=== PATIENT | female | born 1940 | race Caucasian/White ===

== ENCOUNTER 2019-07-24 10:18 | Outpatient (CLI) | payer MEDICARE, OTHER, SELFPAY ==
--- NOTE | ~2019-07-24 | MM_ITS ---
EXAMINATION: MM screening usama BI w genna HISTORY: Screening mammogram TECHNIQUE: Craniocaudal and mediolateral oblique 3-D tomosynthesis images were obtained and synthetic 2-D images were generated. CAD analysis was submitted and interpreted. COMPARISON: 07/20/2018 bilateral digital screening mammogram BREAST PARENCHYMAL COMPOSITION: There are scattered areas of fibroglandular density. FINDINGS: There is no evidence of suspicious mass, calcification, or architectural distortion to sugg est malignancy in either breast. There has been no suspicious interval change. IMPRESSION: 1. No mammographic evidence of malignancy. 2. Recommend routine screening mammography in one year. BI-RADS Category 1: Negative Reviewed, dictated and finalized at location B. 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
== END 2019-07-24 10:19 | disposition home or self-care (01) ==
LOC: ANHIMG 10:20
PROVIDERS: PCP Internal Medicine; Visit Provider Nurse Practitioner
DX: Z12.31 Encounter for screening mammogram for malignant neoplasm of breast (principal)
CPT/HCPCS: 77063; 77067

== ENCOUNTER 2019-08-11 12:44 | Outpatient (CLI) | payer MEDICARE, OTHER, SELFPAY | END 2019-08-11 12:45 | disposition home or self-care (01) | LOC: ANHAUDIO 12:46 | PROVIDERS: PCP Internal Medicine; Visit Provider Nurse Practitioner | DX: H90.3 Sensorineural hearing loss, bilateral (principal) | CPT/HCPCS: 92557; 92567 ==

== ENCOUNTER 2020-01-08 07:28 | Outpatient (CLI) | payer MEDICARE, OTHER, SELFPAY ==
[2020-01-08 08:08] LABS: Alanine Aminotransferase 12 U/L (4-35); Alkaline Phosphatase 68 U/L (38-126); Aspartate Amino Transferase 20 U/L (14-36); Bilirubin,Total 0.3 mg/dL (0.2-1.3); Blood Urea Nitrogen 14 mg/dL (7-17); Calcium 8.5 mg/dL (8.4-10.2); Carbon Dioxide 26 mmol/L (22-30); Chloride 106 mmol/L (98-107); Cholesterol 202 mg/dL (0-200); Estimated Glomerular Filt Rate > 60; Glucose 95 mg/dL (65-105); HDL Direct 40 mg/dL; Potassium 4.1 mmol/L (3.4-5.0); Sodium 138 mmol/L (137-145); Triglycerides 215 mg/dL (<150)
[2020-01-08 08:19] LABS: LDL Cholesterol Direct 128 mg/dL
[2020-01-08 08:37] LABS: Thyroid Stimulating Hormone 0.646 uIU/mL (0.465-4.680)
[2020-01-08 09:06] LABS: Vitamin D 25 Hydroxy 55.6 ng/mL
== END 2020-01-08 07:29 | disposition home or self-care (01) ==
PROVIDERS: PCP Internal Medicine; Visit Provider Nurse Practitioner
DX: E74.39 Other disorders of intestinal carbohydrate absorption (principal); E89.0 Postprocedural hypothyroidism; R63.5 Abnormal weight gain; E55.9 Vitamin D deficiency, unspecified
CPT/HCPCS: 36415; 80053; 80061; 82306; 84443

== ENCOUNTER 2020-01-11 09:50 | Outpatient (CLI) | payer MEDICARE, OTHER, SELFPAY ==
[2020-01-11 11:13] LABS: Iron 32 ug/dL (37-170)
[2020-01-11 11:22] LABS: Percent Iron Saturation 7 % (20-50)
== END 2020-01-11 09:51 | disposition home or self-care (01) ==
LOC: ANHLAB 09:53
PROVIDERS: PCP Internal Medicine; Visit Provider Internal Medicine
DX: G25.81 Restless legs syndrome (principal)
CPT/HCPCS: 36415; 83540; 83550

== ENCOUNTER 2020-01-16 09:52 | Outpatient (CLI) | payer MEDICARE, OTHER, SELFPAY ==
[2020-01-16 11:46] LABS: Ferritin 7.51 ng/mL (11.1-264)
== END 2020-01-16 09:53 | disposition home or self-care (01) ==
PROVIDERS: PCP Internal Medicine; Visit Provider Internal Medicine
DX: E61.1 Iron deficiency (principal)
CPT/HCPCS: 36415; 82728

== ENCOUNTER 2020-02-01 15:00 | Outpatient (CLI) | payer MEDICARE, OTHER, SELFPAY ==
--- NOTE | ~2020-02-01 | CT_ITS ---
EXAMINATION: CT chest wo con EXAM DATE: 02/01/2020 16:09 INDICATION: Solitary pulmonary nodule. TECHNIQUE: Spiral CT of the chest without contrast. Axial, coronal and sagittal images were reviewe d. Coronal maximum intensity pixel images of chest reviewed. The dose-length product (DLP) for this examination was 126.30 mGy-cm. The exposure was tailored according to patient size (auto mA exposur e control), and iterative reconstruction (ASIR) was used as additional dose reduction technique. The re is no prior study for comparison. FINDINGS: Bibasilar linear atelectasis or scarring. There is a 3 mm right lower lobe pleural-based n odule posteriorly. Several similar pleural-based opacities scattered throughout the lungs. There is m ild emphysema. Small apical peripheral opacities likely postinfectious. Mild thyromegaly. There are n o pleural or pericardial effusions. Tracheobronchial tree is patent. There is no mediastinal, hil ar or axillary lymphadenopathy. There is no pneumothorax. Mild cardiomegaly. No evidence of leatha nary arterial calcification. Benign calcifications below the right hemidiaphragm. There is thoracic spondylosis without osteoblastic or osteolytic lesions identified. IMPRESSION: 1. Scattered small nodules likely postinfectious. Consider one-year follow-up held the CT. 2. Cardiomegaly. 3. Goiter.. Reviewed, dictated and finalized at location G.
== END 2020-02-01 15:01 | disposition home or self-care (01) ==
LOC: ANHIMG 15:06
PROVIDERS: PCP Internal Medicine; Visit Provider Internal Medicine
DX: I51.7 Cardiomegaly (principal); E04.1 Nontoxic single thyroid nodule; R91.8 Other nonspecific abnormal finding of lung field
CPT/HCPCS: 71250

== ENCOUNTER 2020-07-09 10:22 | Outpatient (CLI) | payer MEDICARE, OTHER, SELFPAY ==
[2020-07-09 11:43] LABS: Vitamin D 25 Hydroxy 75.4 ng/mL
== END 2020-07-09 10:23 | disposition home or self-care (01) ==
PROVIDERS: PCP Internal Medicine; Visit Provider Internal Medicine
DX: E55.9 Vitamin D deficiency, unspecified (principal)
CPT/HCPCS: 36415; 82306

== ENCOUNTER 2020-07-31 12:28 | Outpatient (CLI) | payer MEDICARE, OTHER, SELFPAY ==
--- NOTE | ~2020-07-31 | MM_ITS ---
EXAMINATION: MM screening usama BI w genna HISTORY: Screening mammogram TECHNIQUE: Craniocaudal and mediolateral oblique 3-D tomosynthesis images were obtained and synthetic 2-D images were generated. CAD analysis was submitted and interpreted. COMPARISON: July 24, 2019, July 20, 2018 bilateral digital screening mammogram examinations BREAST PARENCHYMAL COMPOSITION: There are scattered areas of fibroglandular density. FINDINGS: There is no evidence of suspicious mass, calcification, or architectural distortion to sugg est malignancy in either breast. There has been no suspicious interval change. IMPRESSION: 1. No mammographic evidence of malignancy. 2. Recommend routine screening mammography in one year. BI-RADS Category 1: Negative Reviewed, dictated and finalized at location A. 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
== END 2020-07-31 12:29 | disposition home or self-care (01) ==
LOC: ANHIMG 12:32
PROVIDERS: PCP Internal Medicine; Visit Provider Internal Medicine
DX: Z12.31 Encounter for screening mammogram for malignant neoplasm of breast (principal)
CPT/HCPCS: 77063; 77067

== ENCOUNTER 2021-01-15 09:25 | Outpatient (CLI) | payer MEDICARE, OTHER, SELFPAY ==
[2021-01-15 10:05] LABS: Anion Gap 6 mmol/L (8-16); Blood Urea Nitrogen 15 mg/dL (7-17); Calcium 8.7 mg/dL (8.4-10.2); Carbon Dioxide 28 mmol/L (22-30); Chloride 105 mmol/L (98-107); Cholesterol 197 mg/dL (0-200); Estimated Glomerular Filt Rate > 60; Glucose 88 mg/dL (65-110); HDL Direct 49 mg/dL; Potassium 4.2 mmol/L (3.4-5.0); Sodium 139 mmol/L (137-145); Triglycerides 105 mg/dL (<150)
[2021-01-15 10:16] LABS: LDL Cholesterol Direct 112 mg/dL
[2021-01-15 12:14] LABS: Iron 94 ug/dL (37-170); Percent Iron Saturation 31 % (20-50)
[2021-01-15 12:19] LABS: Vitamin D 25 Hydroxy 64.6 ng/mL
== END 2021-01-15 09:26 | disposition home or self-care (01) ==
LOC: ANHLAB 09:38
PROVIDERS: PCP Internal Medicine; Visit Provider Internal Medicine
DX: E74.39 Other disorders of intestinal carbohydrate absorption (principal); D64.9 Anemia, unspecified; E55.9 Vitamin D deficiency, unspecified; E78.5 Hyperlipidemia, unspecified; E61.1 Iron deficiency
CPT/HCPCS: 36415; 80048; 80061; 82306; 82728; 83540; 83550

== ENCOUNTER 2021-07-12 10:27 | Emergency (ER) | payer MEDICARE, OTHER, SELFPAY ==
[2021-07-12 10:36] VITALS: BP 170/83; PULSE 71; RESP 18; TEMP 36.2; O2SAT 98
--- NOTE | 2021-07-12 10:53 | ED.GENADULT ---
HPI - General Adult General Chief complaint: Back Pain/Injury Stated complaint: Left lower back pain Time Seen by Provider: 07/12/21 10:53 Source: patient Mode of arrival: ambulatory Limitations: no limitations History of Present Illness HPI narrative: 81-year-old female patient presents to the [facility] with complaints of right-sided low back pain for the past 3 weeks. Patient states it is radiating around to the right flank into the right lower abdomen. Patient states that she went to her chiropractor last week and they did x-rays and could not see anything and told her it was probably a pulled muscle. Patient states she has been taking Aleve however the past 7 days has worsened the pain. Denies any pain with urination any foul-smelling urine and denies any dark urine that she is aware of. Patient states she really has not been drinking much water lately. Related Data Home Medications Medication Instructions Recorded Confirmed cholecalciferol (vitamin D3) 25 25 mcg PO DAILY 07/10/19 01/17/21 mcg (1,000 unit) capsule multivitamin 1 tablet PO DAILY 07/10/19 01/17/21 cyclosporine 0.05 % eye drops in a See Rx Instructions EACH EYE Q12H 07/12/19 01/17/21 dropperette Allergies Allergy/AdvReac Type Severity Reaction Status Date / Time No Known Allergies Allergy Verified 01/17/21 09:55 Review of Systems Review of Systems: CONSTITUTIONAL: Denies fever, chills, or sweats. EYES: Denies visual changes, redness, or discharge. ENT: Denies rhinorrhea, congestion, sore throat, or otalgia. CARDIOVASCULAR: Denies chest pain, palpitations, or edema. RESPIRATORY: Denies cough or dyspnea. GASTROINTESTINAL: Denies abdominal pain, nausea, vomiting, or diarrhea. GENITOURINARY: Denies dysuria denies hematuria. SKIN: Denies rash or itching. MUSCULOSKELETAL: Positive right-sided low back pain, denies joint pain, or myalgia. NEUROLOGIC: Denies headache, numbness, or weakness. PSYCHIATRIC: Denies anxiety or depression. [facility] Past Medical History Medical History (Updated 07/12/21 @ 11:02 by FRED Ballard) Arthritis Glucose intolerance Iron deficiency Restless leg syndrome Vitamin D deficiency, unspecified Xerophthalmia Surgical History Surgical History (Updated 07/12/21 @ 11:02 by FRED Ballard) H/O vaginal hysterectomy History of colostomy reversal 2018 Family History Family History Mother Family history of cardiovascular disease Sibling Family history of liver disease Carcinoma of colon Father Cerebrovascular accident Other Family history of malignant neoplasm Social History Social History Smoking status: Never smoker Second hand tobacco smoke exposure: Yes Alcohol intake: never Comments At the time of my signature I agree with nursing past medical history, surgical, social, and family history. There is no relevant family history pertinent to the presenting complaint. Exam Narrative: GENERAL: Well-appearing, well-nourished, and in no acute distress. HEAD: Normocephalic, atraumatic. EYES: PERRLA and EOMI. ENT: Nares clear, no rhinorrhea or epistaxis. Mucous membranes moist. NECK: Supple. No lymphadenopathy CHEST: Clear to auscultation. No respiratory distress. HEART: Regular rate and rhythm. No murmur heard. Normal peripheral pulses. ABDOMEN: Soft, nontender, nondistended, normal active bowel sounds. Right-sided CVA tenderness noted on percussion. EXTREMITIES: Normal range of motion. No edema. BACK: Patient is able to ambulated without assistance. Pt is seated on the chair in no obvouis distress. No surface trauma noted. No muscle tenderness to Palpation. No spasm or mass. No step-offs or deformity noted to the cervical, thoracic or lumbar spine to firm Palpation at the midline. No CVA tenderness to percussion. No saddle anesthesia. ROM: able to stand erect. Normal f
== END 2021-07-12 11:07 | disposition home or self-care (01) ==
PROVIDERS: Emergency Provider Nurse Practitioner Family; PCP Internal Medicine
DX: N30.00 Acute cystitis without hematuria (principal); M19.90 Unspecified osteoarthritis, unspecified site; G25.81 Restless legs syndrome; E74.39 Other disorders of intestinal carbohydrate absorption; E55.9 Vitamin D deficiency, unspecified
CPT/HCPCS: 81003; 87077; 87086; 87186; 99213; G0463

== ENCOUNTER 2021-07-19 08:43 | Outpatient (CLI) | payer MEDICARE, OTHER, SELFPAY ==
[2021-07-19 09:14] LABS: Anion Gap 6 mmol/L (8-16); Blood Urea Nitrogen 12 mg/dL (7-17); Calcium 9.7 mg/dL (8.4-10.2); Carbon Dioxide 30 mmol/L (22-30); Chloride 105 mmol/L (98-107); Estimated Glomerular Filt Rate > 60; Glucose 104 mg/dL (65-110); Potassium 3.9 mmol/L (3.4-5.0); Sodium 141 mmol/L (137-145)
[2021-07-19 10:05] LABS: Iron 70 ug/dL (37-170)
[2021-07-19 10:07] LABS: Vitamin D 25 Hydroxy 68.2 ng/mL
[2021-07-19 10:15] LABS: Percent Iron Saturation 21 % (20-50)
== END 2021-07-19 08:44 | disposition home or self-care (01) ==
LOC: ANHLAB 08:47
PROVIDERS: PCP Internal Medicine; Visit Provider Internal Medicine
DX: E61.1 Iron deficiency (principal); E55.9 Vitamin D deficiency, unspecified; R73.02 Impaired glucose tolerance (oral); E74.39 Other disorders of intestinal carbohydrate absorption
CPT/HCPCS: 36415; 80048; 82306; 82728; 83036; 83540; 83550

== ENCOUNTER → 2021-07-28 13:15 | Outpatient (CLI) | payer MEDICARE, OTHER, SELFPAY ==
--- NOTE | ~2021-07-28 | XR_ITS ---
XR shoulder RT min 2V DATE: 07/28/2021 14:47 INDICATION: Right shoulder pain TECHNIQUE: 4 views COMPARISON: None FINDINGS: There is diffuse osteopenia. Normal alignment at the acromioclavicular and glenohumeral joints. No fracture, dislocation, perioste al reaction or bone destruction is detected. No abnormal soft tissue calcification is noted. IMPRESSION: Osteopenia Reviewed, dictated and finalized at location A. NT SOLICITOR IMPRESSION: Osteopenia
== END ==
PROVIDERS: PCP Internal Medicine; Visit Provider Nurse Practitioner
DX: M25.511 Pain in right shoulder (principal); M85.811 Other specified disorders of bone density and structure, right shoulder
CPT/HCPCS: 73030

== ENCOUNTER 2021-08-13 10:12 | Outpatient (CLI) | payer MEDICARE, OTHER, SELFPAY ==
--- NOTE | ~2021-08-13 | MM_ITS ---
EXAMINATION: MM screening usama BI w genna HISTORY: Screening mammogram TECHNIQUE: Craniocaudal and mediolateral oblique 3-D tomosynthesis images were obtained and synthetic 2-D images were generated. CAD analysis was submitted and interpreted. COMPARISON: July 31, 2020, July 24, 2019, July 20, 2018 bilateral screening mammogram exami [place] BREAST PARENCHYMAL COMPOSITION: There are scattered areas of fibroglandular density. FINDINGS: There is no evidence of suspicious mass, calcification, or architectural distortion to sugg est malignancy in either breast. There has been no suspicious interval change. IMPRESSION: 1. No mammographic evidence of malignancy. 2. Recommend routine screening mammography in one year. BI-RADS Category 1: Negative Reviewed, dictated and finalized at location A. 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
== END 2021-08-13 10:13 | disposition home or self-care (01) ==
LOC: ANHIMG 10:13
PROVIDERS: PCP Internal Medicine; Visit Provider Nurse Practitioner
DX: Z12.31 Encounter for screening mammogram for malignant neoplasm of breast (principal)
CPT/HCPCS: 77063; 77067

== ENCOUNTER 2021-08-27 01:38 | Emergency (ER) | payer MEDICARE, OTHER, SELFPAY ==
[2021-08-27] VITALS (29 sets, daily range): BP systolic 123–167; BP diastolic 58–82; PULSE 49–69; RESP 11–19; TEMP 36.5–36.6; O2SAT 93–99
--- NOTE | ~2021-08-27 | CT_ITS ---
EXAMINATION: CT abdomen pelvis wo con DATE: 08/27/2021 04:03 INDICATION: Right flank pain. TECHNIQUE: Computed tomography (CT) of the abdomen and pelvis was performed without intravenous contr ast. Automated exposure control and iterative reconstruction technique were employed. The dose-length product was 462.59 mGy-cm. COMPARISON: CT abdomen and pelvis 06/10/2018 FINDINGS: The visualized portions of the lung bases demonstrate mild atelectasis. There are tiny pleu ral effusions. Cardiomegaly is noted. No pericardial effusion. There is a small sliding hiatal hernia . There is a 9 mm cyst in the liver. The pancreas, gallbladder, spleen, adrenal glands, and kidneys a re normal. No urolithiasis. There is a pessary in the vagina. The bladder is distended. There is an a nastomosis in the rectosigmoid. There is a large volume of stool in the colon. There are surgical sj nges of the small bowel. The appendix is not visualized. There are no pathologically enlarged lymph n odes. There is trace pelvic ascites. There is prominent fat in right inguinal canal that may be a her jose francisco. There is mild thoracolumbar spondylosis. IMPRESSION: 1. No urolithiasis. 2. Small sliding hiatal hernia. 3. Prominent fat in right inguinal canal that may be a hernia. Reviewed, dictated and finalized at location A. 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
--- NOTE | ~2021-08-27 | XR_ITS ---
EXAMINATION: XR abdomen/kub 1V DATE: 08/27/2021 04:01 INDICATION: Right flank pain. TECHNIQUE: A supine view of the abdomen was obtained. COMPARISON: CT abdomen and pelvis 08/27/2021 FINDINGS: There are no dilated loops of bowel. There is a large volume of stool in the colon. There i s a pessary in the vagina. There are surgical clips in the lower abdomen. IMPRESSION: 1. Nonobstructive bowel gas pattern. Reviewed, dictated and finalized at location A. ARE PROVIDER
--- NOTE | 2021-08-27 01:53 | ECG_ITS ---
Measurements Intervals [place] Rate: 59 P: 39 DE: 203 QRS: 5 QRSD: 85 T: 38 QT: 388 QTc: 387 Interpretive Statements SINUS BRADYCARDIA WITH FIRST-DEGREE AV BLOCK BORDERLINE ECG NO PREVIOUS ECG AVAILABLE FOR COMPARISON Electronically Signed On 08-27-2021 13:15:52 CORK GRINDER by Nelson May M.D.
[2021-08-27] MEDS: ONDANSETRON INJ 4 MG/2 ML VIAL IV PUSH (02:28)
--- NOTE | 2021-08-27 02:40 | ED.BACK ---
HPI - Back Pain/Injury General Chief Complaint: Back Pain/Injury Stated Complaint: right flank pain/ right arm pain Time Seen by Provider: 08/27/21 01:50 Source: patient Mode of arrival: ambulatory Limitations: no limitations History of Present Illness HPI Narrative: This is an 81 year old female who presents for evaluation of right flank pain. Patient has been having pain intermittently for months. She was evaluated from same pain in June and she was diagnosed with kidney infection . She was also seen by chiropractor and told she had pulled muscle . She states her pain returned on Wednesday morning. 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 She is complaining of pain located under right shoulder blade down to her waist. Her pain is worse with movement of arm and twisting of body. She has take tylenol for her pain without relief. She denies abdominal pain, nausea, vomiting, fever, shortness of breath or urinary symptoms. She has also been using heating pad without relief. Related Data Home Medications Medication Instructions Recorded Confirmed cholecalciferol (vitamin D3) 25 25 mcg PO DAILY 07/10/19 08/22/21 mcg (1,000 unit) capsule multivitamin 1 tablet PO DAILY 07/10/19 08/22/21 cyclosporine 0.05 % eye drops in a See Rx Instructions EACH EYE Q12H 07/12/19 08/22/21 dropperette tolterodine 4 mg capsule,extended 4 mg PO DAILY 08/22/21 08/22/21 release 24 hr Allergies Allergy/AdvReac Type Severity Reaction Status Date / Time No Known Allergies Allergy Verified 08/22/21 13:58 Review of Systems Review of Systems: All systems reviewed & are unremarkable except as noted in HPI and below PMFSH Past Medical History Medical History (Updated 08/27/21 @ 06:44 by Kitty Olsen MD) Arthritis Glucose intolerance Iron deficiency Nasal fracture Restless leg syndrome Vitamin D deficiency, unspecified Xerophthalmia Surgical History Surgical History H/O vaginal hysterectomy History of colostomy reversal 2018 Family History Family History Mother Family history of cardiovascular disease Sibling Family history of liver disease Carcinoma of colon Father Cerebrovascular accident Other Family history of malignant neoplasm Social History Social History Smoking status: Never smoker Second hand tobacco smoke exposure: Yes Alcohol intake: never Substance use: never Substance use type: does not use Exam Const: General: no acute distress and alert Orientation/consciousness: patient oriented x3 Eyes: EOM: EOMs intact bilaterally Chest: Chest palpation & inspection: normal inspection of the chest Resp: Effort & Inspection: normal respiratory effort and no retractions Auscultation: clear to auscultation bilaterally Cardio: Rate: regular rate Rhythm: regular rhythm Heart sounds: no murmurs GI: GI Palp: Yes Soft to palpation, No Tenderness to palpation present (GI) and No Guarding due to palpation present (GI) Auscultation: normal bowel sounds : General: Yes CVA tenderness on the right Back/Spine/Pelvis: Thoracic/Lumbar Spine: No thoracic spinal tenderness, No lumbar spinal tenderness and other (right lower muscular tenderness, no swelling) Skin: General skin exam: normal color Rashes: no rashes Neuro: General: patient oriented x3, moves all extremities and CN's II-XI intact bilaterally Extrem: General: normal to inspection Psych: Mental Status: mental status grossly normal Affect: normal affect Course Reevaluation(s) Reevaluation #1: PAtient states she feels much better. She has been given rocephin for UTI. No urolithiasis. Date: 08/27/21 Time: 06:42 Vital Signs Vital signs: Vital Signs Temperature 97.7 F 08/27/21 01:44 Pulse Rate 64 08/27/21 01:
[2021-08-27 02:46] LABS: Basophils Absolute Auto 0.1 K/mm3 (0.0-0.1); Basophils Percent Auto 1.1 % (0.2-1.2); Eosinophils Absolute Auto 0.4 K/mm3 (0-0.3); Eosinophils Percent Auto 7.6 % (0-4.4); Hematocrit 41.9 % (37.0-47.0); Hemoglobin 13.4 g/dL (12.0-15.0); Immature Granulocyte Absolute 0.01 K/mm3 (0.00-0.031); Immature Granulocyte Percent A 0.2 % (0-0.5); Lymphocytes Absolute Auto 1.33 K/mm3 (0.9-3.2); Mean Corpuscular Hemoglobin 32.1 pg (26-34); Mean Corpuscular Volume 100.5 fl (80-100); Mean Platelet Volume 11.6 fl (7.4-10.4); Monocytes Absolute Auto 0.5 K/mm3 (0.1-0.6); Monocytes Percent Auto 11.6 % (2.6-8.5); Neutrophils Absolute Auto 2.3 K/mm3 (1.3-6.7); Neutrophils Percent Auto 50.5 % (45.5-73.1); Platelet Count Result 197 k/mm3 (150-375); Red Blood Count 4.17 M/mm3 (4.2-5.4); Red Cell Distribution Width 12.3 % (11.5-14.5); White Blood Count 4.6 K/mm3 (4.5-10.0)
[2021-08-27 02:52] LABS: Add Urine Microscopic? YES; Appearance Urine Cloudy (Clear); Bacteria Urine Trace /hpf; Bilirubin Urine Negative (Negative); Color Urine Yellow (Yellow); Glucose Urine UA Negative (Negative); Ketones Urine Negative (Negative); Leukocyte Esterase Ur 3+ LEU/UL (Negative); Nitrate Urine Negative (Negative); Protein Urine Negative (Negative); Specific Grav Ur 1.011 (1.001-1.035); Squamous Epithelial Cell Urine Few /hpf (Few); Urobilinogen Urine Negative mg/dL (<2.0); WBC Clumps Urine Present /HPF; WBC Urine >75 /hpf
[2021-08-27 03:00] LABS: Alanine Aminotransferase 13 U/L (4-35); Albumin Level 3.9 g/dL (3.5-5.1); Alkaline Phosphatase 65 U/L (38-126); Anion Gap 4 mmol/L (8-16); Aspartate Amino Transferase 20 U/L (14-36); Bilirubin,Total 0.4 mg/dL (0.2-1.3); Blood Urea Nitrogen 12 mg/dL (7-17); Calcium 8.6 mg/dL (8.4-10.2); Carbon Dioxide 30 mmol/L (22-30); Chloride 103 mmol/L (98-107); Estimated CRCL calculation 49 ml/min; Estimated Glomerular Filt Rate > 60; Glucose 96 mg/dL (65-110); Potassium 4.1 mmol/L (3.4-5.0); Sodium 137 mmol/L (137-145)
[2021-08-27 03:02] LABS: Blood Urine Negative (Negative)
[2021-08-27 03:48] LABS: Lipase 51 U/L (23-300)
== END 2021-08-27 07:16 | disposition home or self-care (01) ==
PROVIDERS: Emergency Provider General Practice; PCP Internal Medicine
DX: N39.0 Urinary tract infection, site not specified (principal); R10.9 Unspecified abdominal pain; M19.90 Unspecified osteoarthritis, unspecified site; G25.81 Restless legs syndrome
CPT/HCPCS: 36415; 74018; 74176; 80053; 81001; 83690; 85025; 87086; 87088; 93005; 96365; 96375; 99284; J0696; J2405

== ENCOUNTER 2021-08-29 04:59 | Emergency (ER) | payer MEDICARE, OTHER, SELFPAY ==
--- NOTE | ~2021-08-29 | XR_ITS ---
EXAMINATION: XR chest 1V portable DATE: 08/29/2021 05:23 INDICATION: Right flank pain. TECHNIQUE: A single frontal view of the chest was obtained. COMPARISON: Chest CT 08/29/2021 FINDINGS: There is mild scarring at the lung apices. There is mild atelectasis in right mid and lower lung zones and left lower lung zone. No pleural effusion or pneumothorax. Cardiomegaly is noted. The re are fractures of right seventh and eighth ribs. IMPRESSION: 1. Mild atelectasis in right mid and lower lung zones and left lower lung zone. 2. Cardiomegaly. 3. Acute fractures of right seventh and eighth ribs. Reviewed, dictated and finalized at location A. LT OPERATOR
--- NOTE | ~2021-08-29 | CT_ITS ---
EXAMINATION: CTA chest PE abdomen pel DATE: 08/29/2021 06:44 INDICATION: Right abdominal pain. Right upper back pain. TECHNIQUE: Computed tomography angiography (CTA) of the chest was performed with 100 mL Omnipaque-350 intravenous contrast timed to evaluate the pulmonary arteries. Coronal maximum intensity projection 3D-reconstructions were created by the technologist. Computed tomography (CT) of the abdomen and pelv is was performed with intravenous contrast. Automated exposure control and iterative reconstruction t echnique were employed. The dose-length product was 628.48 mGy-cm. COMPARISON: CT abdomen and pelvis 08/27/2021 FINDINGS: CTA chest: There is mild scarring at the lung apices. There is mild atelectasis bilaterally. There is a small right pleural effusion. Cardiomegaly is noted. No pericardial effusion. There is no pulmonar y embolus. Left thyroid lobe is enlarged. There are acute fractures of right seventh and eighth ribs. There is mild thoracic spondylosis. There is a benign bone island in T7 vertebral body. CT abdomen and pelvis: There is an 8 mm cyst in the liver. The gallbladder, spleen, pancreas, adrenal glands, and left kidney are normal. There are cysts in right kidney measuring up to 6 mm. There is a pessary in the vagina. There are surgical changes of bowel. There are no dilated loops of bowel. The re are scattered calcifications in the peritoneum. There are no pathologically enlarged lymph nodes. There is no free intraperitoneal fluid. There is a small sliding hiatal hernia. There is prominent fa t in right inguinal canal that may be a hernia. There is a benign bone island in right femoral head. There is a benign bone island in L2 vertebral body. IMPRESSION: 1. No pulmonary embolus. 2. Acute fractures of right seventh and eighth ribs. 3. Small right pleural effusion. Reviewed, dictated and finalized at location A. T METAL SHOP HELPER
--- NOTE | 2021-08-29 05:08 | ECG_ITS ---
Measurements Intervals [place] Rate: 62 P: 43 UT: 184 QRS: 0 QRSD: 86 T: 21 QT: 387 QTc: 394 Interpretive Statements SINUS RHYTHM NORMAL ECG COMPARED TO ECG 08/27/2021 01:51:45 UT INTERVAL IS SLIGHTLY SHORTER Electronically Signed On 08-29-2021 7:16:35 MIXER AND SCALER by Ramirez Bob M.D.
[2021-08-29 05:11] VITALS: BP 154/74; PULSE 65; RESP 16; TEMP 36.5; O2SAT 100
--- NOTE | 2021-08-29 05:13 | ED.GENADULT ---
HPI - General Adult General Chief complaint: Back Pain/Injury Stated complaint: back pain Time Seen by Provider: 08/29/21 05:00 Source: RN notes reviewed History of Present Illness HPI narrative: Patient presents emergency department from home for right flank pain. Patient states that symptoms initially began approximately a month and half ago at that time she had had pain in the right flank that was described as aching in nature she gone to urgent care diagnosed with a UTI states his symptoms had improved but did not completely resolve states that they then worsen over the past week she came to the emergency department 2 days ago was diagnosed with a urinary tract infection for which she has been on antibiotics she states the pain became so severe tonight she had to come in for further evaluation states she has been taking antibiotics and naproxen at home with minimal relief with last dose last night 7 PM she denies any fevers or chills chest pain shortness of breath states pain radiates around into the abdomen denies any nausea or vomiting Related Data Home Medications Medication Instructions Recorded Confirmed cholecalciferol (vitamin D3) 25 25 mcg PO DAILY 07/10/19 08/22/21 mcg (1,000 unit) capsule multivitamin 1 tablet PO DAILY 07/10/19 08/22/21 cyclosporine 0.05 % eye drops in a See Rx Instructions EACH EYE Q12H 07/12/19 08/22/21 dropperette tolterodine 4 mg capsule,extended 4 mg PO DAILY 08/22/21 08/22/21 release 24 hr Allergies Allergy/AdvReac Type Severity Reaction Status Date / Time No Known Allergies Allergy Verified 08/29/21 05:16 Review of Systems Review of Systems: Gen.: Denies fevers or chills ENT: Denies congestion Respiratory: Denies shortness of breath or cough CV: Denies chest pain or palpitations GI: Reports right-sided abdominal pain denies nausea vomiting diarrhea denies burning, urgency, frequency or hematuria Musculoskeletal: Reports right flank pain Neuro: Denies numbness, tingling, weakness or focal weakness Skin: Denies rash Except as documented, all other systems reviewed and negative PMFSH Past Medical History Medical History Arthritis Glucose intolerance Iron deficiency Nasal fracture Restless leg syndrome Vitamin D deficiency, unspecified Xerophthalmia Surgical History Surgical History H/O vaginal hysterectomy History of colostomy reversal 2017 Family History Family History Mother Family history of cardiovascular disease Sibling Family history of liver disease Carcinoma of colon Father Cerebrovascular accident Other Family history of malignant neoplasm Social History Social History Smoking status: Never smoker Second hand tobacco smoke exposure: Yes Alcohol intake: never Substance use: never Substance use type: does not use Exam Narrative: APPEARANCE: No acute distress, nontoxic, resting in bed EYES: EOMI HEENT: Normocephalic, atraumatic, OMM RESPIRATORY: No respiratory distress Clear to auscultation bilaterally with no rhonchi wheezing or rales. CARDIOVASCULAR: Regular rate and rhythm without murmurs rubs or gallops. ABDOMINAL: Soft, nondistended tender to palpation right upper quadrant and epigastric region and right lower quadrant no tenderness left upper quadrant left lower quadrant no rebound or guarding MUSCULOSKELETAl: Moves all extremities. No clubbing, cyanosis or edema. Back no midline thoracic lumbar tenderness palpation tender palpation over right posterior ribs 8 through 10 no swelling or ecchymosis pain worse with movement of the torso NEURO: Awake and alert. Following commands, speech normal, no focal deficits SKIN:: Warm, dry. No rashes lesions or abrasions PSYCHIATRIC: Normal affect/mood, Course
[2021-08-29] MEDS: MORPHINE SULFATE (*CRX) 2 MG/ML INJ IV PUSH (05:29)
[2021-08-29 05:33] VITALS: BP 152/66; PULSE 62; RESP 16; O2SAT 99
[2021-08-29 06:04] LABS: Add Urine Microscopic? YES; Alanine Aminotransferase 15 U/L (4-35); Albumin Level 4.4 g/dL (3.5-5.1); Alkaline Phosphatase 68 U/L (38-126); Anion Gap 9 mmol/L (8-16); Appearance Urine Clear (Clear); Aspartate Amino Transferase 25 U/L (14-36); Bacteria Urine Trace /hpf; Bilirubin Urine Negative (Negative); Bilirubin,Total 0.6 mg/dL (0.2-1.3); Blood Urea Nitrogen 17 mg/dL (7-17); Blood Urine Negative (Negative); Calcium 8.4 mg/dL (8.4-10.2); Carbon Dioxide 26 mmol/L (22-30); Chloride 103 mmol/L (98-107); Color Urine Yellow (Yellow); Estimated CRCL calculation 49 ml/min; Estimated Glomerular Filt Rate > 60; Glucose 92 mg/dL (65-110); Glucose Urine UA Negative (Negative); Ketones Urine Negative (Negative); Leukocyte Esterase Ur 3+ LEU/UL (Negative); Lipase 77 U/L (23-300); Nitrate Urine Negative (Negative); Potassium 4.1 mmol/L (3.4-5.0); Protein Urine Negative (Negative); RBC Urine 0-2 /hpf (0-2); Sodium 138 mmol/L (137-145); Specific Grav Ur 1.012 (1.001-1.035); Squamous Epithelial Cell Urine Rare /hpf (Few); Urobilinogen Urine Negative mg/dL (<2.0); WBC Urine 21-30 /hpf
[2021-08-29 06:13] LABS: Basophils Absolute Auto 0.1 K/mm3 (0.0-0.1); Basophils Percent Auto 1.3 % (0.2-1.2); Eosinophils Absolute Auto 0.3 K/mm3 (0-0.3); Eosinophils Percent Auto 5.7 % (0-4.4); Hematocrit 45.2 % (37.0-47.0); Immature Granulocyte Absolute 0.01 K/mm3 (0.00-0.031); Immature Granulocyte Percent A 0.2 % (0-0.5); Lymphocytes Absolute Auto 1.69 K/mm3 (0.9-3.2); Lymphocytes Percent Auto 30.3 % (18.3-44.2); Mean Corpuscular HGB Conc 33.2 g/dl (32-36); Mean Corpuscular Hemoglobin 32.4 pg (26-34); Mean Corpuscular Volume 97.6 fl (80-100); Mean Platelet Volume 12.5 fl (7.4-10.4); Monocytes Absolute Auto 0.5 K/mm3 (0.1-0.6); Monocytes Percent Auto 8.4 % (2.6-8.5); Neutrophils Percent Auto 54.1 % (45.5-73.1); Platelet Count Result 182 k/mm3 (150-375); Red Blood Count 4.63 M/mm3 (4.2-5.4); Red Cell Distribution Width 11.9 % (11.5-14.5); White Blood Count 5.6 K/mm3 (4.5-10.0)
[2021-08-29 06:16] LABS: Troponin I < 0.012 ng/mL (0.000-0.034)
[2021-08-29 07:24] VITALS: BP 153/63; PULSE 60; RESP 16; O2SAT 98
== END 2021-08-29 07:28 | disposition home or self-care (01) ==
PROVIDERS: Emergency Provider Emergency Medicine; PCP Internal Medicine
DX: S22.41XA Multiple fractures of ribs, right side, initial encounter for closed fracture (principal); N39.0 Urinary tract infection, site not specified; M19.90 Unspecified osteoarthritis, unspecified site; G25.81 Restless legs syndrome; E55.9 Vitamin D deficiency, unspecified; E61.1 Iron deficiency; I51.7 Cardiomegaly; X58.XXXA Exposure to other specified factors, initial encounter
CPT/HCPCS: 36415; 71045; 71275; 74177; 80053; 81001; 83690; 84484; 85025; 87086; 87088; 93005; 96374; 99284; J2270; Q9967

== ENCOUNTER 2021-09-12 10:10 | Outpatient (CLI) | payer MEDICARE, OTHER, SELFPAY ==
[2021-09-12 10:35] LABS: Add Urine Microscopic? YES; Appearance Urine Clear (Clear); Bilirubin Urine Negative (Negative); Blood Urine Negative (Negative); Color Urine Yellow (Yellow); Glucose Urine UA Negative (Negative); Ketones Urine Negative (Negative); Leukocyte Esterase Ur Negative LEU/UL (Negative); Nitrate Urine Negative (Negative); Protein Urine Negative (Negative); RBC Urine 0-2 /hpf (0-2); Specific Grav Ur 1.015 (1.001-1.035); Urobilinogen Urine Negative mg/dL (<2.0); WBC Urine 0-3 /hpf
== END 2021-09-12 10:11 | disposition home or self-care (01) ==
LOC: ANHLAB 10:13
PROVIDERS: PCP Internal Medicine; Visit Provider Nurse Practitioner
DX: N39.0 Urinary tract infection, site not specified (principal)
CPT/HCPCS: 81001

== ENCOUNTER → 2021-10-15 10:20 | Outpatient (CLI) | payer MEDICARE, OTHER, SELFPAY ==
--- NOTE | ~2021-10-15 | DEXA_ITS ---
Bone Density Report Name: AMINATA MONTALVO I Age: 81 Sex: Female Ethnicity: White Date of : 1940 Indication: postmenopausal; screening for osteoporosis; height loss; prior fracture; hysterectomy; Referring Provider: Mitali Hoang Study: Bone densitometry was performed. Exam Date: October 15, 2021 Accession number: [id number] Bone Density: Region BMD T-score Z-score Classification AP Spine (L1-L4) 0.942 -1.0 1.8 Normal Femoral Neck (Left) 0.646 -1.8 0.5 Osteopenia Total Hip (Left) 0.799 -1.2 1.0 Osteopenia Femoral Neck (Right) 0.670 -1.6 0.8 Osteopenia Total Hip (Right) 0.796 -1.2 1.0 Osteopenia Total Hip Mean 0.798 -1.2 1.0 Osteopenia World Health Organization criteria for BMD impression classify patients as: Normal (T-score at or above -1.0), Osteopenia (T-score between -1.0 and -2.5), or Osteoporosis (T-score at or below -2.5). 10-year Fracture Risk(1): Major Osteoporotic Fracture 22% Hip Fracture 5.6% Reported Risk Factors: [place] (), Neck BMD=0.646, BMI=26.4, previous fracture (1) FRAX(R) Version 3.08. Fracture probability calculated for an untreated patient. Fracture probability may be lower if the patient has received treatment. Clinical Information Provided by Patient: Has had a low trauma fracture Has used the following medications: Fosamax (i.e. alendronate), Vitamin D, Calcium Has the following medical conditions: Hysterectomy Patient maximum height was 66 Menopause Age: 32 Drinks caffeinated beverages Onset of menses at age 13 Number of children 3 Impression: The patient has low bone mass, based on the Left Femoral Neck T-score. The patient has an estimated ten-year risk of hip fracture of 5.6% and an estimated ten-year risk of major fracture of 22%, based on the WHO FRAX algorithm. The patient has risk factors, including: previous fracture. Discussion: BONE DENSITY IS LOW AT ONE OR MORE SKELETAL SITES. THE PATIENT'S BMD AND CLINICAL RISK FACTORS CONTRIBUTE TO THIS PATIENT'S HIGH RISK OF FRACTURE. This patient's lowest T-score is low at one or more skeletal sites. It meets the World Health Organization's (WHO) criteria for ?low bone mass? (T-score between -1.0 and -2.5). The patient's 10-year risk of hip fracture and 10 year risk of a major osteoporotic fracture as calculated by FRAX exceeds the threshold where pharmacological therapy is recommended by the National Osteoporosis Foundation (NOF). However, all treatment decisions require clinical judgment and consideration of individual patient factors, including patient preferences, comorbidities, previous drug use, risk factors not captured in the FRAX model (e.g., frailty, falls, vitamin D deficiency, increased bone turnover, interval significant decline in bone density) and possible under or overestimation of fractur
== END ==
PROVIDERS: PCP Internal Medicine; Visit Provider Nurse Practitioner
DX: Z78.0 Asymptomatic menopausal state (principal); M85.852 Other specified disorders of bone density and structure, left thigh; M85.851 Other specified disorders of bone density and structure, right thigh
CPT/HCPCS: 77080

== ENCOUNTER 2021-11-14 10:30 | Outpatient (CLI) | payer MEDICARE, OTHER, SELFPAY ==
[2021-11-14 11:33] LABS: Thyroid Stimulating Hormone 0.301 uIU/mL (0.465-4.680)
[2021-11-17 15:25] LABS: Red Blood Cell Folate 546 ng/mL RBC (>280)
== END 2021-11-14 10:31 | disposition home or self-care (01) ==
LOC: ANHLAB 10:31
PROVIDERS: PCP Internal Medicine; Visit Provider Internal Medicine
DX: R41.3 Other amnesia (principal)
CPT/HCPCS: 36415; 82607; 82747; 84443

== ENCOUNTER 2021-11-19 11:39 | Outpatient (CLI) | payer MEDICARE, OTHER, SELFPAY ==
[2021-11-19 13:27] LABS: Free T4 Free Thyroxine 1.19 ng/mL (0.78-2.19)
== END 2021-11-19 11:40 | disposition home or self-care (01) ==
LOC: ANHLAB 11:41
PROVIDERS: PCP Internal Medicine; Visit Provider Internal Medicine
DX: E78.5 Hyperlipidemia, unspecified (principal)
CPT/HCPCS: 36415; 84439

== ENCOUNTER 2021-11-21 10:43 | Outpatient (CLI) | payer MEDICARE, OTHER, SELFPAY ==
--- NOTE | ~2021-11-21 | MR_ITS ---
EXAMINATION: MR brain/brain stem wo con DATE: 11/21/2021 11:19 INDICATION: Other amnesia. TECHNIQUE: Magnetic resonance imaging (MRI) of the brain and brainstem was performed without intraven ous contrast. COMPARISON: None. FINDINGS: There is no intracranial hemorrhage, acute infarction, or abnormal intracranial mass lesion . There are scattered areas of nonspecific increased T2-weighted signal intensity in the cerebral whi te matter, which is within normal limits for the patient's age. The ventricles are normal in size. Th e paranasal sinuses are clear. The orbits are normal. The mastoid air cells are normal. IMPRESSION: 1. Normal aging brain. Reviewed, dictated and finalized at location A. IMPRESSION: 1. Normal aging brain.
== END 2021-11-21 10:44 | disposition home or self-care (01) ==
LOC: ANHIMG 10:49
PROVIDERS: PCP Internal Medicine; Visit Provider Internal Medicine
DX: R41.3 Other amnesia (principal)
CPT/HCPCS: 70551

== ENCOUNTER 2021-12-20 08:53 | Emergency (ER) | payer MEDICARE, OTHER, SELFPAY ==
--- NOTE | ~2021-12-20 | XR_ITS ---
XR chest 1V portable DATE: 12/20/2021 10:42 INDICATION: Covid infection TECHNIQUE: Portable upright AP chest on 12/20/2021 COMPARISON: 08/29/2021 portable AP chest 08/29/2021 CTA chest abdomen pelvis FINDINGS: Cardiomegaly. Aortic arch calcification. Minimal atelectasis in the lower lung zones. No pulmonary consolidation, pleural effusion, pulmonary vascular congestion or pneumothorax is evident Diffuse osteopenia. IMPRESSION: Cardiomegaly, aortic atherosclerosis Minimal atelectasis in the lower lung zones Reviewed, dictated and finalized at location A.
[2021-12-20 09:15] VITALS: BP 113/88; PULSE 70; RESP 18; TEMP 36.5; O2SAT 100
--- NOTE | 2021-12-20 10:06 | ED.URI ---
HPI - URI/Sore Throat General Chief Complaint: Upper Respiratory Infection Stated Complaint: covid positive Time Seen by Provider: 12/20/21 10:06 History of Present Illness HPI Narrative: pt exposed to covid had all vaccines and booster, then last night cough head congestion, home positive test today no f/nv/d just coughing so much threw up today no other cp/sob/neuro cahgnes no dm/smoking Related Data Home Medications Medication Instructions Recorded Confirmed cholecalciferol (vitamin D3) 25 25 mcg PO DAILY 07/10/19 11/13/21 mcg (1,000 unit) capsule multivitamin 1 tablet PO DAILY 07/10/19 11/13/21 cyclosporine 0.05 % eye drops in a See Rx Instructions ophthalmic 07/12/19 11/13/21 dropperette (Restasis) (eye) Q12H tolterodine 4 mg capsule,extended 4 mg PO DAILY 08/22/21 11/13/21 release 24 hr (Detrol [place]) Allergies Allergy/AdvReac Type Severity Reaction Status Date / Time No Known Allergies Allergy Verified 11/13/21 08:52 Review of Systems Constitutional: Comments: CONSTITUTIONAL: Denies fever, chills, or sweats. EYES: Denies visual changes, redness, or discharge. ENT: Denies rhinorrhea, sore throat, or otalgia. has congestion CARDIOVASCULAR: Denies chest pain, palpitations, or edema. RESPIRATORY: Denies or dyspnea. has cough GASTROINTESTINAL: Denies abdominal pain, nausea, vomiting, or diarrhea. GENITOURINARY: Denies dysuria or hematuria. SKIN: Denies rash or itching. MUSCULOSKELETAL: Denies back pain, joint pain, or myalgia. NEUROLOGIC: Denies headache, numbness, or weakness. PSYCHIATRIC: Denies anxiety or depression. [facility] Past Medical History Medical History Arthritis Glucose intolerance Iron deficiency Nasal fracture Restless leg syndrome Vitamin D deficiency, unspecified Xerophthalmia Surgical History Surgical History H/O vaginal hysterectomy History of colostomy reversal 2017 Family History Family History Mother Family history of cardiovascular disease Sibling Family history of liver disease Carcinoma of colon Father Cerebrovascular accident Other Family history of malignant neoplasm Social History Social History Smoking status: Never smoker Second hand tobacco smoke exposure: Yes Alcohol intake: never Substance use: never Substance use type: does not use Exam Const: Other: APPEARANCE: Well appearing, no pain in distress, well-nourished. Head normocephalic atraumtaic. EYES: PERRLA/EOMI, conjunctivae very clear. NOSE: Normal no drainage EARS:TMS clear Bertha Williamson, with good light reflex. THROAT: Pharynx clear, no exudate. NECK: Supple. No adenopathy, no masses. RESPIRATORY: Airway patent, repsirations nonlabored. Clear to auscultation bilaterally, no rales, rhonchi, wheezing. CARDIOVASCULAR: Regular rate and rhythm without murmurs rubs or gallops. ABDOMINAL: Soft, nontender, nondistended, no hepatosplenomegally MUSCULOSKELETAl: Moves all extremities. Strenght/ROM intact, No edema, No calf tenderness. NEURO: Alert. Cranial nerves II through XII intact. Good gait. Good coordination SKIN:: Warm, dry. Normal Color PSYCHIATRIC: Normal affect/mood, normal interaction with parents. Course Course Emergency Course: explained to pt option for outpt infusion no paxlovied interaction with her medications otc and inhaler, pt good with this Vital Signs Vital signs: Vital Signs Temperature 36.5 C 12/20/21 09:15 Pulse Rate 70 12/20/21 09:15 Respiratory Rate 18 12/20/21 09:15 Blood Pressure 113/88 12/20/21 09:15 Pulse Oximetry 100 12/20/21 09:15 Oxygen Delivery Room Air 12/20/21 09:15 Temperature 36.5 C 12/20/21 09:15 Pulse Rate 65 12/20/21 10:41 Respiratory Rate 16 12/20/21 10:41 Blood Pressure 113/88
[2021-12-20] MEDS: ALBUTEROL SULFATE (*SP) AEROSOL 1 PUFF 2 PUFF INHALATION (10:36)
[2021-12-20 10:41] VITALS: PULSE 65; RESP 16
== END 2021-12-20 11:46 | disposition home or self-care (01) ==
PROVIDERS: Emergency Provider Emergency Medicine; PCP Internal Medicine
DX: U07.1 COVID-19 (principal)
CPT/HCPCS: 71045; 94640; 99283; A9270

== ENCOUNTER 2022-01-23 07:13 | Outpatient (CLI) | payer MEDICARE, OTHER, SELFPAY ==
[2022-01-23 08:18] LABS: Alanine Aminotransferase 11 U/L (6-35); Albumin Level 4.2 g/dL (3.5-5.1); Alkaline Phosphatase 69 U/L (38-126); Anion Gap 5 mmol/L (8-16); Aspartate Amino Transferase 22 U/L (14-36); Bilirubin,Total 0.6 mg/dL (0.2-1.3); Blood Urea Nitrogen 9 mg/dL (7-17); Calcium 8.6 mg/dL (8.4-10.2); Carbon Dioxide 30 mmol/L (22-30); Chloride 103 mmol/L (98-107); Estimated Glomerular Filt Rate > 60; Glucose 93 mg/dL (65-110); Potassium 4.1 mmol/L (3.4-5.0); Sodium 138 mmol/L (137-145)
[2022-01-23 08:47] LABS: Hemoglobin A1C 5.1 % (<5.7)
[2022-01-23 10:53] LABS: Iron 98 ug/dL (37-170)
[2022-01-23 10:59] LABS: Percent Iron Saturation 31 % (20-50)
== END 2022-01-23 07:14 | disposition home or self-care (01) ==
LOC: ANHLAB 07:19
PROVIDERS: PCP Internal Medicine; Visit Provider Nurse Practitioner
DX: E61.1 Iron deficiency (principal); E55.9 Vitamin D deficiency, unspecified; E74.39 Other disorders of intestinal carbohydrate absorption; R73.02 Impaired glucose tolerance (oral); E78.5 Hyperlipidemia, unspecified
CPT/HCPCS: 36415; 80053; 82306; 83036; 83540; 83550

== ENCOUNTER 2022-02-05 09:26 | Outpatient (CLI) | payer MEDICARE, OTHER, SELFPAY ==
--- NOTE | ~2022-02-05 | XR_ITS ---
EXAMINATION: XR UGIAC w barium swallow DATE: 02/05/2022 10:12 INDICATION: Dysphagia, unspecified TECHNIQUE: The patient drank thick barium, gas-producing crystals, and thin barium. Conventional supi ne abdomen radiographs and fluoroscopy of the esophagus, stomach, and proximal small bowel were perfo rmed. Fluoroscopy exposure time was 3.0 minutes. The DAP for this procedure was 10 Gycm2. COMPARISON: 02/15/2018 FINDINGS: There is no mass or stricture of the esophagus. Presbyesophagus is noted. There is laryngea l penetration and silent aspiration. There is a small hiatal hernia. There was spontaneous gastroesop hageal reflux. The stomach and proximal small bowel show normal folding patterns. IMPRESSION: 1. Laryngeal penetration and silent aspiration. Speech pathology evaluation is recommended. 2. Small sliding hiatal hernia with spontaneous gastroesophageal reflux. Reviewed, dictated and finalized at location A.
== END 2022-02-05 09:27 | disposition home or self-care (01) ==
LOC: ANHIMG 09:30
PROVIDERS: PCP Internal Medicine; Visit Provider Internal Medicine
DX: R13.10 Dysphagia, unspecified (principal); K44.9 Diaphragmatic hernia without obstruction or gangrene
CPT/HCPCS: 74246

== ENCOUNTER 2022-03-13 08:36 | Outpatient (CLI) | payer MEDICARE, OTHER, SELFPAY ==
--- NOTE | ~2022-03-13 | XR_ITS ---
EXAMINATION: XR barium swallow modified DATE: 03/13/2022 09:34 INDICATION: Dysphagia, unspecified. TECHNIQUE: The patient was given barium-containing material of multiple consistencies to swallow by t sb speech pathologist while I performed fluoroscopy. Fluoroscopy exposure time was 1.7 minutes. The n umber of fluoroscopy images saved to the PACS was 1. Dose-area product was 1.127 Gy-cm^2. FINDINGS: There was reduced tongue base retraction, reduced pharyngeal squeeze, vallecular residue, piriform si nus residue, and pharyngeal wall residue. IMPRESSION: 1. No aspiration. 2. Please refer to the speech therapy report for recommendations. Reviewed, dictated and finalized at location A.
--- NOTE | 2022-03-13 09:55 | REHSTMBS ---
Assessment and note entered by Debra Hardin, FUR TRAPPER Modified Barium Swallow Evaluation Feeding Type Recommended Oral Food Consistency Regular, Level 7 Liquid Consistency Thin (0) Treatment Recommendations Effortful Swallow ST Clinical Summary MODIFIED BARIUM SWALLOW STUDY (MBS) This patient was seen for a Modified Barium Swallow study at the request of her physician secondary to her complaints of pills becoming stuck in the base of her throat. She reported that she has had difficulty swallowing larger pills, bread, and meat for several years and reports that she feels the pills and other solid foods at the base of her throat, moreso on the right side. Patient stated that these episodes occur randomly and inconsistently. This MBS was administered to assess this patient's ability to tolerate solid material and avoid penetration/ aspiration. The patient consumed all consistencies with no evidence of penetration or aspiration. Of note is consistent pharyngeal residue from the level of the valleculae to the level of the base of the pharynx and pyriform sinuses. An A-P view was taken and patient did exhibit significantly greater residue on the right side of her pharynx as she indicated. Results indicate this patient's swallowing skills are grossly within normal limits. Due to evidence of right-sided residue and due to her complaints of solids hanging up, she was instructed in the use of hard, effortful swallows and use of chin- [id number] to increase the base of tongue retraction for a more efficient clearing of pooled material. Additionally, it was suggested that she consult with her pharmacist to discuss modifying medications to a more comfortable size or consistency. She voiced and demonstrated good understanding of recommendations. No further Speech Therapy is indicated. Thank you for this referral.
== END 2022-03-13 08:37 | disposition home or self-care (01) ==
PROVIDERS: PCP Internal Medicine; Visit Provider Internal Medicine
DX: R13.10 Dysphagia, unspecified (principal)
CPT/HCPCS: 36415; 83735; 92611

== ENCOUNTER 2022-03-13 10:09 | Outpatient (CLI) | payer MEDICARE, OTHER, SELFPAY ==
[2022-03-13 11:12] LABS: Magnesium 2.4 mg/dL (1.6-2.3)
== END 2022-03-13 10:10 | disposition home or self-care (01) ==
PROVIDERS: PCP Internal Medicine; Visit Provider Internal Medicine
DX: G47.62 Sleep related leg cramps (principal)
CPT/HCPCS: 36415; 83735

== ENCOUNTER 2022-04-11 14:44 | Observation (INO) | payer MEDICARE, OTHER, SELFPAY ==
[2022-04-11] VITALS (13 sets, daily range): BP systolic 100–143; BP diastolic 45–81; PULSE 54–155; RESP 14–19; TEMP 36.3–36.5; O2SAT 93–100; BMI 25.9
--- NOTE | ~2022-04-11 | XR_ITS ---
EXAMINATION: XR chest 1V portable DATE: 04/11/2022 15:21 INDICATION: Chest pain. New onset arrhythmia. TECHNIQUE: frontal view of the chest was obtained. COMPARISON: Chest radiograph dated 12/20/[address] studies dated 08/29/2021 and 02/01/2020 FINDINGS: New nodular opacity projecting over the right midlung zone which corresponds to calcification associa akhil with a previously acute posterior right seventh rib fracture. Unchanged chronic airspace opacity at the lateral left lower lung zone corresponding to a region of discoid atelectasis/scarring at the lingula seen on the prior chest CT studies. No other airspace opacities, pulmonary edema, pleural eff usion or pneumothorax. Borderline heart size. IMPRESSION: 1. No acute cardiopulmonary disease. 2. Borderline heart size. Reviewed, dictated and finalized at location A.
--- NOTE | ~2022-04-11 | US_ITS ---
EXAMINATION: US thyroid DATE: 04/13/2022 10:16 INDICATION: Abnormal thyroid function tests. TECHNIQUE: Multiple ultrasound images of the thyroid were obtained. COMPARISON: None. FINDINGS: The right thyroid lobe measures 3.8 x 1.5 x 2.1 cm. The left thyroid lobe measures 5.2 x 2.2 x 2.6 c m. The thyroid demonstrates heterogeneous echogenicity and is filled with nodules of similar ultraso und appearance without normal intervening parenchyma. Vascularity is increased. IMPRESSION: 1. 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 Reviewed, dictated and finalized at location A.
--- NOTE | 2022-04-11 14:45 | ECG_ITS ---
Measurements Intervals [place] Rate: 140 P: [place]: 0 QRS: 13 QRSD: 82 T: -27 QT: 229 QTc: 350 Interpretive Statements ATRIAL FIBRILLATION WITH RAPID VENTRICULAR RESPONSE MINIMAL VOLTAGE CRITERIA FOR LVH, CONSIDER NORMAL VARIANT [MEETS CRITERIA IN ONE OF: R(aVL), S(V1), R(V5), R(V5/V6)+S(V1)] NONSPECIFIC ST & T-WAVE ABNORMALITY ABNORMAL RHYTHM ECG COMPARED TO ECG 08/29/2021 05:18:34 ATRIAL FIBRILLATION NOW PRESENT T-WAVE ABNORMALITY NOW PRESENT Electronically Signed On 04-11-2022 18:53:23 CDT by Zuleyka Salmon M.D.
--- NOTE | 2022-04-11 14:58 | ED.ARRPALP ---
HPI - Arrhythmia/Palpitations General Chief Complaint: Arrhythmia/Palpitations Stated Complaint: palpitations Time Seen by Provider: 04/11/22 14:56 History of Present Illness HPI narrative: Patient is an 82-year-old female with a history of restless leg syndrome presenting with palpitations. Patient states that she was in her normal state of health until this afternoon when she laid down for a nap and felt like her heart was racing. She also complains of pain under her left breast and to her left shoulder. She denies shortness of breath or lightheadedness. Denies recent fevers, cough, abdominal pain, nausea or vomiting, diarrhea, dysuria, leg swelling. Related Data Home Medications Medication Instructions Recorded Confirmed multivitamin 1 tablet PO DAILY 07/10/19 04/11/22 cyclosporine 0.05 % eye drops in a 2 drp ophthalmic (eye) Q12H 07/12/19 04/11/22 dropperette (Restasis) tolterodine 4 mg capsule,extended 4 mg PO DAILY 08/22/21 04/11/22 release 24 hr (Detrol [place]) cholecalciferol (vitamin D3) 25 25 mcg PO .COMPLEX 01/28/22 04/11/22 mcg (1,000 unit) capsule alendronate 70 mg tablet 70 mg PO WEEKLY 04/11/22 04/11/22 calcium-vitamin D3-vitamin K 500 1 tablet PO DAILY 04/11/22 04/11/22 mg-200 unit-40 mcg chewable tablet ferrous sulfate 325 mg (65 mg 325 mg PO HS 04/11/22 04/11/22 iron) tablet (FeroSul) fluticasone propionate 50 1 spray intranasal HS 04/11/22 04/11/22 mcg/actuation nasal spray,suspension pantoprazole 20 mg tablet,delayed 20 mg PO HS 04/11/22 04/11/22 release pramipexole 1.5 mg tablet 1.5 mg PO HS 04/11/22 04/11/22 vit C 250 mg-vit E 90 mg-zinc 40 1 tablet PO BID 04/11/22 04/11/22 mg-copper 1 [id number] capsule (PreserVision AREDS-2) Allergies Allergy/AdvReac Type Severity Reaction Status Date / Time No Known Allergies Allergy Verified 04/11/22 20:07 Review of Systems Review of Systems: All systems reviewed & are unremarkable except as noted in HPI and below PMFSH Past Medical History Medical History (Updated 04/13/22 @ 04:45 by Gabby Joseph MD) Abnormal TSH Arthritis B12 deficiency Close exposure to COVID-19 virus COVID-19 Dysphag[place] GERD without esophagitis Glucose intolerance Hyperlipidemia Iron deficiency Memory loss Nasal fracture Nocturnal leg cramps Overactive bladder Restless leg syndrome Screening for breast cancer Screening for lipid disorders Trochanteric bursitis, left hip Trochanteric bursitis, right hip UTI (urinary tract infection) Vitamin D deficiency, unspecified Xerophthalmia Surgical History Surgical History H/O partial thyroidectomy H/O vaginal hysterectomy History of colostomy reversal 2017 the patient stated that she had of colonoscopy and her bowel was perforated. The patient stated that she has had multiple surgeries to fix the perforation. The patient had a colostomy for a while and then had a reversed. Family History Family History (Updated 04/12/22 @ 10:48 by Zuleyka Salmon MD) Mother Family history of cardiovascular disease Sibling Carcinoma of colon Father Cerebrovascular accident 2 strokes, age 94 Sibling Family history of malignant neoplasm Sibling Lung cancer Sibling Lung cancer Other Parents Social History Social History Social History: The patient is x2. 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 The patient has 3 children. 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 The patient is a lifelong nonsmoker and rarely drinks. No marijuana or illicit drugs. Code status full code Smoking status: Never smoker Second hand tobacco smoke exposure: Yes Alcohol intake
[2022-04-11] MEDS: dilTIAZem HCl INJ 25 MG/5 ML VIAL 10 MG IV PUSH (15:14)
[2022-04-11] MEDS: SODIUM CHLORIDE 0.9% IV 1,000 ML 999 ML IV CONT (15:14)
[2022-04-11 15:25] LABS: Basophils Absolute Auto 0.1 K/mm3 (0.0-0.1); Basophils Percent Auto 0.8 % (0.2-1.2); Eosinophils Absolute Auto 0.1 K/mm3 (0-0.3); Eosinophils Percent Auto 1.1 % (0-4.4); Hematocrit 46.8 % (37.0-47.0); Hemoglobin 15.4 g/dL (12.0-15.0); Immature Granulocyte Absolute 0.02 K/mm3 (0.00-0.031); Immature Granulocyte Percent A 0.2 % (0-0.5); Lymphocytes Absolute Auto 1.58 K/mm3 (0.9-3.2); Lymphocytes Percent Auto 17.9 % (18.3-44.2); Mean Corpuscular HGB Conc 32.9 g/dl (32-36); Mean Corpuscular Hemoglobin 31.7 pg (26-34); Mean Corpuscular Volume 96.3 fl (80-100); Mean Platelet Volume 12.5 fl (7.4-10.4); Monocytes Absolute Auto 0.7 K/mm3 (0.1-0.6); Monocytes Percent Auto 8.2 % (2.6-8.5); Neutrophils Absolute Auto 6.3 K/mm3 (1.3-6.7); Neutrophils Percent Auto 71.8 % (45.5-73.1); Platelet Count Result 224 k/mm3 (150-375); Red Blood Count 4.86 M/mm3 (4.2-5.4); Red Cell Distribution Width 12.6 % (11.5-14.5); White Blood Count 8.8 K/mm3 (4.5-10.0)
[2022-04-11 15:38] LABS: INR 0.9; Partial Thromboplastin Time 27.4 SECONDS (22.3-36.8)
[2022-04-11 15:38] LABS: Alanine Aminotransferase 19 U/L (6-35); Albumin Level 5.1 g/dL (3.5-5.1); Alkaline Phosphatase 75 U/L (38-126); Anion Gap 17 mmol/L (8-16); Aspartate Amino Transferase 23 U/L (14-36); Bilirubin,Total 0.8 mg/dL (0.2-1.3); Blood Urea Nitrogen 14 mg/dL (7-17); Calcium 9.4 mg/dL (8.4-10.2); Carbon Dioxide 24 mmol/L (22-30); Chloride 105 mmol/L (98-107); Estimated CRCL calculation 46 ml/min; Estimated Glomerular Filt Rate > 60; Glucose 124 mg/dL (65-110); Magnesium 2.2 mg/dL (1.6-2.3); Potassium 3.8 mmol/L (3.4-5.0); Sodium 146 mmol/L (137-145)
[2022-04-11 15:49] LABS: Troponin I < 0.012 ng/mL (0.000-0.034)
[2022-04-11 16:28] LABS: Add Urine Microscopic? NO; Appearance Urine Clear (Clear); Bilirubin Urine Negative (Negative); Blood Urine Negative (Negative); Color Urine Colorless (Yellow); Glucose Urine UA Negative (Negative); Ketones Urine Negative (Negative); Leukocyte Esterase Ur Negative LEU/UL (Negative); Nitrate Urine Negative (Negative); Protein Urine Negative (Negative); Urobilinogen Urine Negative mg/dL (<2.0)
[2022-04-11 16:34] LABS: Specific Grav Ur 1.003 (1.001-1.035)
--- NOTE | 2022-04-11 16:44 | ECG_ITS ---
Measurements Intervals [place] Rate: 62 P: 41 [place]: 201 QRS: 20 QRSD: 77 T: 38 QT: 388 QTc: 396 Interpretive Statements SINUS RHYTHM COMPARED TO ECG 04/11/2022 14:50:59 SINUS RHYTHM NOW PRESENT Electronically Signed On 04-11-2022 18:53:57 CDT by Zuleyka Salmon M.D.
--- NOTE | 2022-04-11 16:56 | PC.NURSE ---
PT NOTED TO BE IN SINUS RHYTHM BEFORE DILTIAZEM DRIP STARTED. NEW EKG OBTAINED AND GIVEN TO DR. LANGE.
[2022-04-11] MEDS: ENOXAPARIN 80 MG/0.8 ML SYRINGE 70 MG SUB-Q (17:23)
--- NOTE | 2022-04-11 18:20 | ADMGEN ---
This patient, Venessa Gifford, was admitted to IMU Room 200-01. Patient/family oriented to hospital policies and general routines including ID bracelet, bed and alarms, visiting hours, pain management, procedures, bathroom and other care routines, personal items, smoking policy, room service/diet, and visiting hours. Information on how to activate the Rapid Response Team has been discussed. Patient/Family are encouraged to report perceived risks to care and to ask questions if they do not understand what they are told or what they should do.
[2022-04-11 19:55] LABS: Troponin I < 0.012 ng/mL (0.000-0.034)
[2022-04-11 21:24] LABS: Troponin I < 0.012 ng/mL (0.000-0.034)
--- NOTE | 2022-04-11 22:36 | PM.IMHP ---
H&P: HPI History of Present Illness Date/Time: 04/11/22 22:36 Chief Complaint: Chest pain and palpitation Narrative: this is an 82-year-old female patient who is fairly healthy. The patient only has a diagnosis osteoporosis, overactive bladder and restless legs syndrome. 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 The patient finally laid down around noon to taken half because she has to work tonight. The patient stated that she felt her heart racing and she had some pain under her left breast and left shoulder. She denied any shortness of breath or lightheadedness. The patient denies any fever chills. No nausea vomiting or diarrhea. The patient stated she has not had any heart disease or had anything like this in the past. The patient stated that her heart had beating really fast. Patient's heart rate is typically in the 50s and 60s. Patient's heart rate was noted to be up to 155 and she was found to be in AFib with Rvr. The patient was given IV diltiazem, IV fluids and subcu Lovenox. The patient's heart rate still remained fast and the patient was going to be hooked up to [facility] [place] when they noticed that she had cardioverted in her heart rate was in the 50s. the patient stated that her chest pain was relieved once her heart rate went back to normal. Review of Systems Review of Systems: See HPI All systems reviewed & are unremarkable except as noted in HPI and below Constitutional: Constitutional: Reports as per HPI and Reports no additional constitutional complaints Eyes: Eyes: Reports as per HPI and Reports no additional eye complaints ENT: Reports system reviewed and no additional complaints, except as documented and Reports Normal hearing present Cardiovascular: Cardiovascular: Reports no additional cardiovascular complaints Respiratory: Respiratory: Reports no additional respiratory complaints and Reports no additional respiratory complaints Gastrointestinal: Gastrointestinal: Reports as per HPI and Reports no additional gastrointestinal complaints Musculoskeletal: Musculoskeletal: Reports no additional musculoskeletal complaints Integumentary/Breasts: Skin/Breast: Reports system reviewed and no additional complaints, except as docu and Reports as per HPI Neurologic: Reports system reviewed and no additional complaints, except as documented, Reports as per HPI and Reports Normal hearing present Psychiatric: Psychiatric: Reports no additional psychiatric complaints and Reports as per HPI Endocrine: Endocrine: Reports no additional endocrine complaints Hematologic/Lymphatic: Hematologic/Lymphatic: Reports no additional hematologic/lymphatic complaints Allergic/Immunologic: Allergic/Immunologic: Reports no additional allergic/immunologic complaints [facility] Past Medical History Medical History (Updated 04/12/22 @ 00:31 by Glendy Monahan NP) Abnormal TSH Arthritis B12 deficiency Close exposure to COVID-19 virus COVID-19 Dysphagia GERD without esophagitis Glucose intolerance Hyperlipidemia Iron deficiency Memory loss Nasal fracture Nocturnal leg cramps Overactive bladder Restless leg syndrome Screening for breast cancer Screening for lipid disorders Trochanteric bursitis, left hip Trochanteric bursitis, right hip UTI (urinary tract infection) Vitamin D deficiency, unspecified Xerophthalmia Surgical History Surgical History (Updated 04/12/22 @ 00:23 by Glendy Monahan NP) H/O partial thyroidectomy H/O vaginal hysterectomy History of colostomy reversal 2017 the patient stated that she had of colonoscopy and her bowel was perforated. The patient stated that she has had multiple surgeries to fix the perforation. The patient had a colostomy for a while and then had a reversed. Family History Family History Mother Family history of cardiovascular disease Sibling
[2022-04-11] MEDS: cycloSPORINE 0.4 ML OPHTH SOLUTION 2 DROP EACH EYE (22:51)
[2022-04-11] MEDS: FERROUS SULFATE 324 MG TABLET PO (22:52)
[2022-04-11] MEDS: FLUTICASONE PROPIONATE 0.05% NA SPR 16 GM BTL (*BKC) 1 SPRAY NASAL (22:52)
[2022-04-11] MEDS: PANTOPRAZOLE SOD SESQUIHYDRATE 20 MG TAB PO (22:53)
[2022-04-11] MEDS: PRAMIPEXOLE 0.5 MG TABLET 1.5 MG PO (22:53)
[2022-04-11] MEDS: MELATONIN 5 MG TABLET PO (22:53)
[2022-04-11] MEDS: MULTIVITAMINS THERAPEUTIC TAB (*BKC) 1 TABLET PO (22:54)
[2022-04-11] MEDS: OPTI-GEN TAB 1 TABLET PO (22:54)
[2022-04-11] MEDS: TOLTERODINE TARTRATE LA 4 MG CAP.ER.24H PO (22:54)
[2022-04-12] VITALS (15 sets, daily range): BP systolic 118–142; BP diastolic 44–58; PULSE 48–59; RESP 12–20; TEMP 36.3–36.6; O2SAT 93–99
[2022-04-12 03:58] LABS: Alanine Aminotransferase 16 U/L (6-35); Albumin Level 3.7 g/dL (3.5-5.1); Alkaline Phosphatase 55 U/L (38-126); Anion Gap 6 mmol/L (8-16); Aspartate Amino Transferase 16 U/L (14-36); Bilirubin,Total 0.6 mg/dL (0.2-1.3); Blood Urea Nitrogen 14 mg/dL (7-17); Calcium 8.3 mg/dL (8.4-10.2); Carbon Dioxide 26 mmol/L (22-30); Chloride 107 mmol/L (98-107); Estimated CRCL calculation 53 ml/min; Estimated Glomerular Filt Rate > 60; Glucose 94 mg/dL (65-110); Magnesium 2.2 mg/dL (1.6-2.3); Phosphorus 4.7 mg/dL (2.5-4.5); Sodium 139 mmol/L (137-145)
[2022-04-12 04:00] LABS: Basophils Absolute Auto 0.1 K/mm3 (0.0-0.1); Eosinophils Absolute Auto 0.2 K/mm3 (0-0.3); Eosinophils Percent Auto 2.6 % (0-4.4); Hemoglobin 12.7 g/dL (12.0-15.0); Immature Granulocyte Absolute 0.02 K/mm3 (0.00-0.031); Immature Granulocyte Percent A 0.3 % (0-0.5); Lymphocytes Absolute Auto 1.47 K/mm3 (0.9-3.2); Lymphocytes Percent Auto 25.7 % (18.3-44.2); Mean Corpuscular HGB Conc 33.4 g/dl (32-36); Mean Corpuscular Hemoglobin 32.2 pg (26-34); Mean Corpuscular Volume 96.2 fl (80-100); Mean Platelet Volume 12.3 fl (7.4-10.4); Monocytes Absolute Auto 0.5 K/mm3 (0.1-0.6); Monocytes Percent Auto 9.1 % (2.6-8.5); Neutrophils Absolute Auto 3.5 K/mm3 (1.3-6.7); Neutrophils Percent Auto 61.3 % (45.5-73.1); Platelet Count Result 189 k/mm3 (150-375); Red Blood Count 3.95 M/mm3 (4.2-5.4); Red Cell Distribution Width 12.6 % (11.5-14.5); White Blood Count 5.7 K/mm3 (4.5-10.0)
[2022-04-12 04:46] LABS: Thyroid Stimulating Hormone Reflex 0.352 uIU/mL (0.465-4.68)
[2022-04-12 05:26] LABS: Free T4 Free Thyroxine Reflex 1.16 ng/dL (0.78-2.19)
[2022-04-12 06:08] LABS: Total Triiodothyronine (T3) 1.17 NG/ML (0.97-1.69)
[2022-04-12] MEDS: MULTIVITAMINS THERAPEUTIC TAB (*BKC) 1 TABLET PO (09:06)
[2022-04-12] MEDS: TOLTERODINE TARTRATE LA 4 MG CAP.ER.24H PO (09:06)
[2022-04-12] MEDS: cycloSPORINE 0.4 ML OPHTH SOLUTION 2 DROP EACH EYE ×2 (09:06→20:47)
[2022-04-12] MEDS: OPTI-GEN TAB 1 TABLET PO ×2 (09:06→17:59)
--- NOTE | 2022-04-12 09:06 | PM.CNCAR ---
Assessment and Plan Assessment and plan (1) Atrial fibrillation with RVR: Code(s): I48.91 - Unspecified atrial fibrillation Status: Acute Assessment and Plan: 1st episode of atrial fibrillation associated with RVR, and some anginal type chest discomfort in a previously healthy older lady. No ischemic EKG changes or troponin bump. No obvious etiology other than age. Patient may have some mild valve disease as she has a heart murmur which does not sound particularly pathologic. CT and chest x-ray both suggested cardiomegaly, but echo would be a better way to measure. Reviewed PAF in detail with patient and daughter. Sometimes easy to treat and episodes are few and far between, sometimes difficult to treat and therapy needs to be escalated. Reviewed risk of cardioembolic events and recommendation for anticoagulation. Patient has had a couple falls but overall appears to be a good candidate for anticoagulation. Reviewed risks and benefits. Will start Eliquis 2.5 mg b.i.d. and stop Lovenox. Add Cardizem CD 120 mg daily. Echo tomorrow Ambulate Probably discharge tomorrow after the echo Daughter was worried that the patient was over extending herself with her working at [employer] and [employer] and perhaps that had brought on AFib. I do not think there is any correlation; the patient enjoys being busy and I encouraged her to do what made her feel good and was rewarding. (2) Falls: Code(s): W19.XXXA - Unspecified fall, initial encounter Status: Acute Assessment and Plan: Two mechanical falls over the past 2 or 3 years. Reviewed fall precautions History of Present Illness History of Present Illness Consult date/time: 04/12/22 09:06 Reason For Visit: Atrial Fib with RVR Narrative: Venessa Gifford is an 82-year-old female whom I was asked to see at the request [employer] Glendy Monahan or my advice and opinion regarding her new onset AFib, in consultation. Ms. Gifford is a healthy octogenarian who has no history of heart problems. She occasionally will notice a very brief palpitation. She woke from a nap yesterday feeling rapid heartbeats and palpitations and after an hour had an aching discomfort of the left lateral chest and left scapular area. Her daughter brought her to the emergency room she was found to be in AFib RVR, heart rate 155. She was given a dose of IV Cardizem and converted to sinus rhythm. No hypertension, diabetes, heart murmurs. Has been treated for some thyroid disease but not on medications for many many years. Active, able to exercise on the treadmill intake walks with no chest discomfort or shortness of breath. No alcohol. Drinks 3-4 cups of coffee a day. 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 Review of Systems Constitutional: Constitutional: Denies fever(s) Eyes: Eyes: Reports blurry vision (Wears glasses) ENT: Denies epistaxis Cardiovascular: Cardiovascular: Denies chest pain, Denies pedal edema, Denies lightheadedness, Reports palpitations and Denies dyspnea Respiratory: Respiratory: Denies chest congestion and Denies dyspnea Gastrointestinal: Gastrointestinal: Denies abdominal pain and Denies hematochezia Comments: No ulcers or bleeding Musculoskeletal: Musculoskeletal: Reports no additional musculoskeletal complaints Comments: Has had 2 falls in the last few years, once slipping on ice (rib fracture) and once missed a step and landed on her back going down stairs. No dizziness. Integumentary/Breasts: Skin/Breast: Reports system reviewed and no additional complaints, except as docu Neurologic: Reports system reviewed and no additional complaints, except as documented, Denies behavioral changes and Denies confusion Psychiatric: Psychiatric: Denies behavioral changes and Denies confusion [facility] Past Medical History Medical History (Updated 04/12/22 @ 10:53 by Zuleyka Salmon MD) Abnormal TS
[2022-04-12] MEDS: ENOXAPARIN 80 MG/0.8 ML SYRINGE 70 MG SUB-Q (09:07)
[2022-04-12] MEDS: traMADol HCL (*CRX) 50 MG TABLET PO (09:09)
--- NOTE | 2022-04-12 09:42 | PM.IMPN ---
Progress Note: A&P Assessment and Plan (1) Atrial fibrillation with RVR: Code(s): I48.91 - Unspecified atrial fibrillation Status: Acute Assessment and Plan: New onset AFib with RVR. Given cardizem IV & converted sinus bradycardia. Chadsvasc 3. 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 Free T4 normal, which makes subclinical hyperthyroidism more likely. Hx of thyroid nodule at age 21, which required surgery but the patient is unsure if she had a partial or total thyroidectomy. Reports having been on levothyroxine for about 15-20 years but then one of her doctors told her she no longer needed to take thyroid medication. -Thyroid US (3) Nocturnal leg cramps: Code(s): G47.62 - Sleep related leg cramps Status: Acute Assessment and Plan: -Continue with pramipexole (4) Vitamin D deficiency, unspecified: Code(s): E55.9 - Vitamin D deficiency, unspecified Status: Acute Assessment and Plan: -Continue with vitamin (5) Overactive bladder: Code(s): N32.81 - Overactive bladder Status: Acute Assessment and Plan: -Continue with Ditropan (6) GERD without esophagitis: Code(s): K21.9 - Gastro-esophageal reflux disease without esophagitis Status: Acute Assessment and Plan: -Continue with pantoprazole Subjective Date/time seen: 04/12/22 08:42 Patient denies chest pain, shortness of breath, palpitations, arm pain. Review of Systems Cardiovascular: Cardiovascular: Denies chest pain and Denies palpitations Exam Narrative: GENERAL: NAD, cooperative HEENT: Normocephalic, atraumatic, anicteric, nares clear, oropharynx moist and clear, dentition normal NECK: Supple CV: Normal S1, S2, RRR, No MRG RESP: CTAB, Normal work of breathing. EXTREMITIES: Warm and well perfused, no clubbing, cyanosis, or edema. SKIN: warm, dry and intact. NEURO: CN 2-12 grossly intact. Objective Data Vital Signs Vital Signs: Vital Signs - 24 hr 04/11/22 16:17 04/11/22 16:17 04/11/22 16:45 Temperature Pulse Rate 106 H 87 63 Respiratory Rate 17 17 18 Blood Pressure 100/72 100/72 115/78 Pulse Oximetry 96 96 97 Oxygen Delivery 04/11/22 17:00 04/11/22 17:01 04/11/22 17:15 Temperature Pulse Rate 63 61 69 Respiratory Rate 14 19 15 Blood Pressure 108/57 L Pulse Oximetry 93 Oxygen Delivery 04/11/22 17:30 04/11/22 17:31 04/11/22 18:27 Temperature 36.5 C Pulse Rate 60 63 68 Respiratory Rate 17 17 16 Blood Pressure 127/61 136/55 L Pulse Oximetry 96 96 97 Oxygen Delivery 04/11/22 18:45 04/11/22 20:00 04/11/22 20:00 Temperature 36.3 C L Pulse Rate 65 65 Respiratory Rate 16 16 Blood Pressure 143/81 H Pulse Oximetry 100 100 Oxygen Delivery Room Air Room Air 04/11/22 20:00 04/11/22 22:00 04/11/22 23:22 Temperature 36.3 C L Pulse Rate 61 61 54 L Respiratory Rate 18 Blood Pressure 133/45 L Pulse Oximetry 100 Oxygen Delivery 04/11/22 23:48 04/12/22 00:00 04/12/22 01:32 Temperature Pulse Rate 54 L 50 L 49 L Respiratory Rate 18 Blood Pressure Pulse Oximetry 100 Oxygen Delivery Room Air 04/12/22 04:00 04/12/22 03:52 04/12/22 04:00 Temperature 36.4 C Pulse Rate 49 L 49 L 54 L Respiratory Rate 16 16 Blood Pressure 118/44 L Pulse Oximetry 99 99 Oxygen Delivery Room Air 04/12/22 05:23 04/12/22 08:00 04/12/22 08:00 Temperature 36.4 C L Pulse Rate 53 L 52 L Respiratory Rate 12 Blood Pressure 132/58 L Pulse Oximetry 96 Oxygen Delivery Room Air 04/12/22 08:00 04/12/22 10:00 04/12/22 12:00 Temperature Pulse Rate 56 L 59 L 53 L Re
[2022-04-12] MEDS: MELATONIN 5 MG TABLET PO (20:47)
[2022-04-12] MEDS: PRAMIPEXOLE 0.5 MG TABLET 1.5 MG PO (20:47)
[2022-04-12] MEDS: PANTOPRAZOLE SOD SESQUIHYDRATE 20 MG TAB PO (20:47)
[2022-04-12] MEDS: APIXABAN 2.5 MG TABLET PO (20:47)
[2022-04-12] MEDS: FERROUS SULFATE 324 MG TABLET PO (20:47)
[2022-04-13] VITALS (8 sets, daily range): BP systolic 118–130; BP diastolic 45–73; PULSE 48–64; RESP 16–18; TEMP 35.9–36.4; O2SAT 95–98
--- NOTE | 2022-04-13 | ECHO_ITS ---
Patient Info Name: Venessa Gifford Age: 82 years : 1940 Gender: Female Ht: 64 in Wt: 152 lbs BSA: 1.78 m2 HR: 46 bpm BP: 130 / 45 mmHg Heart Rhythm: Sinus Rhythm, Bradycardia Technical Quality: Good Exam Date: 04/13/2022 4:15 PM Exam Location: [facility] Pulmonary Exam Room: 342 Patient Status: Inpatient Admit Date: 04/11/2022 Staff Ordering Physician: Glendy Monahan NP Fixture Maker: Liberty Fountain RDCS Attending Provider: Ramirez Childers MD Referring Physician: Taniya HUMPHRIES; Exam Type: CA echo doppler color flow Study Info Indications - new onset afib Complete two-dimensional, color flow and Doppler transthoracic echocardiogram is performed. Summary 1. Complete two-dimensional, color flow and Doppler transthoracic echocardiogram is performed. 2. Left ventricular chamber dimension is normal. 3. Left ventricular systolic function is normal, estimated at 60-65%. 4. There is no increased left ventricular wall thickness. 5. The left ventricular diastolic function is grade I diastolic dysfunction. 6. There is no aortic valve stenosis. 7. There is trace mitral valve regurgitation. 8. There is trace tricuspid valve regurgitation. 9. No pulmonary hypertension, estimated pulmonary arterial systolic pressure is 26 mmHg. Left Ventricle Left ventricular chamber dimension is normal. Left ventricular systolic function is normal, estimated at 60-65%. There is no increased left ventricular wall thickness. The left ventricular diastolic function is grade I diastolic dysfunction. Right Ventricle Right ventricular chamber dimension is normal. Right ventricular systolic function is normal. Left Atria Left atrial chamber dimension is normal. Right Atria Right atrial chamber dimension is normal. Aortic Valve The aortic valve is trileaflet. There is mild aortic valve sclerosis. There is no aortic valve stenosis. There is trace aortic valve regurgitation. Pulmonic Valve The pulmonic valve is not well visualized. Mitral Valve The mitral valve has normal leaflets. There is trace mitral valve regurgitation. The mitral valve annulus is mildly calcified. Tricuspid Valve The tricuspid valve leaflets are normal. There is trace tricuspid valve regurgitation. No pulmonary hypertension, estimated pulmonary arterial systolic pressure is 26 mmHg. Pericardium/Pleural The pericardium appears normal. There is trivial pericardial effusion. Inferior Vena Cava Normal inferior vena cava with >50% collapse upon inspiration consistent with normal right atrial pressure, 5 mmHg. Aorta The aortic root size at the sinus of Valsalva is normal. There is mild aortic atherosclerosis. Left Ventricular Outflow Tract Name Value Normal LVOT 2D LVOT Diameter 2.0 cm LVOT Doppler LVOT Peak Gradient 4 mmHg LVOT Mean Gradient 2 mmHg LVOT VTI 26 cm LVOT VTI/AV VTI Ratio 0.9 LVOT Stroke Volume 79 ml LVOT CO
[2022-04-13 05:19] LABS: Alanine Aminotransferase 14 U/L (6-35); Albumin Level 3.9 g/dL (3.5-5.1); Alkaline Phosphatase 52 U/L (38-126); Anion Gap 12 mmol/L (8-16); Aspartate Amino Transferase 15 U/L (14-36); Bilirubin,Total 0.6 mg/dL (0.2-1.3); Blood Urea Nitrogen 14 mg/dL (7-17); Calcium 8.7 mg/dL (8.4-10.2); Carbon Dioxide 28 mmol/L (22-30); Chloride 100 mmol/L (98-107); Estimated CRCL calculation 41 ml/min; Estimated Glomerular Filt Rate > 60; Glucose 88 mg/dL (65-110); Potassium 3.9 mmol/L (3.4-5.0); Sodium 140 mmol/L (137-145)
[2022-04-13] MEDS: APIXABAN 2.5 MG TABLET PO (08:53)
[2022-04-13] MEDS: TOLTERODINE TARTRATE LA 4 MG CAP.ER.24H PO (08:53)
[2022-04-13] MEDS: MULTIVITAMINS THERAPEUTIC TAB (*BKC) 1 TABLET PO (08:53)
[2022-04-13] MEDS: CHOLECALCIFEROL 1,000 UNITS TABLET 1000 UNITS PO (08:53)
[2022-04-13] MEDS: OPTI-GEN TAB 1 TABLET PO ×2 (08:53→17:51)
--- NOTE | 2022-04-13 10:12 | PC.NURSE ---
Marilee Cramer NP notified of patient's heart rate in the 40's. Pt asymptomatic, but Cardizem was held this AM d/t parameters of hold if HR < 50 . Marilee Cramer NP will come assess patient and change orders as needed
[2022-04-13] MEDS: cycloSPORINE 0.4 ML OPHTH SOLUTION 2 DROP EACH EYE (10:26)
--- NOTE | 2022-04-13 10:33 | PM.PNCARD ---
Progress Note: A&P Assessment and Plan (1) Atrial fibrillation with RVR: Code(s): I48.91 - Unspecified atrial fibrillation Status: Acute Assessment and Plan: 1st episode of atrial fibrillation associated with RVR, and some anginal type chest discomfort in a previously healthy older lady. No ischemic EKG changes or troponin bump. No obvious etiology other than age. Remains in sinus rhythm now. Had some mild bradycardia, HR in the mid 40's intermittently on Cardizem CD 120, held this morning. Can discharge either with half a tablet of long acting diltiazem or 30mg short acting diltiazem b.i.d. Echo is pending Ambulate Probably discharge today after the echo (2) Falls: Code(s): W19.XXXA - Unspecified fall, initial encounter Status: Acute Assessment and Plan: Two mechanical falls over the past 2 or 3 years. fall precautions Subjective Date/time seen: 04/13/22 10:33 Cardiology follow up for atrial fibrillation Interval history: She's feeling well today, no complaints. Remains in sinus rhythm. Some mild bradycardia noted on telemetry, asymptomatic. Review of Systems Constitutional: Constitutional: Denies fever(s) Eyes: Eyes: Reports blurry vision (Wears glasses) ENT: Denies epistaxis Cardiovascular: Cardiovascular: Denies chest pain, Denies pedal edema, Denies lightheadedness, Reports palpitations and Denies dyspnea Respiratory: Respiratory: Denies chest congestion and Denies dyspnea Gastrointestinal: Gastrointestinal: Denies abdominal pain and Denies hematochezia Musculoskeletal: Musculoskeletal: Reports no additional musculoskeletal complaints Integumentary/Breasts: Skin/Breast: Reports system reviewed and no additional complaints, except as docu Neurologic: Reports system reviewed and no additional complaints, except as documented, Denies behavioral changes and Denies confusion Psychiatric: Psychiatric: Denies behavioral changes and Denies confusion Endocrine: Endocrine: Reports palpitations Exam Const: General: cooperative, healthy appearing and comfortable; No confusion Orientation/consciousness: oriented to person, patient oriented x3 and No confusion Other: Very pleasant older lady sitting upright in bed in no distress HENMT: Mouth: Yes moist mucous membranes Eyes: EOM: EOMs intact bilaterally Neck: Neck: supple and no JVD Thyroid: thyroid normal Carotids: no bruits Resp: Effort & Inspection: normal respiratory effort Auscultation: clear to auscultation bilaterally Cardio: Rate: regular rate Rhythm: regular rhythm Heart sounds: Murmur heart sound present (1-2/6 NAVJOT at the left sternal border and apex) GI: Inspection: normal to inspection Skin: General skin exam: normal color and no rashes or lesions noted Neuro: General: oriented to person, patient oriented x3 and No confusion Extrem: Right lower extremity: no edema Left lower extremity: no edema Other: Intact pedal pulses Psych: Appearance: grossly normal Mental Status: mental status grossly normal Objective Data Vital Signs Vital Signs: Vital Signs - 24 hr 04/12/22 12:00 04/12/22 13:17 04/12/22 14:00 Temperature Pulse Rate 53 L 56 L Respiratory Rate Blood Pressure Pulse Oximetry 93 Oxygen Delivery Room Air 04/12/22 16:00 04/12/22 16:00 04/12/22 18:00 Temperature 36.6 C Pulse Rate 52 L 50 L 59 L Respiratory Rate 20 Blood Pressure 142/55 H Pulse Oximetry 97 Oxygen Delivery 04/12/22 20:04 04/12/22 20:00 04/12/22 20:00 Temperature 36.3 C L Pulse Rate 59 L 51 L Respiratory Rate 20 Blood Pressure 126/50 L Pulse Oximetry 98 Oxygen Delivery Room Air 04/12/22 22:00 04/13/22 00:00 04/13/22 02:00 Temperature Pulse Rate 48 L 50 L 48 L Respiratory Rate Blood Pressure Pulse Oximetry Oxygen Delivery 04/13/22 00:00 04/13/22 04:00 04/13/22 08:02 Temperature 36.1 C L 35.9 C L Pulse Rate 50 L 64
--- NOTE | 2022-04-13 11:09 | PC.NURSE ---
This patient, Venessa Gifford, was transferred to [ [facility]] on 04/13/22 at 1109. Personal belongings sent with patient. Report given to [ STEPHEN Koenig @ 1100]. Appropriate documentation sent with patient.
--- NOTE | 2022-04-13 17:35 | PM.DS ---
DS: Admitting Diagnosis Discharge Date 04/13/22 Admitting Diagnosis Atrial fibrillation with RVR DS: Discharge Diagnosis Discharge Diagnosis (1) Atrial fibrillation with RVR: Code(s): I48.91 - Unspecified atrial fibrillation Status: Acute Assessment and Plan: New onset AFib with RVR. Given cardizem IV & converted sinus bradycardia. Chadsvasc 3. Echo with EF 60-65% with grade I diastolic dysfunction. Will continue apixaban for discharge. 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 Free T4 normal, which makes subclinical hyperthyroidism more likely. Hx of thyroid nodule at age 21, which required surgery but the patient is unsure if she had a partial or total thyroidectomy. Reports having been on levothyroxine for about 15-20 years but then one of her doctors told her she no longer needed to take thyroid medication. Thyroid ultrasound shows thyroid is filled with nodules. Discussed results with the patient. Advised her to follow up outpatient as she will need a thyroid uptake scan to be ordered by her primary care physician. Patient verbalized understanding of the plan. (3) Nocturnal leg cramps: Code(s): G47.62 - Sleep related leg cramps Status: Acute Assessment and Plan: -Continue with pramipexole (4) Vitamin D deficiency, unspecified: Code(s): E55.9 - Vitamin D deficiency, unspecified Status: Acute Assessment and Plan: -Continue with vitamin (5) Overactive bladder: Code(s): N32.81 - Overactive bladder Status: Acute Assessment and Plan: -Continue with Ditropan (6) GERD without esophagitis: Code(s): K21.9 - Gastro-esophageal reflux disease without esophagitis Status: Acute Assessment and Plan: -Continue with pantoprazole DS: Summary Hospital Course Reason for hospitalization: Atrial fibrillation with RVR Hospital Course: 82F with a past medical history of restless leg syndrome, gastroesophageal reflux disease, hyperlipidemia, iron deficiency and osteoporosis who presented to the emergency department for palpitations and chest pain. Patient was found to have new onset atrial fibrillation with RVR and was given cardizem IV. She converted back to sinus rhythm. She reported her baseline heart rate was in the 50s. Cardiology was consulted and started the patient on cardizem and apixaban. Patient had an echocardiogram that showed EF 60-65% with grade I diastolic dysfunction. Patient was noted to have a low TSH and normal Free T3& T4. Patient had hx of thyroid resection in the past but was unsure if it was total, subtotal or just partial. Thyroid ultrasound showed thyroid gland with many nodules. Patient was not taking thyroid medication. Recommendation was for thyroid uptake scan. This was discussed with the patient and the patient was advised to follow up with her primary care physician to get the thyroid uptake scan ordered. Patient discharged to home with cardizem 30 mg BID and apixaban 2.5 mg BID. Time Spent with Patient Time attestation: Total time spent providing and/or coordinating discharge services: Exam Narrative: GENERAL: NAD, cooperative HEENT: Normocephalic, atraumatic, anicteric, nares clear, oropharynx moist and clear, dentition normal NECK: Supple CV: Normal S1, S2, RRR, No MRG RESP: CTAB, Normal work of breathing. EXTREMITIES: Warm and well perfused, no clubbing, cyanosis, or edema. SKIN: warm, dry and intact. NEURO: CN 2-12 grossly intact. DS: Data Data Completed and Pending Labs on day of discharge: Labs from last 24 hours 04/13/22 04:00 Sodium 140 Potassium 3.9 Chlorid
== END 2022-04-13 19:03 | disposition home or self-care (01) ==
LOC: ANHED 15:14 → ANHIMU 18:42 → ANH3MED 04-13 17:59 → ANHIMU 04-14 14:43
PROVIDERS: Nurse Practitioner; Admitting Provider Chiropractor; Emergency Provider Emergency Medicine; PCP Internal Medicine; Visit Provider Family Medicine
DX: R07.9 Chest pain, unspecified (principal); M25.512 Pain in left shoulder; I48.91 Unspecified atrial fibrillation; W19.XXXA Unspecified fall, initial encounter; G47.62 Sleep related leg cramps; R79.89 Other specified abnormal findings of blood chemistry; E53.8 Deficiency of other specified B group vitamins; K21.9 Gastro-esophageal reflux disease without esophagitis; E78.5 Hyperlipidemia, unspecified; E55.9 Vitamin D deficiency, unspecified; M81.0 Age-related osteoporosis without current pathological fracture; N32.81 Overactive bladder
CPT/HCPCS: 36415; 71045; 76536; 80053; 81003; 83735; 84100; 84439; 84443; 84480; 84484; 85025; 85610; 85730; 93005; 93306; 96361; 96372; 96374; 99285; A9270; G0378; J1650; J7030

== ENCOUNTER 2022-05-11 13:27 | Outpatient (CLI) | payer MEDICARE, OTHER, SELFPAY ==
--- NOTE | ~2022-05-11 | NM_ITS ---
EXAMINATION: NM thyroid scan w uptake DATE: 05/12/2022 14:13 INDICATION: Thyrotoxicosis. COMPARISON: Thyroid ultrasound 04/13/2022 TECHNIQUE: 0.356 mCi I-123 was administered orally. Scintigraphic images of the thyroid gland were o btained at 24 hours. Thyroid uptake was calculated by the technologist. FINDINGS: The thyroid uptake is 42% (normal 10-30%), with the right lobe measuring 19% uptake and the left 24%. There is no focal area of decreased or increased activity to suggest hypofunctioning or hyperfunctio arelis nodule. IMPRESSION: 1. Increased 24-hour iodine uptake, consistent with Graves' disease. Reviewed, dictated and finalized at location A. [facility] [employer]NAG[employer]
== END 2022-05-11 13:28 | disposition home or self-care (01) ==
LOC: ANHIMG 13:29
PROVIDERS: PCP Internal Medicine; Visit Provider Internal Medicine
DX: E05.90 Thyrotoxicosis, unspecified without thyrotoxic crisis or storm (principal)
CPT/HCPCS: 78014; A9516

== ENCOUNTER 2022-05-23 10:19 | Emergency (ER) | payer MEDICARE, OTHER, SELFPAY ==
[2022-05-23] VITALS (20 sets, daily range): BP systolic 92–126; BP diastolic 50–71; PULSE 44–90; RESP 11–17; TEMP 36.2; O2SAT 95–100
--- NOTE | ~2022-05-23 | XR_ITS ---
XR chest 2V 05/23/2022 11:03 Indication: Rapid heart rate Procedure: PA and lateral views of the chest Comparison: 04/11/2022 Findings: There is chronic lingular atelectasis/scarring. There are healed right seventh and eighth r ib fractures with callus formation. No focal air space disease, pulmonary edema, pleural effusion or suspected pneumothorax. Heart size is normal. Impression: 1: No acute cardiopulmonary disease. Reviewed, dictated and finalized at location A. G[facility] WELDING Impression: 1: No acute cardiopulmonary disease.
--- NOTE | 2022-05-23 10:33 | ECG_ITS ---
Measurements Intervals [place] Rate: 117 P: ME: 0 QRS: 1 QRSD: 86 T: -3 QT: 238 QTc: 332 Interpretive Statements ATRIAL FIBRILLATION WITH RAPID VENTRICULAR RESPONSE VOLTAGE CRITERIA FOR LVH NONSPECIFIC ST & T-WAVE ABNORMALITY ABNORMAL ECG COMPARED TO ECG 04/11/2022 16:45:57 ATRIAL FIBRILLATION NOW PRESENT LEFT VENTRICULAR HYPERTROPHY NOW PRESENT T-WAVE ABNORMALITY NOW PRESENT Electronically Signed On 05-23-2022 14:08:56 COLLEGE OR [employer]IVERSITY BUSINESS MANAGER by Nelson May M.D.
[2022-05-23 10:42] LABS: Basophils Percent Auto 0.8 % (0.2-1.2); Eosinophils Absolute Auto 0.2 K/mm3 (0-0.3); Eosinophils Percent Auto 2.9 % (0-4.4); Hematocrit 43.3 % (37.0-47.0); Hemoglobin 14.3 g/dL (12.0-15.0); Immature Granulocyte Absolute 0.01 K/mm3 (0.00-0.031); Immature Granulocyte Percent A 0.2 % (0-0.5); Lymphocytes Absolute Auto 1.15 K/mm3 (0.9-3.2); Mean Corpuscular Hemoglobin 32.4 pg (26-34); Mean Platelet Volume 11.8 fl (7.4-10.4); Monocytes Absolute Auto 0.5 K/mm3 (0.1-0.6); Monocytes Percent Auto 9.8 % (2.6-8.5); Neutrophils Absolute Auto 3.4 K/mm3 (1.3-6.7); Neutrophils Percent Auto 64.3 % (45.5-73.1); Platelet Count Result 189 k/mm3 (150-375); Red Blood Count 4.42 M/mm3 (4.2-5.4); White Blood Count 5.2 K/mm3 (4.5-10.0)
[2022-05-23 10:51] LABS: INR 0.9
[2022-05-23 10:53] LABS: Alanine Aminotransferase 19 U/L (6-35); Albumin Level 4.5 g/dL (3.5-5.1); Alkaline Phosphatase 88 U/L (38-126); Anion Gap 8 mmol/L (8-16); Aspartate Amino Transferase 20 U/L (14-36); Bilirubin,Total 0.4 mg/dL (0.2-1.3); Blood Urea Nitrogen 10 mg/dL (7-17); Calcium 8.3 mg/dL (8.4-10.2); Carbon Dioxide 26 mmol/L (22-30); Chloride 107 mmol/L (98-107); Estimated Glomerular Filt Rate > 60; Glucose 117 mg/dL (65-110); Lipase 58 U/L (23-300); Potassium 3.4 mmol/L (3.4-5.0); Sodium 141 mmol/L (137-145)
[2022-05-23 11:04] LABS: Troponin I < 0.012 ng/mL (0.000-0.034)
[2022-05-23] MEDS: ASPIRIN 81 MG CHEWABLE TABLET 324 MG PO (12:18)
--- NOTE | 2022-05-23 13:17 | ECG_ITS ---
Measurements Intervals [place] Rate: 46 P: 43 ME: 210 QRS: 9 QRSD: 88 T: 40 QT: 436 QTc: 381 Interpretive Statements SINUS BRADYCARDIA WITH FIRST DEGREE AV BLOCK BORDERLINE ECG COMPARED TO ECG 05/23/2022 10:28:35 SINUS BRADYCARDIA HAS REPLACED ATRIAL FIBRILLATION FIRST DEGREE AV BLOCK NOW PRESENT Electronically Signed On 05-23-2022 14:14:08 LOGGING TRUCK DRIVER by Nelson May M.D.
--- NOTE | 2022-05-23 13:29 | ED.ARRPALP ---
HPI - Arrhythmia/Palpitations General Chief Complaint: Arrhythmia/Palpitations Stated Complaint: irregular heartbeat Time Seen by Provider: 05/23/22 12:45 History of Present Illness HPI narrative: 82-year-old female history of paroxysmal atrial fibrillation presenting to the emergency department for evaluation of rapid heart rate. Patient states on April 11 she was diagnosed with A. fib and at that time she was started on a 1 month prescription of Eliquis and Cardizem. Patient reports she had been told by her mobile designer that she may not need the medications. Patient's primary care physician did reorder the medications around but due to the patient being asymptomatic she did not start the medications. Patient states she does drink a lot of caffeine and does work nights. Patient was working last night and she was going to bed this morning at 9 AM when she had onset of rapid heart rate. Patient's daughter did go fill the Eliquis and Cardizem and patient took those at approximately 10 AM. Upon arrival to the emergency department patient's heart rate was A. fib with RVR. On initial evaluation patient states that she feels her heart rate is improved. Patient did have some chest pain into her left armpit with an she was in the A. fib but denies any current chest pain now. Patient does have follow-up with cardiology on 01 June. Related Data Home Medications Medication Instructions Recorded Confirmed multivitamin 1 tablet PO DAILY 07/10/19 04/21/22 cyclosporine 0.05 % eye drops in a 2 drp ophthalmic (eye) Q12H 07/12/19 04/21/22 dropperette (Restasis) tolterodine 4 mg capsule,extended 4 mg PO DAILY 08/22/21 04/21/22 release 24 hr (Detrol LA) cholecalciferol (vitamin D3) 25 25 mcg PO .COMPLEX 01/28/22 04/21/22 mcg (1,000 unit) capsule calcium-vitamin D3-vitamin K 500 1 tablet PO DAILY 04/11/22 04/21/22 mg-200 unit-40 mcg chewable tablet ferrous sulfate 325 mg (65 mg 325 mg PO HS 04/11/22 04/21/22 iron) tablet (FeroSul) fluticasone propionate 50 1 spray intranasal HS 04/11/22 04/21/22 mcg/actuation nasal spray,suspension pantoprazole 20 mg tablet,delayed 20 mg PO HS 04/11/22 04/21/22 release pramipexole 1.5 mg tablet 1.5 mg PO HS 04/11/22 04/21/22 vit C 250 mg-vit E 90 mg-zinc 40 1 tablet PO BID 04/11/22 04/21/22 mg-copper 1 [id number] capsule (PreserVision AREDS-2) Allergies Allergy/AdvReac Type Severity Reaction Status Date / Time No Known Allergies Allergy Verified 05/18/22 09:41 Review of Systems Review of Systems: CONSTITUTIONAL: Denies fever, chills, or sweats. EYES: Denies visual changes, redness, or discharge. ENT: Denies rhinorrhea, congestion, sore throat, or otalgia. CARDIOVASCULAR: See HPI RESPIRATORY: Denies cough or dyspnea. GASTROINTESTINAL: Denies abdominal pain, nausea, vomiting, or diarrhea. GENITOURINARY: Denies dysuria or hematuria. SKIN: Denies rash or itching. MUSCULOSKELETAL: Denies back pain, joint pain, or myalgia. NEUROLOGIC: Denies headache, numbness, or weakness. [facility] Past Medical History Medical History (Updated 05/23/22 @ 14:29 by Mark Green MD) Abnormal TSH Arthritis B12 deficiency Chronic SI joint pain Close exposure to COVID-19 virus COVID-19 Dys[place] GERD without esophagitis Glucose intolerance Hyperlipidemia Iron deficiency Memory loss Nasal fracture Nocturnal leg cramps Overactive bladder Restless leg syndrome Screening for breast cancer Screening for lipid disorders Spinal stenosis of lumbar region with radiculopathy Trochanteric bursitis, left hip Trochanteric bursitis, right hip UTI (urinary tract infection) Vitamin D deficiency, unspecified Xerophthalmia Surgical History Surgical History H/O partial thyroidectomy H/O vaginal hysterectomy History of colostomy reversal 2017 the patient stated that she had of colonoscopy and her bowel was perforated. T
[2022-05-23 14:01] LABS: Troponin I < 0.012 ng/mL (0.000-0.034)
== END 2022-05-23 14:40 | disposition home or self-care (01) ==
PROVIDERS: Emergency Medicine; Emergency Provider Emergency Medicine; PCP Internal Medicine
DX: I48.0 Paroxysmal atrial fibrillation (principal); E78.5 Hyperlipidemia, unspecified; E61.1 Iron deficiency; N32.81 Overactive bladder; G25.81 Restless legs syndrome; E53.8 Deficiency of other specified B group vitamins; E55.9 Vitamin D deficiency, unspecified; K21.9 Gastro-esophageal reflux disease without esophagitis; M19.90 Unspecified osteoarthritis, unspecified site; Z86.16 Personal history of COVID-19; Z87.440 Personal history of urinary (tract) infections; Z79.01 Long term (current) use of anticoagulants; R94.31 Abnormal electrocardiogram [ECG] [EKG]; R00.1 Bradycardia, unspecified; I44.0 Atrioventricular block, first degree; I51.7 Cardiomegaly
CPT/HCPCS: 36415; 71046; 80053; 83690; 84484; 85025; 85610; 85730; 93005; 99284; A9270

== ENCOUNTER → 2022-06-01 13:25 | Outpatient (CLI) | payer MEDICARE, OTHER, SELFPAY ==
--- NOTE | ~2022-06-01 | MR_ITS ---
EXAMINATION: MR lumbar spine wo con DATE: 06/01/2022 14:56 INDICATION: Evaluation for lumbar spine pain TECHNIQUE: Magnetic resonance imaging (MRI) of the lumbar spine was performed without intravenous con trast. Sequences included sagittal T2-weighted FSE, sagittal T2-weighted FS FSE, sagittal T1-weighted FSE, and axial T2-weighted FSE. COMPARISON: None FINDINGS: 5 degrees lumbar levocurvature. Sagittal alignment is normal. Vertebral body heights are normal. Nor mal marrow signal. Mild disc desiccation and mild disc height loss at L3-L4 and minimal disc height l oss at L2-L3 and L4-L5. The conus medullaris terminates at L1. There is normal signal in the caudal s josé cord. A millimeter T2 hyperintense hepatic cysts. Paravertebral soft tissues are unremarkable. The following disc levels are specifically discussed: T12-L1: Disc is minimally bulging. There is mild right and minimal left facet joint osteoarthritis. T here is no neural foraminal stenosis. There is no central canal stenosis. L1-L2: Disc is minimally bulging with superimposed annular fissure and small central disc protrusion. There is mild right and minimal left facet joint osteoarthritis. There is no neural foraminal stenos is. There is no central canal stenosis. L2-L3: Disc is minimally bulging. There is mild bilateral facet joint osteoarthritis. There is minima l bilateral neural foraminal stenosis. There is no central canal stenosis. L3-L4: Disc is mildly bulging. There is severe bilateral facet joint osteoarthritis. There is mild bi lateral neural foraminal stenosis. There is mild central canal stenosis. L4-L5: Disc is mildly bulging with left foraminal zone annular fissure. There is severe bilateral fac et joint osteoarthritis. There is moderate bilateral neural foraminal stenosis. There is mild central canal stenosis. L5-S1: Disc is mildly bulging. There is severe right and moderate left facet joint osteoarthritis. Th ere is mild right and moderate left neural foraminal stenosis. There is no central canal stenosis. IMPRESSION: 1. Mild lumbar spondylosis. Reviewed, dictated and finalized at location A. TURNING LATHE OPERATOR IMPRESSION: 1. Mild lumbar spondylosis.
--- NOTE | ~2022-06-01 | MR_ITS ---
MRI of the pelvis Clinical history: Pelvic pain TECHNIQUE: Axial T1 weighted and T2 fat-sat images, coronal T1 weighted and T2 fat-sat images, and sa gittal T1-weighted and T2 fat sat images were acquired. COMPARISON: CT scan dated 08/27/2021 FINDINGS: Patient is status post hysterectomy, probable bilateral oophorectomy. No abnormal pelvic ma ss lesion or free fluid identified. Urinary bladder unremarkable. Visualized bowel loops are unremarkable. No lymphadenopathy identified. Visualized bone marrow signal s are unremarkable. No hernia identified. IMPRESSION: No significant abnormality seen. Status post hysterectomy and probable bilateral oophorectomy. Correl ate with surgical history. Reviewed, dictated and finalized at location [] /[facility] T[employer]ICAL [employer] CONTROLLER IMPRESSION: No significant abnormality seen. Status post hysterectomy and probable bilatera l oophorectomy. Correlate with surgical history.
== END ==
PROVIDERS: PCP Nurse Practitioner Family; Visit Provider Nurse Practitioner Family
DX: R10.2 Pelvic and perineal pain (principal); M47.896 Other spondylosis, lumbar region
CPT/HCPCS: 72148; 72195

== ENCOUNTER 2022-08-08 08:23 | Outpatient (CLI) | payer MEDICARE, OTHER, SELFPAY ==
[2022-08-08 08:48] LABS: Hematocrit 43.8 % (37.0-47.0); Hemoglobin 14.3 g/dL (12.0-15.0)
[2022-08-08 09:00] LABS: Alanine Aminotransferase 16 U/L (6-35); Albumin Level 4.5 g/dL (3.5-5.1); Alkaline Phosphatase 66 U/L (38-126); Anion Gap 4 mmol/L (8-16); Aspartate Amino Transferase 19 U/L (14-36); Bilirubin,Total 0.5 mg/dL (0.2-1.3); Blood Urea Nitrogen 14 mg/dL (7-17); Carbon Dioxide 31 mmol/L (22-30); Chloride 104 mmol/L (98-107); Estimated Glomerular Filt Rate > 60; Glucose 90 mg/dL (65-110); Potassium 4.1 mmol/L (3.4-5.0); Sodium 139 mmol/L (137-145)
[2022-08-08 09:38] LABS: Iron 82 ug/dL (37-170)
[2022-08-08 09:50] LABS: Percent Iron Saturation 27 % (20-50)
[2022-08-10 16:00] LABS: PCP NEGATIVE ng/mL (<25)
[2022-08-11 11:29] LABS: Amphetamines Negative; Barbiturates Negative; Benzodiazepines Negative; Cocaine Metabolites Negative; Marijuana Metabolites Negative
== END 2022-08-08 08:24 | disposition home or self-care (01) ==
PROVIDERS: Internal Medicine; PCP Internal Medicine; Visit Provider Internal Medicine
DX: E78.5 Hyperlipidemia, unspecified (principal); E74.39 Other disorders of intestinal carbohydrate absorption; D64.9 Anemia, unspecified; E61.1 Iron deficiency; E53.8 Deficiency of other specified B group vitamins; E55.9 Vitamin D deficiency, unspecified; Z79.899 Other long term (current) drug therapy
CPT/HCPCS: 36415; 80053; 80307; 82306; 82607; 83540; 83550; 84443; 85014; 85018

== ENCOUNTER 2022-10-01 08:58 | Outpatient (CLI) | payer MEDICARE, OTHER, SELFPAY ==
--- NOTE | ~2022-10-01 | MM_ITS ---
EXAMINATION: MM screening usama BI w genna HISTORY: Screening mammogram TECHNIQUE: Craniocaudal and mediolateral oblique 3-D tomosynthesis images were obtained and synthetic 2-D images were generated. CAD analysis was submitted and interpreted. COMPARISON: 08/13/2021, 07/31/2020, 07/24/2019 BREAST PARENCHYMAL COMPOSITION:The breasts are almost entirely fatty FINDINGS: Benign vascular calcifications are present. No suspicious mass, calcification, or conservation or heritage architect ural distortion are identified in either breast to suggest malignancy. There has been no suspicious i nterval change. IMPRESSION: No mammographic evidence of malignancy. Recommend routine screening mammography in one year. BI-RADS Category 2: Benign finding(s). Reviewed, dictated and finalized at location .
== END 2022-10-01 08:59 | disposition home or self-care (01) ==
PROVIDERS: PCP Internal Medicine; Visit Provider Internal Medicine
DX: Z12.31 Encounter for screening mammogram for malignant neoplasm of breast (principal)
CPT/HCPCS: 77063; 77067

== ENCOUNTER 2023-02-13 07:56 | Outpatient (CLI) | payer MEDICARE, OTHER, SELFPAY ==
[2023-02-13 08:48] LABS: Hematocrit 42.8 % (37.0-47.0); Hemoglobin 13.9 g/dL (12.0-15.0); Mean Corpuscular HGB Conc 32.5 g/dl (32-36); Mean Corpuscular Hemoglobin 31.2 pg (26-34); Mean Platelet Volume 11.9 fl (7.4-10.4); Platelet Count Result 192 k/mm3 (150-375); Red Blood Count 4.46 M/mm3 (4.2-5.4); White Blood Count 4.8 K/mm3 (4.5-10.0)
[2023-02-13 09:24] LABS: Cholesterol 225 mg/dL (0-200); HDL Direct 45 mg/dL; LDL Cholesterol Direct 146 mg/dL; Triglycerides 128 mg/dL (<150)
[2023-02-13 09:48] LABS: Iron 58 ug/dL (37-170)
[2023-02-13 09:58] LABS: Percent Iron Saturation 17 % (20-50)
== END 2023-02-13 07:57 | disposition home or self-care (01) ==
PROVIDERS: PCP Nurse Practitioner; Visit Provider Nurse Practitioner
DX: E05.90 Thyrotoxicosis, unspecified without thyrotoxic crisis or storm (principal); E61.1 Iron deficiency; E78.5 Hyperlipidemia, unspecified
CPT/HCPCS: 36415; 80061; 83540; 83550; 84443; 85027

== ENCOUNTER 2023-03-16 08:28 | Observation (INO) | payer MEDICARE, OTHER, SELFPAY ==
[2023-03-16] VITALS (50 sets, daily range): BP systolic 145–193; BP diastolic 50–77; PULSE 46–75; RESP 9–20; TEMP 35.6–36.5; O2SAT 90–100
--- NOTE | ~2023-03-16 | CT_ITS ---
EXAMINATION: CT brain wo con DATE: 03/16/2023 09:40 INDICATION: Confusion. Weakness. TECHNIQUE: Computed tomography (CT) of the head was performed without intravenous contrast. The mA wa s adjusted according to patient size. Iterative reconstruction technique was employed. The dose-lengt h product was 605.33 mGy-cm. COMPARISON: None FINDINGS: There are scattered areas of low attenuation in the cerebral white matter, which is within normal limits for the patient's age. There is no intracranial hemorrhage, acute infarction, or abnorm al intracranial mass lesion. The ventricles are normal in size. The paranasal sinuses are clear. The mastoid air cells are normal. IMPRESSION: 1. Normal aging brain. Reviewed, dictated and finalized at location A. IMPRESSION: 1. Normal aging brain.
--- NOTE | ~2023-03-16 | CT_ITS ---
EXAMINATION: CTA brain carotid DATE: 03/16/2023 12:12 INDICATION: Transient ischemic attack. TECHNIQUE: Computed tomographic angiography (CTA) of the head was performed with 100 mL Omnipaque-350 intravenous contrast. CTA of the neck was performed with intravenous contrast. Automated exposure co ntrol and iterative reconstruction technique were employed. The dose-length product was 1176.11 mGy-c m. Maximum intensity projection and volume rendered 3D-reconstructions were created by the technFilecoini st on a separate workstation. COMPARISON: Head CT 03/16/2023 FINDINGS: HEAD CTA: There are scattered areas of low attenuation in the cerebral white matter, which is within normal limits for the patient's age. There is no intracranial hemorrhage, acute infarction, or abnorm al intracranial mass lesion. The ventricles are normal in size. There is mild mucosal thickening in t he paranasal sinuses. The orbits are normal. The mastoid air cells are normal. The vertebral arteries are codominant. There is no significant stenosis of basilar artery or the posterior cerebral arterie s. The posterior communicating arteries are normal. There is no significant stenosis of intracranial internal carotid arteries or anterior or middle cerebral arteries. Anterior communicating artery is n ormal. There is no aneurysm. NECK CTA: The lungs demonstrate mild atelectasis. There is mild scarring at the lung apices. There is a multinodular goiter that extends into the mediastinum. There are no pathologically enlarged lymph nodes. There is no significant stenosis of the vertebral arteries. There is plaque in the proximal in ternal carotid arteries. There is 0% stenosis of the proximal right internal carotid artery relative to normal distal artery lumen diameter (NASCET criteria). There is 0% stenosis of the proximal left i nternal carotid artery relative to normal distal artery lumen diameter. There is mild cervical spondy losis. IMPRESSION: 1. Normal aging brain. 2. No aneurysm or significant intracranial arterial stenosis. 3. 0% stenosis of the proximal internal carotid arteries relative to normal distal artery lumen diame ters (NASCET criteria). Reviewed, dictated and finalized at location A. IMPRESSION: 1. Normal aging brain. 2. No aneurysm or significant intracranial arterial stenosis. 3. 0% stenosis of the proximal internal carotid arteries relative to normal dis nicolasa artery lumen diameters (NASCET criteria).
--- NOTE | ~2023-03-16 | MR_ITS ---
EXAMINATION: MR brain/brain stem wo/w con DATE: 03/17/2023 10:24 INDICATION: Transient ischemic attack. TECHNIQUE: Magnetic resonance imaging (MRI) of the brain and brainstem was performed without and with 14 mL MultiHance intravenous contrast. COMPARISON: Brain MRI 11/21/2021, head CT 03/16/2023 FINDINGS: There are scattered areas of nonspecific increased T2-weighted signal intensity in the cere bral white matter and stevo. There is no intracranial hemorrhage, acute infarction, or abnormal intrac ranial mass lesion. The ventricles are normal in size. The mastoid air cells are normal. The orbits a re normal. The paranasal sinuses are clear. IMPRESSION: 1. Mild nonspecific cerebral white matter disease and pontine disease, which likely represents chroni c small vessel ischemic disease, mildly worsened from 11/21/2021. Reviewed, dictated and finalized at location E. IMPRESSION: 1. Mild nonspecific cerebral white matter disease and pontine disease, which jozef yeh represents chronic small vessel ischemic disease, mildly worsened from 11/21.
--- NOTE | ~2023-03-16 | CT_ITS ---
EXAMINATION: CT abdomen pelvis w con DATE: 03/16/2023 09:40 INDICATION: Generalized weakness and confusion. Left flank pain. Weakness. TECHNIQUE: Computed tomography (CT) of the abdomen and pelvis was performed with 100 cc Omnipaque 350 intravenous contrast. The dose-length product was 488.84 mGy-cm. Automated exposure control and iter ative reconstruction technique were employed. COMPARISON: CT dated 08/29/2021 FINDINGS: Small pleural effusions with dependent atelectasis. Heart size normal. There is atheroscler osis of the aorta without aneurysm. There is segmental small bowel wall thickening with mucosal enhan cement in the left lower abdomen and pelvis. No definite obstruction. There are surgical anastomotic changes involving multiple segments of small bowel and: There are pleural calcifications suggesting p rior asbestos exposure. There is a small low-density lesion right hepatic lobe, most likely benign cy st or hemangioma. No lymphadenopathy. There is a pessary device in the vagina. Small sliding hiatal h ernia. Benign bone island of the right femoral head. Benign bone island of L2.. IMPRESSION: 1. Segmental small bowel wall thickening with mucosal enhancement of the left lower abdomen and pelvi s, suspicious for enteritis. 2: Small pleural effusions with dependent atelectasis. Reviewed, dictated and finalized at location L. IMPRESSION: 1. Segmental small bowel wall thickening with mucosal enhancement of the left l ower abdomen and pelvis, suspicious for enteritis. 2: Small pleural effusions with dependent atelectasis.
--- NOTE | ~2023-03-16 | MR_ITS ---
EXAMINATION: MR thoracic spine wo con DATE: 03/17/2023 10:24 INDICATION: Low back pain. Bilateral leg pain. Leg dysfunction. TECHNIQUE: Magnetic resonance imaging (MRI) of the thoracic spine was performed without intravenous c ontrast. COMPARISON: None FINDINGS: There is 5 degrees levocurvature of thoracic spine. There is kyphosis of thoracic spine. Th ere is mild chronic anterior wedging of T6-T9 vertebral bodies. There is mildly decreased disc height at T4-T5, T5-T6 and T6-T7. The discs do not extend beyond the endplate margins. There is multilevel mild facet joint osteoarthritis. No central canal stenosis. No neural foraminal stenosis. The spinal cord signal intensity is normal. IMPRESSION: 1. Mild thoracic spondylosis. Reviewed, dictated and finalized at location E.
--- NOTE | ~2023-03-16 | XR_ITS ---
EXAMINATION: XR chest 2V DATE: 03/16/2023 09:51 INDICATION: Weakness. Speech impairment. TECHNIQUE: Frontal and lateral views of the chest were obtained. COMPARISON: Chest 2 views 05/23/2022, CT abdomen and pelvis 03/16/2023 FINDINGS: There is mild atelectasis in left lower lung zone. No pleural effusion or pneumothorax. The heart size is normal. There are old healed right rib fractures. IMPRESSION: 1. Mild atelectasis in left lower lung zone. Reviewed, dictated and finalized at location A.
--- NOTE | ~2023-03-16 | MR_ITS ---
EXAMINATION: MR lumbar spine wo con DATE: 03/17/2023 10:24 INDICATION: Low back pain. Bilateral leg pain. TECHNIQUE: Magnetic resonance imaging (MRI) of the lumbar spine was performed without intravenous con trast. Sequences included sagittal T2-weighted FSE, sagittal T2-weighted FS FSE, sagittal T1-weighted FSE, and axial T2-weighted FSE. COMPARISON: Lumbar spine MRI 06/01/2022 FINDINGS: There is 6 degrees levocurvature of lumbar spine. Vertebral body heights and intervertebral disc heights are normal. The distal spinal cord signal intensity is normal. The conus medullaris is at L1. The following disc levels are specifically discussed: L1-L2: The disc does not extend beyond the endplate margin. There is mild bilateral facet joint osteo arthritis. There is no neural foraminal stenosis. There is no central canal stenosis. L2-L3: The disc is mildly bulging. There is mild bilateral facet joint osteoarthritis. There is mild bilateral neural foraminal stenosis. There is no central canal stenosis. L3-L4: The disc is bulging and has an annular fissure. There is severe bilateral facet joint osteoart hritis. There is mild bilateral neural foraminal stenosis. There is no central canal stenosis. L4-L5: The disc is bulging and has an annular fissure. There is severe bilateral facet joint osteoart hritis. There is mild bilateral neural foraminal stenosis. There is mild central canal stenosis. L5-S1: There is a left foraminal protrusion. There is severe bilateral facet joint osteoarthritis. Th ere is mild left neural foraminal stenosis. There is no central canal stenosis. IMPRESSION: 1. Mild lumbar spondylosis, stable from 06/01/2022. Reviewed, dictated and finalized at location E.
--- NOTE | 2023-03-16 08:42 | ECG_ITS ---
Measurements Intervals [place] Rate: 61 P: -15 AK: 182 QRS: -5 QRSD: 85 T: 6 QT: 393 QTc: 396 Interpretive Statements SINUS RHYTHM VOLTAGE CRITERIA FOR LVH INFERIOR INFARCT, AGE INDETERMINATE ABNORMAL ECG COMPARED TO ECG 05/23/2022 13:30:17 SINUS RHYTHM NOW PRESENT Electronically Signed On 03-16-2023 14:22:49 CDT by Haja Agee D.O.
--- NOTE | 2023-03-16 09:01 | ED.GENADULT ---
HPI - General Adult General Chief complaint: Weakness Stated complaint: back pain Time Seen by Provider: 03/16/23 08:35 History of Present Illness HPI narrative: 83-year-old female presented the emergency department for evaluation of increased confusion and lower back pain. Patient was on a day bus trip on Wednesday and had onset of chest pain back pain and was worked up at an outside hospital and no acute abnormalities were found. Patient had a negative cardiac work-up. No explanation for the patient's symptoms was given to the patient or family. Patient did feel okay on Wednesday but on Wednesday began to have worsening symptoms and this morning when the patient woke up she was confused, having increased confusion and some numbness and weakness that did affect the left hand. Patient states she was also having some back pain at that time. Upon arrival to the ED patient states that the numbness has resolved and patient has no pain but patient does still appear confused. Patient was started on Crestor per family. Related Data Home Medications Medication Instructions Recorded Confirmed cyclosporine 0.05 % eye drops in a 2 drp ophthalmic (eye) Q12H 07/12/19 03/16/23 dropperette (Restasis) fluticasone propionate 50 1 spray intranasal DAILY 04/11/22 03/16/23 mcg/actuation nasal spray,suspension vit C 250 mg-vit E 90 mg-zinc 40 1 tablet PO BID 04/11/22 03/16/23 mg-copper 1 no-hqlqur-dkxizg capsule (PreserVision AREDS-2) calcium-vitamin D3-vitamin K 500 1 tablet PO BID 08/12/22 03/16/23 mg-200 unit-40 mcg chewable tablet cholecalciferol (vitamin D3) 25 50 mcg PO DAILY 08/12/22 03/16/23 mcg (1,000 unit) capsule apixaban 2.5 mg tablet (Eliquis) 2.5 mg PO AC 03/16/23 03/16/23 cetirizine 10 mg tablet (Zyrtec) 10 mg PO DAILY 03/16/23 03/16/23 multivitamin-ferrous 2 tablet PO DAILY 03/16/23 03/16/23 fumarate-folic acid 18 mg-400 mcg tablet (Centrum Women) rosuvastatin 10 mg tablet 10 mg PO HS 03/16/23 03/16/23 tolterodine 4 mg capsule,extended 4 mg PO DAILY 03/16/23 03/16/23 release 24 hr (Detrol LA) Allergies Allergy/AdvReac Type Severity Reaction Status Date / Time No Known Allergies Allergy Verified 03/16/23 08:50 Review of Systems Review of Systems: All systems reviewed & are unremarkable except as noted in HPI and below PMFSH Past Medical History Medical History (Updated 03/16/23 @ 15:43 by Radha Ceron PA-C) Arthritis B12 deficiency Chronic anticoagulation COVID-19 GERD without esophagitis Glucose intolerance Graves disease Hyperlipidemia Iron deficiency Memory loss Overactive bladder Paroxysmal atrial fibrillation Restless leg syndrome Small bowel obstruction Spinal stenosis of lumbar region with radiculopathy Vitamin D deficiency Surgical History Surgical History (Updated 03/16/23 @ 15:43 by Radha Ceron PA-C) History of colostomy reversal History of colonoscopy complicated by bowel perforation requiring diverting loop ileostomy status post takedown in June 2013. History of hysterectomy History of partial thyroidectomy Family History Family History Mother Family history of cardiovascular disease Sibling Carcinoma of colon Father Cerebrovascular accident 2 strokes, age 94 Sibling Family history of malignant neoplasm Sibling Lung cancer Sibling Lung cancer Other Parents Social History Social History (Updated 03/16/23 @ 15:44 by Radha Ceron PA-C) Social History: Surrogate medical decision maker: Graciela Guzman, daughter. Code status: Full code. Smoking status: Never smoker Second hand tobacco smoke exposure: Yes Alcohol intake: never Substance use: never Substance use type: does not use Lack of Transportation: No Lack of Food: Never True Current Housing: I Have Housing Concerned About Future Housing: No Difficulty Paying Ga
[2023-03-16 09:02] LABS: Basophils Absolute Auto 0.1 K/mm3 (0.0-0.1); Eosinophils Absolute Auto 0.2 K/mm3 (0-0.3); Eosinophils Percent Auto 3.4 % (0-4.4); Hematocrit 42.5 % (37.0-47.0); Hemoglobin 13.9 g/dL (12.0-15.0); Immature Granulocyte Absolute 0.02 K/mm3 (0.00-0.031); Immature Granulocyte Percent A 0.3 % (0-0.5); Lymphocytes Absolute Auto 1.49 K/mm3 (0.9-3.2); Lymphocytes Percent Auto 25.2 % (18.3-44.2); Mean Corpuscular HGB Conc 32.7 g/dl (32-36); Mean Corpuscular Hemoglobin 31.7 pg (26-34); Mean Platelet Volume 12.9 fl (7.4-10.4); Monocytes Absolute Auto 0.7 K/mm3 (0.1-0.6); Neutrophils Absolute Auto 3.5 K/mm3 (1.3-6.7); Neutrophils Percent Auto 59.1 % (45.5-73.1); Platelet Count Result 157 k/mm3 (150-375); Red Blood Count 4.38 M/mm3 (4.2-5.4); Red Cell Distribution Width 12.2 % (11.5-14.5); White Blood Count 5.9 K/mm3 (4.5-10.0)
[2023-03-16 09:04] LABS: Appearance Urine Clear (Clear); Bilirubin Urine Negative (Negative); Blood Urine Negative (Negative); Color Urine Yellow (Yellow); Glucose Urine UA Negative (Negative); Ketones Urine Negative (Negative); Leukocyte Esterase Ur Negative LEU/UL (Negative); Nitrate Urine Negative (Negative); Protein Urine Negative (Negative); Specific Grav Ur 1.004 (1.001-1.035); Urobilinogen Urine 0.2 mg/dL (<2.0); pH Urine 7.5 (5.0-9.0)
[2023-03-16 09:05] LABS: Add Urine Microscopic? NO
[2023-03-16 09:13] LABS: Alanine Aminotransferase 26 U/L (6-35); Albumin Level 4.5 g/dL (3.5-5.1); Alkaline Phosphatase 80 U/L (38-126); Anion Gap 7 mmol/L (8-16); Aspartate Amino Transferase 26 U/L (14-36); Bilirubin,Total 0.6 mg/dL (0.2-1.3); Blood Urea Nitrogen 14 mg/dL (7-17); Calcium 9.2 mg/dL (8.4-10.2); Carbon Dioxide 28 mmol/L (22-30); Chloride 106 mmol/L (98-107); Estimated CRCL calculation 44 ml/min; Estimated Glomerular Filt Rate > 60; Glucose 85 mg/dL (65-110); Potassium 3.7 mmol/L (3.4-5.0); Sodium 141 mmol/L (137-145)
[2023-03-16 09:46] LABS: Troponin I < 0.012 ng/mL (0.000-0.034)
[2023-03-16 09:57] LABS: Influenza A QL RT-PCR Negative (Negative); Influenza B QL RT-PCR Negative (Negative); RSV RNA, RT-PCR Negative (Negative); SARS-CoV-2 RNA PCR Negative (Negative)
[2023-03-16] MEDS: SODIUM CHLORIDE 0.9% IV 1,000 ML 999 ML IV CONT (09:59)
[2023-03-16 12:36] LABS: Troponin I < 0.012 ng/mL (0.000-0.034)
--- NOTE | 2023-03-16 15:35 | ADMGEN ---
This patient, Venessa Gifford, was admitted to [facility] Surg Room 307-02. Patient/family oriented to hospital policies and general routines including ID bracelet, bed and alarms, visiting hours, pain management, procedures, bathroom and other care routines, personal items, smoking policy, room service/diet, and visiting hours. Information on how to activate the Rapid Response Team has been discussed. Patient/Family are encouraged to report perceived risks to care and to ask questions if they do not understand what they are told or what they should do.
--- NOTE | 2023-03-16 15:35 | PM.IMHP ---
H&P: HPI History of Present Illness Date/Time: 03/16/23 16:00 Chief Complaint: Confusion, left hand weakness. Narrative: This is an 83-year-old female with paroxysmal atrial fibrillation on chronic anticoagulation, hyperlipidemia, Graves disease status post partial thyroidectomy, memory loss, gastroesophageal reflux disease, and overactive bladder who presented to the emergency department for evaluation of confusion and left hand weakness. The patient provides the following history. She was recently on a senior trip to [place] and on the bus back home last Wednesday she developed severe, aching mid to low back pain radiating down both legs. She also tells me that her legs were exquisitely sensitive to touch I cried out in pain when someone helped me move them. Her symptoms became increasingly severe and about 2 hours away from home and she was seen at an ER in [place], [place]. Workup there was unremarkable and she was discharged. A friend had to come get her to drive her home. She felt a bit better the next day though still had some discomfort in the back and legs. 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 This morning when she got up she was still feeling quite tired and her back was aching. The last thing she remembers is trying to feed her dog and having difficulties using her left hand and the next thing she knows she is in the emergency room. She denies headache, neck ache, fever, sinus congestion, sore throat, chest pain, shortness a breath, cough, nausea, vomiting, diarrhea, and dysuria. Vital signs were stable on arrival to the ED though her blood pressures have been running in the 150s to 170s systolic. CMP, CBC, and troponin were really unremarkable. Urinalysis was negative. Influenza, RSV, and COVID were also negative. Brain CT and CTA of the head and neck were also unremarkable. CT of the abdomen pelvis showed findings suspicious for enteritis however she has no symptoms to correlate with these findings. She is being admitted in this setting for close monitoring and neurology consultation. Review of Systems Review of Systems: Twelve systems were reviewed and are negative except for as per HPI. PENDING SALE TO [facility] Past Medical History Medical History Arthritis B12 deficiency Chronic anticoagulation COVID-19 GERD without esophagitis Glucose intolerance Graves disease Hyperlipidemia Iron deficiency Memory loss Overactive bladder Paroxysmal atrial fibrillation Restless leg syndrome Small bowel obstruction Spinal stenosis of lumbar region with radiculopathy Vitamin D deficiency Surgical History Surgical History History of colostomy reversal History of colonoscopy complicated by bowel perforation requiring diverting loop ileostomy status post takedown in June 2013. History of hysterectomy History of partial thyroidectomy Family History Family History Mother Family history of cardiovascular disease Sibling Carcinoma of colon Father Cerebrovascular accident 2 strokes, age 94 Sibling Family history of malignant neoplasm Sibling Lung cancer Sibling Lung cancer Other Parents Social History Social History (Updated 03/17/23 @ 14:58 by Radha Ceron PA-C) Social History: Surrogate medical decision maker: Graciela Guzman, daughter. Code status: Full code. Smoking status: Never smoker Second hand tobacco smoke exposure: Yes Alcohol intake: never Substance use: never Substance use type: does not use Lack of Transportation: No Lack of Food: Never True Current Housing: I Have Housing Concerned About Future Housing: No Difficulty Paying Gas/Electric Bills: No Difficulty Paying for Meds: No Cur
[2023-03-17] VITALS (9 sets, daily range): BP systolic 138–149; BP diastolic 53–66; PULSE 52–66; RESP 12–16; TEMP 36.1–36.3; O2SAT 92–97
[2023-03-17] MEDS: APIXABAN 2.5 MG TABLET PO ×2 (06:22→16:32)
[2023-03-17 06:24] LABS: Anion Gap 5 mmol/L (8-16); Blood Urea Nitrogen 14 mg/dL (7-17); Calcium 8.2 mg/dL (8.4-10.2); Carbon Dioxide 27 mmol/L (22-30); Chloride 105 mmol/L (98-107); Estimated CRCL calculation 50 ml/min; Estimated Glomerular Filt Rate > 60; Glucose 90 mg/dL (65-110); Magnesium 2.5 mg/dL (1.6-2.3); Potassium 3.9 mmol/L (3.4-5.0); Sodium 137 mmol/L (137-145)
[2023-03-17] MEDS: dilTIAZem HCL 30 MG TABLET PO ×2 (08:23→16:32)
[2023-03-17] MEDS: OPTI-GEN TAB 1 TABLET PO ×2 (08:23→16:32)
[2023-03-17] MEDS: MULTIVITAMINS /C LUTEIN (CENTRUM SILVER) TABLET *BKC 2 TAB PO (08:23)
[2023-03-17] MEDS: LORATADINE 10 MG TABLET PO (08:23)
[2023-03-17] MEDS: CHOLECALCIFEROL 1,000 UNITS TABLET 2000 UNITS PO (08:23)
[2023-03-17] MEDS: methiMAzole 5 MG TAB PO (08:24)
[2023-03-17] MEDS: cycloSPORINE 0.4 ML OPHTH SOLUTION 1 DROP EACH EYE ×2 (08:24→20:32)
[2023-03-17] MEDS: TOLTERODINE TARTRATE LA 4 MG CAP.ER.24H PO (08:24)
[2023-03-17] MEDS: FLUTICASONE PROPIONATE 0.05% NA SPR 16 GM BTL (*BKC) 1 SPRAY NASAL (08:24)
--- NOTE | 2023-03-17 12:30 | WPDNEURCNPN ---
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 Transient alteration of awareness raising the possibility of TIA particularly with history of underlying paroxysmal atrial fibrillation but the patient is taking appropriate medications and she is more concerned about the back pain at this particular time. She has had the MRI of the lumbar spine in May of 2022 shows only compatible with the lumbar spondylosis without any significant canal stenosis she can continue with the symptomatic treatment and other medications such Consult date: 03/17/23 HPI: Venessa Gifford is a 83 year old female Has been admitted to the hospital through the emergency room for the complaints of increasing confusion and increasing lower back pain patient reportedly was in a day but strip on Wednesday and had onset of chest pain back pain was worked up at an outside hospital with no acute abnormalities, negative cardiac workup she felt okay on Wednesday but on Wednesday began to have worsening symptoms and she woke up with increasing confusion along with numbness and weakness of the left hand in addition to back pain. Her medications included rosuvastatin 10 mg daily she is not allergic to any medication she has ongoing history of B12 deficiency, chronic anticoagulation, Graves disease, paroxysmal atrial fibrillation, and memory loss. She has never alcohol intake never substance user never smoker and initial exam in the emergency room was nonfocal her vital signs were with blood pressure 193/77 routine lab studies were normal and she was negative for influenza AB RSV and covid. Her initial CT scan in the emergency room was negative for the head and negative head and neck CTA with normal EKG without atrial fibrillation. Review of Systems Review of Systems: All systems reviewed & are unremarkable except as noted in HPI and below [facility] Past Medical History Medical History (Updated 03/17/23 @ 12:39 by Simón Jaramillo MD) Arthritis B12 deficiency Chronic anticoagulation COVID-19 GERD without esophagitis Glucose intolerance Graves disease Hyperlipidemia Iron deficiency Memory loss Overactive bladder Paroxysmal atrial fibrillation Restless leg syndrome Small bowel obstruction Spinal stenosis of lumbar region with radiculopathy Vitamin D deficiency Surgical History Surgical History (Updated 03/16/23 @ 15:43 by Radha Ceron PA-C) History of colostomy reversal History of colonoscopy complicated by bowel perforation requiring diverting loop ileostomy status post takedown in June 2013. History of hysterectomy History of partial thyroidectomy Family History Family History Mother Family history of cardiovascular disease Sibling Carcinoma of colon Father Cerebrovascular accident 2 strokes, age 94 Sibling Family history of malignant neoplasm Sibling Lung cancer Sibling Lung cancer Other Parents Social History Social History (Updated 03/16/23 @ 15:44 by Radha Ceron PA-C) Social History: Surrogate medical decision maker: Graciela Guzman, daughter. Code status: Full code. Smoking status: Never smoker Second hand tobacco smoke exposure: Yes Alcohol intake: never Substance use: never Substance use type: does not use Lack of Transportation: No Lack of Food: Never True Current Housing: I Have Housing C
--- NOTE | 2023-03-17 12:46 | PM.IMPN ---
Progress Note: A&P Assessment and Plan (1) Transient alteration of awareness: Code(s): R40.4 - Transient alteration of awareness Status: Acute Assessment and Plan: Patient does not remember what happened yesterday up until that point she ended up in the emergency department (2) Left hand weakness: Code(s): R29.898 - Other symptoms and signs involving the musculoskeletal system Status: Acute Assessment and Plan: Symptom has completely resolved, MRI of the brain is negative (3) Paroxysmal atrial fibrillation: Code(s): I48.0 - Paroxysmal atrial fibrillation Status: Acute Assessment and Plan: History of atrial fibrillation for which she is on anticoagulation Eliquis and diltiazem for rate control (4) Chronic anticoagulation: Code(s): Z79.01 - 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 Time Spent With Patient Time with patient: Greater than 35 minutes Subjective Date/time seen: 03/17/23 12:46 Interval history: Patient reports that last week she had emesis multiple times and then developed severe back pain radiating down both legs with skin sensitivity. She started to feel little bit better then yesterday she could not remember the morning and suddenly the next thing she could remember was being in the emergency department. Patient does not know how she got so sick or confused. However, now she feels back to normal with no residual symptoms. Review of Systems Review of Systems: Twelve systems were reviewed and are negative except for as per HPI. Exam Narrative: General: Well-developed female supine in bed in no distress. HEENT: PERRL, EOMI. Sclera anicteric. Oral mucosa moist. Oropharynx clear. Neck: Supple. No carotid bruits. Respiratory: Lungs are clear to auscultation bilaterally. Cardiovascular: Regular rate and rhythm with S1-S2. Gastrointestinal: Abdomen is soft, nontender, and nondistended with positive bowel sounds. Skin: Warm and dry. No rash or lesions on limited exam. Extremities: No cyanosis, clubbing, or edema. Radial and pedal pulses intact. Neurological: Alert and oriented x4. Cranial nerves 2-12 are grossly intact. Speech is clear. No facial asymmetry. No pronator drift. Normal [id number] and rapid alternating movements. Strength 5/5 in upper and lower extremities. Sensation intact throughout. Psychiatric: Pleasant and cooperative with normal mood and affect. Judgment and insight intact. Objective Data Vital Signs Vital Signs: Vital Signs - 24 hr 03/16/23 13:00 03/16/23 13:01 03/16/23 13:15 Temperature Pulse Rate 51 L 48 L 50 L Respiratory Rate 15 13 14 Blood Pressure 161/65 H Pulse Oximetry 98 98 98 Oxygen Delivery 03/16/23 13:16 03/16/23 13:30 03/16/23 13:31 Temperature Pulse Rate 49 L 49 L 50 L Respiratory Rate 16 17 17 Blood Pressure 160/67 H 157/61 H Pulse Oximetry 97 96 96 Oxygen Delivery 03/16/23 13:45 03/16/23 13:46 03/16/23 14:02 Temperature Pulse Rate 51 L 51 L 52 L Respiratory Rate 11 L 9 L 16 Blood Pressure 146/61 H Pulse Oximetry 99 100 94 Oxygen Delivery 03/16/23 14:16 03/16/23 14:24 03/16/23 14:30 Temperature Pulse Rate 46 L 56 L 54 L Respiratory Rate 16 18 17 Blood Pressure 154/61 H Pulse Oximetry 98 97 93 Oxygen Delivery 03/16/23 14:45 03/16/23 15:00 03/16/23 16:10 Temperature 35.6 C L Pulse Rate 55 L 53 L 52 L Respiratory Rate 16 17 18 Blood Pressure 169/61 H Pulse Oximetry 97 99 99 Oxygen Delivery 03/16/23 20:00 03/16/23 22:
[2023-03-17] MEDS: ROSUVASTATIN 10 MG TABLET PO (20:32)
[2023-03-18] VITALS (7 sets, daily range): BP systolic 130; BP diastolic 56; PULSE 46–56; RESP 12; TEMP 36.4; O2SAT 95–98
[2023-03-18] MEDS: APIXABAN 2.5 MG TABLET PO (05:44)
[2023-03-18] MEDS: FLUTICASONE PROPIONATE 0.05% NA SPR 16 GM BTL (*BKC) 1 SPRAY NASAL (08:30)
[2023-03-18] MEDS: TOLTERODINE TARTRATE LA 4 MG CAP.ER.24H PO (08:31)
[2023-03-18] MEDS: CHOLECALCIFEROL 1,000 UNITS TABLET 2000 UNITS PO (08:31)
[2023-03-18] MEDS: methiMAzole 5 MG TAB PO (08:31)
[2023-03-18] MEDS: LORATADINE 10 MG TABLET PO (08:31)
[2023-03-18] MEDS: dilTIAZem HCL 30 MG TABLET PO (08:31)
[2023-03-18] MEDS: MULTIVITAMINS /C LUTEIN (CENTRUM SILVER) TABLET *BKC 2 TAB PO (08:31)
[2023-03-18] MEDS: OPTI-GEN TAB 1 TABLET PO (08:31)
[2023-03-18] MEDS: cycloSPORINE 0.4 ML OPHTH SOLUTION 1 DROP EACH EYE (08:32)
--- NOTE | 2023-03-18 11:59 | PM.DS ---
DS: Admitting Diagnosis Discharge Date 03/18/2023 Admitting Diagnosis Transient alteration of awareness, left hand weakness, paroxysmal atrial fibrillation, chronic anticoagulation DS: Discharge Diagnosis Discharge Diagnosis (1) Transient alteration of awareness: Code(s): R40.4 - Transient alteration of awareness Status: Acute (2) Left hand weakness: Code(s): R29.898 - Other symptoms and signs involving the musculoskeletal system Status: Acute (3) Paroxysmal atrial fibrillation: Code(s): I48.0 - Paroxysmal atrial fibrillation Status: Acute (4) Chronic anticoagulation: Code(s): Z79.01 - intermediate (current) use of anticoagulants Status: Acute (5) Acute back pain: Code(s): M54.9 - Dorsalgia, unspecified Status: Acute (6) Small vessel disease, cerebrovascular: Code(s): I67.9 - Cerebrovascular disease, unspecified Status: Acute DS: Summary Hospital Course Reason for hospitalization: Patient was admitted for transient neurologic symptoms of left-sided numbness left arm weakness that was preceded by gastrointestinal discomfort and severe back and leg pain few days prior. Hospital Course: Patient was admitted to the hospital for stroke rule out after presenting with left-sided facial numbness left arm weakness that had improved over 15 to 20 minutes. 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 That workup was unremarkable and she was discharged home where she proceeded to not feel well until the day of admission. Patient also noted that she could not recall much of the day of the admission prior to suddenly regaining awareness in the emergency department. Patient reports that she was recently diagnosed with atrial fibrillation and started chronic anticoagulation 6 months ago. Patient has never experienced anything like this in the past. MRI the brain thoracic spine and lumbar spine were all unremarkable. Patient was feeling completely normal yesterday and continued to feel normal today with no recurrence of any symptoms. Discussed with patient that we sometimes do not figure out exactly what causes symptoms like this but also discuss that it is some viral illnesses such as enterovirus can cause GI upset and bizarre neurologic issues. Status at Discharge Cognitive/behavioral status at discharge: Awake alert oriented very pleasant Functional status at discharge: independent ambulation Overall status at discharge: patient is back to baseline Time Spent with Patient Time attestation: Total time spent providing and/or coordinating discharge services: 35 minutes Time spent: Greater than 30 minutes Exam Narrative: General: Well-developed female supine in bed in no distress. HEENT: PERRL, EOMI. Sclera anicteric. Oral mucosa moist. Oropharynx clear. Neck: Supple. No carotid bruits. Respiratory: Lungs are clear to auscultation bilaterally. Cardiovascular: Regular rate and rhythm with S1-S2. Gastrointestinal: Abdomen is soft, nontender, and nondistended with positive bowel sounds. Skin: Warm and dry. No rash or lesions on limited exam. Extremities: No cyanosis, clubbing, or edema. Radial and pedal pulses intact. Neurological: Alert and oriented x4. Cranial nerves 2-12 are grossly intact. Speech is clear. No facial asymmetry. No pronator drift. Normal [id number] and rapid alternating movements. Strength 5/5 in upper and lower extremities. Sensation intact throughout. Psychiatric: Pleasant and cooperative with normal mood and affect. Judgment and insight intact. DS: Data Data Completed and Pending Completed studies during hospitalization: Head CT abdomen pelvis CT, chest x-ray head neck CTA, brain MRI, lumbar spine MRI, thoracic spine MRI Discharge Plan Dischar
[2023-03-18] MEDS: traMADol HCL (*CRX) 50 MG TABLET PO (12:27)
== END 2023-03-18 13:10 | disposition home or self-care (01) ==
LOC: ANHED 13:09 → ANH3MEDSUR 15:01
PROVIDERS: Physician Assistant; Admitting Provider Chiropractor; Emergency Provider Emergency Medicine; PCP Nurse Practitioner; Visit Provider Chiropractor
DX: R40.4 Transient alteration of awareness (principal); R29.898 Other symptoms and signs involving the musculoskeletal system; I48.0 Paroxysmal atrial fibrillation; M54.50 Low back pain, unspecified; I67.9 Cerebrovascular disease, unspecified; M47.817 Spondylosis without myelopathy or radiculopathy, lumbosacral region; M47.814 Spondylosis without myelopathy or radiculopathy, thoracic region; M19.90 Unspecified osteoarthritis, unspecified site; Z20.822 Contact with and (suspected) exposure to COVID-19; E53.8 Deficiency of other specified B group vitamins; K21.9 Gastro-esophageal reflux disease without esophagitis; R94.31 Abnormal electrocardiogram [ECG] [EKG]; E78.5 Hyperlipidemia, unspecified; R90.82 White matter disease, unspecified; J98.11 Atelectasis; E74.39 Other disorders of intestinal carbohydrate absorption; G25.81 Restless legs syndrome; E55.9 Vitamin D deficiency, unspecified; N32.81 Overactive bladder; E05.00 Thyrotoxicosis with diffuse goiter without thyrotoxic crisis or storm; M48.061 Spinal stenosis, lumbar region without neurogenic claudication; E61.1 Iron deficiency; Z86.16 Personal history of COVID-19; Z79.01 Long term (current) use of anticoagulants; Z79.51 Long term (current) use of inhaled steroids; Z79.891 Long term (current) use of opiate analgesic; Z79.899 Other long term (current) drug therapy
CPT/HCPCS: 36415; 70450; 70496; 70498; 70553; 71046; 72146; 72148; 74177; 80048; 80053; 81003; 82607; 83735; 84443; 84484; 85025; 87637; 93005; 96360; 99285; A9270; A9577; G0378; J7030; Q9967

== ENCOUNTER 2023-05-15 08:33 | Outpatient (CLI) | payer MEDICARE, OTHER, SELFPAY ==
[2023-05-15 09:55] LABS: Alanine Aminotransferase 13 U/L (6-35); Albumin Level 4.1 g/dL (3.5-5.1); Alkaline Phosphatase 63 U/L (38-126); Anion Gap 8 mmol/L (8-16); Aspartate Amino Transferase 18 U/L (14-36); Bilirubin,Total 0.5 mg/dL (0.2-1.3); Blood Urea Nitrogen 14 mg/dL (7-17); Calcium 8.9 mg/dL (8.4-10.2); Carbon Dioxide 30 mmol/L (22-30); Chloride 101 mmol/L (98-107); Cholesterol 154 mg/dL (0-200); Estimated Glomerular Filt Rate > 60; Glucose 88 mg/dL (65-110); HDL Direct 45 mg/dL; Sodium 139 mmol/L (137-145); Triglycerides 198 mg/dL (<150)
[2023-05-15 10:06] LABS: LDL Cholesterol Direct 81 mg/dL
== END 2023-05-15 08:34 | disposition home or self-care (01) ==
LOC: ANHLAB 08:34
PROVIDERS: PCP Nurse Practitioner; Visit Provider Nurse Practitioner
DX: E78.5 Hyperlipidemia, unspecified (principal)
CPT/HCPCS: 36415; 80053; 80061

== ENCOUNTER 2023-08-24 08:04 | Outpatient (CLI) | payer MEDICARE, OTHER, SELFPAY ==
[2023-08-24 08:27] LABS: Hematocrit 44.1 % (37.0-47.0); Hemoglobin 14.2 g/dL (12.0-15.0); Mean Corpuscular HGB Conc 32.2 g/dl (32-36); Mean Corpuscular Hemoglobin 30.6 pg (26-34); Mean Platelet Volume 10.7 fl (7.4-10.4); Platelet Count Result 216 k/mm3 (150-375); Red Blood Count 4.64 M/mm3 (4.2-5.4); Red Cell Distribution Width 12.9 % (11.5-14.5); White Blood Count 4.8 K/mm3 (4.5-10.0)
[2023-08-24 08:39] LABS: Alanine Aminotransferase 18 U/L (6-35); Albumin Level 4.5 g/dL (3.5-5.1); Alkaline Phosphatase 65 U/L (38-126); Anion Gap 7 mmol/L (8-16); Aspartate Amino Transferase 28 U/L (14-36); Bilirubin,Total 0.8 mg/dL (0.2-1.3); Blood Urea Nitrogen 14 mg/dL (7-17); Calcium 8.6 mg/dL (8.4-10.2); Carbon Dioxide 26 mmol/L (22-30); Chloride 105 mmol/L (98-107); Cholesterol 220 mg/dL (0-200); Estimated Glomerular Filt Rate > 60; Glucose 95 mg/dL (65-110); HDL Direct 46 mg/dL; Potassium 4.4 mmol/L (3.4-5.0); Sodium 138 mmol/L (137-145); Triglycerides 146 mg/dL (<150)
[2023-08-24 08:48] LABS: LDL Cholesterol Direct 155 mg/dL
== END 2023-08-24 08:05 | disposition home or self-care (01) ==
PROVIDERS: PCP Nurse Practitioner; Visit Provider Nurse Practitioner
DX: E03.9 Hypothyroidism, unspecified (principal); E78.5 Hyperlipidemia, unspecified
CPT/HCPCS: 36415; 80053; 80061; 84439; 84443; 85027

== ENCOUNTER 2023-09-03 08:12 | Emergency (ER) | payer MEDICARE, OTHER, SELFPAY ==
--- NOTE | ~2023-09-03 | XR_ITS ---
EXAMINATION: WRIST 3+ VIEWS LT DATE: 09/03/2023 09:06 CDT INDICATION: Left wrist injury TECHNIQUE: Posteroanterior, ulnar deviation, oblique, and lateral views of the left wrist were obtain ed. COMPARISON: none FINDINGS: FINDINGS: Alignment is normal. There is fusion across the first interphalangeal and fifth distal interphalangea l joints. No fractures. Severe erosive osteoarthritis at the second proximal and distal end third and fourth distal interphalangeal joints with prominent central erosions at the base of the associated p halanges. Less severe moderate osteoarthritis at the first carpal metacarpal, at the metacarpophalang eal and remaining interphalangeal joints and mild osteoarthritis at the wrist, midcarpal and triscaph e joints. Soft tissues are unremarkable. IMPRESSION: 1. 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 No acute osseous abnormality. 2. Fusion across the first interphalangeal and fifth distal interphalangeal joints. Reviewed, dictated and finalized at location B. IMPRESSION: 1. 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 No acute o sseous abnormality. 2. Fusion across the first interphalangeal and fifth distal interphalangeal curt nts.
--- NOTE | ~2023-09-03 | XR_ITS ---
EXAMINATION: HAND 3+ VIEWS LT DATE: 09/03/2023 08:52 CDT INDICATION: Left wrist injury TECHNIQUE: Posteroanterior, oblique and lateral views of the left hand were obtained. COMPARISON: None. FINDINGS: Alignment is normal. There is fusion across the first interphalangeal and fifth distal interphalangea l joints. No fractures. Severe erosive osteoarthritis at the second proximal and distal end third and fourth distal interphalangeal joints with prominent central erosions at the base of the associated p halanges. Less severe moderate osteoarthritis at the first carpal metacarpal, at the metacarpophalang eal and remaining interphalangeal joints and mild osteoarthritis at the wrist, midcarpal and triscaph e joints. Soft tissues are unremarkable. IMPRESSION: 1. 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 No acute osseous abnormality. 2. Fusion across the first interphalangeal and fifth distal interphalangeal joints. Reviewed, dictated and finalized at location B. IMPRESSION: 1. 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 No acute o sseous abnormality. 2. Fusion across the first interphalangeal and fifth distal interphalangeal curt nts.
--- NOTE | ~2023-09-03 | XR_ITS ---
EXAMINATION: RIBS-LT 3+ VIEWS W/CXR 1 V DATE: 09/03/2023 INDICATION: Left rib pain post fall TECHNIQUE: A frontal inspiratory view of the chest and 3 views of the left ribs were obtained. COMPARISON: Chest radiograph dated 05/23/2022 FINDINGS: A couple old healed posterolateral right seventh and eighth rib fractures. No new rib fractures ident ified. No focal airspace opacities, pulmonary edema, pleural effusion or pneumothorax. Heart size is normal. Mild thoracic spondylosis. IMPRESSION: 1. No acute rib fracture or acute cardiopulmonary disease. Reviewed, dictated and finalized at location B.
[2023-09-03 08:23] VITALS: BP 138/72; PULSE 77; RESP 16; TEMP 36.3; O2SAT 97
[2023-09-03 08:24] VITALS: BP 138/72; PULSE 77; RESP 16; TEMP 36.3; O2SAT 97
--- NOTE | 2023-09-03 09:17 | ED.FALL ---
HPI - Fall General Chief Complaint: Extremity Injury, Upper Stated Complaint: Left Wrist,Side and Head Injury Time Seen by Provider: 09/03/23 08:41 Source: patient and RN notes reviewed Mode of arrival: ambulatory Limitations: no limitations History of Present Illness HPI Narrative: Patient presents today complaining of left wrist, hand, shoulder pain, and left rib pain. She tripped on uneven concrete yesterday around 4:00 p.m. and fell onto her left side. States her left arm and ribs took most of the force, and the left side of her forehead then she struck the ground minimally. She is complaining of most of her pain in the wrist and ribs. Ribs do not hurt worse with deep breath. Denies numbness or tingling in the arm or hand. Patient denies any current headache, neck pain, dizziness or lightheadedness, vision changes, nausea or vomiting. She rates her wrist and rib pain 10/10. She took some Tylenol and tramadol last night for pain, but none today yet. Patient is on Eliquis for AFib Related Data Home Medications Medication Instructions Recorded Confirmed cyclosporine 0.05 % eye drops in a 2 drp ophthalmic (eye) Q12H 07/12/19 09/03/23 dropperette (Restasis) fluticasone propionate 50 1 spray intranasal DAILY 04/11/22 09/03/23 mcg/actuation nasal spray,suspension vit C 250 mg-vit E 90 mg-zinc 40 1 tablet PO BID 04/11/22 09/03/23 mg-copper 1 av-avkzak-mzabnz capsule (PreserVision AREDS-2) calcium-vitamin D3-vitamin K 500 1 tablet PO BID 08/12/22 09/03/23 mg-200 unit-40 mcg chewable tablet cholecalciferol (vitamin D3) 25 50 mcg PO DAILY 08/12/22 09/03/23 mcg (1,000 unit) capsule cetirizine 10 mg tablet (Zyrtec) 10 mg PO DAILY 03/16/23 09/03/23 multivitamin-ferrous 2 tablet PO DAILY 03/16/23 09/03/23 fumarate-folic acid 18 mg-400 mcg tablet (Centrum Women) rosuvastatin 10 mg tablet 10 mg PO HS 03/16/23 09/03/23 tolterodine 4 mg capsule,extended 4 mg PO DAILY 03/16/23 09/03/23 release 24 hr (Detrol LA) apixaban 2.5 mg tablet (Eliquis) 5 mg PO BID 08/24/23 09/03/23 Allergies Allergy/AdvReac Type Severity Reaction Status Date / Time No Known Allergies Allergy Verified 09/03/23 08:22 Review of Systems Review of Systems: CONSTITUTIONAL: Denies body aches, fever, chills, or sweats. EYES: Denies visual changes, redness, or discharge. ENT: Denies rhinorrhea, congestion, sore throat, or otalgia. CARDIOVASCULAR: Denies chest pain, palpitations, or edema. RESPIRATORY: Denies cough or dyspnea. GASTROINTESTINAL: Denies abdominal pain, nausea, vomiting, or diarrhea. GENITOURINARY: Denies dysuria or hematuria. SKIN: Denies rash, itching, or wounds. MUSCULOSKELETAL: Left 1st and 2nd finger pain, left wrist pain, left shoulder pain, left rib pain NEUROLOGIC: Denies headache, numbness, tingling, or weakness. PSYCH: Denies depression or anxiety. [facility] Past Medical History Medical History (Updated 09/03/23 @ 10:17 by Jo Espinoza, [facility], ) Arthritis B12 deficiency Chronic anticoagulation COVID-19 GERD without esophagitis Glucose intolerance Graves disease Hyperlipidemia Iron deficiency Memory loss Overactive bladder Paroxysmal atrial fibrillation Restless leg syndrome Small bowel obstruction Spinal stenosis of lumbar region with radiculopathy Vitamin D deficiency Surgical History Surgical History History of colostomy reversal History of colonoscopy complicated by bowel perforation requiring diverting loop ileostomy status post takedown in June 2013. History of hysterectomy History of partial thyroidectomy Family History Family History Mother Family history of cardiovascular disease Sibling Carcinoma of colon Father Cerebrovascular accident 2 strokes, age 94 Sibling Family history of malignant neoplasm Sibling Lung cancer [place]
[2023-09-03] MEDS: ACETAMINOPHEN 500 MG TABLET 1000 MG PO (09:45)
== END 2023-09-03 10:17 | disposition home or self-care (01) ==
PROVIDERS: Emergency Provider Nurse Practitioner; PCP Nurse Practitioner
DX: R07.81 Pleurodynia (principal); S59.912A Unspecified injury of left forearm, initial encounter; S69.92XA Unspecified injury of left wrist, hand and finger(s), initial encounter; W01.0XXA Fall on same level from slipping, tripping and stumbling without subsequent striking against object, initial encounter; I48.0 Paroxysmal atrial fibrillation; Z79.01 Long term (current) use of anticoagulants; K21.00 Gastro-esophageal reflux disease with esophagitis, without bleeding; E05.00 Thyrotoxicosis with diffuse goiter without thyrotoxic crisis or storm; E78.5 Hyperlipidemia, unspecified; G25.81 Restless legs syndrome; M48.061 Spinal stenosis, lumbar region without neurogenic claudication; E55.9 Vitamin D deficiency, unspecified; Z86.16 Personal history of COVID-19; Z90.89 Acquired absence of other organs
CPT/HCPCS: 71101; 73110; 73130; 99214; A9270; G0463

== ENCOUNTER 2023-09-06 10:18 | Outpatient (CLI) | payer MEDICARE, OTHER, SELFPAY ==
--- NOTE | 2023-09-22 16:06 | WPDSLEEPSTUD ---
Sleep Study Date of Study: 09/06/23 Ordering Provider: Shashi Whitaker APRN Interpreting Physician: Ada Medina DO Sleep Study Type: Polysomnogram Height: 1.63 m Weight: 72.575 kg Body Mass Index: 27.4 Neck Circumference (inches): 14 [place]: 15 Reason for Sleep Study Daytime hypersomnia Sleep History The patient is an 83-year-old female with Graves disease, GERD, hyperlipidemia, overactive bladder, paroxysmal atrial fibrillation, restless legs syndrome and spinal stenosis of lumbar spine that had a sleep study ordered by her primary care for evaluation of sleep apnea. The patient denies awakening from sleep short of breath. She frequently awakens at night with heartburn, belching or cough. She occasionally snores loudly enough that others complain. She denies having trouble sleeping when she has a cold. She denies waking up gasping for air throughout the night. She denies having breathing problems at night observed by herself or others. She denies sweating excessively at night. He denies having heart palpitations or irregular heartbeats during the night. She constantly falls asleep during the day but never while driving. She denies cataplexy. She constantly has trouble at school or work due to sleepiness. She constantly feels unable to move while waking up or falling asleep. She rarely experiences vivid dreamlike scenes upon awakening or falling asleep. She denies feeling afraid of going to sleep. She rarely has nightmares. She rarely remembers her dreams. She constantly has thoughts racing through her mind. She denies feeling sad or depressed. She rarely has anxiety. She denies having muscular tension. She constantly notices parts of her body jerk. She constantly kicks during the night. She constantly has crawling and aching feelings in her legs and constantly has leg pain during the night. She denies grinding her teeth during sleep and denies awakening with morning jaw pain. She denies being bothered by pain during the day and denies being awakened by pain during the night. She constantly wakes up feeling stiff in the morning. She constantly wakes up with sore or achy muscles. She rarely wakes up with pain in the neck, spine and other joints. She goes to bed at 7:00 p.m. on both weekdays and weekends. It takes her 1 hour to fall asleep. She wakes up 2-3 times throughout the night for unknown reasons and is able to fall back asleep within a few minutes. She wakes up at 5:00 a.m. on both weekdays and weekends. She typically gets 10 hours of sleep per night. She will stay in bed for 5 minutes after waking up in the morning. She currently lives with her daughter. She denies consuming any caffeinated beverages within 2 hours of bedtime. She denies engaging in physical exercise before bedtime. She will watch television before falling asleep. She will take naps in the afternoon or the evening and they are refreshing. She consumes 4 cups of caffeinated beverage per day. She denies tobacco, alcohol and recreational drug PMFSH Past Medical History Medical History Arthritis B12 deficiency Chronic anticoagulation COVID-19 GERD without esophagitis Glucose intolerance Graves disease Hyperlipidemia Iron deficiency Memory loss Overactive bladder Paroxysmal atrial fibrillation Restless leg syndrome Small bowel obstruction Spinal stenosis of lumbar region with radiculopathy Vitamin D deficiency Surgical History Surgical History History of colostomy reversal History of colonoscopy complicated by bowel perforation requiring diverting loop ileostomy status post takedown in June 2013. History of hysterectomy History of partial thyroidectomy Family History Family History Mother Family history of cardiovascular disease Sibling Carcin
[2023-09-22 16:07] VITALS: BMI 27.4
== END 2023-09-07 07:41 | disposition home or self-care (01) ==
LOC: ANHCSM 10:19
PROVIDERS: PCP Nurse Practitioner; Visit Provider Nurse Practitioner
DX: G47.10 Hypersomnia, unspecified (principal); G47.33 Obstructive sleep apnea (adult) (pediatric); G25.81 Restless legs syndrome
CPT/HCPCS: 95810

== ENCOUNTER 2023-09-13 15:12 | Outpatient (CLI) | payer MEDICARE, OTHER, SELFPAY ==
--- NOTE | ~2023-09-13 | US_ITS ---
EXAMINATION: US thyroid DATE: 09/13/2023 15:45 INDICATION: Thyrotoxicosis TECHNIQUE: Multiple ultrasound images of the thyroid were obtained. COMPARISON: 04/13/2022 FINDINGS: The right thyroid lobe measures 5.8 x 2.1 x 1.6 cm. The left thyroid lobe measures 5.5 x 2.6 x 3.0 c m. Thyroid isthmus measures up to 1 cm in thickness. Heterogeneous echogenicity and coarsened echotex ture throughout the thyroid along with diffuse increased vascular flow on color Doppler. 2.6 cm wider than tall solid isoechoic nodule with smooth to ill-defined margins and without echogenic foci in th e right thyroid lobe (TI-RADS 3, mildly suspicious , FNA if >=2.5 cm, annual followup is >=1.5 cm). IMPRESSION: 1. Enlarged heterogeneous thyroid with coarsened echotexture and diffuse increased vascular flow on c olor Doppler most likely chronic lymphocytic (David) thyroiditis. 2. 2.6 cm TI RADS 3 right thyroid nodule for which ultrasound-guided biopsy would be recommended. Reviewed, dictated and finalized at location A. IMPRESSION: 1. Enlarged heterogeneous thyroid with coarsened echotexture and diffuse increa sed vascular flow on color Doppler most likely chronic lymphocytic (David) thyroiditis. 2. 2.6 cm TI RADS 3 right thyroid nodule for which ultrasound-guided biopsy wou ld be recommended.
== END 2023-09-13 15:13 | disposition home or self-care (01) ==
LOC: ANHIMG 15:14
PROVIDERS: PCP Nurse Practitioner; Visit Provider Nurse Practitioner
DX: E05.00 Thyrotoxicosis with diffuse goiter without thyrotoxic crisis or storm (principal)
CPT/HCPCS: 76536

== ENCOUNTER 2023-09-25 08:12 | Outpatient (CLI) | payer MEDICARE, OTHER, SELFPAY | END 2023-09-25 08:13 | disposition home or self-care (01) | LOC: ANHLAB 08:15 | PROVIDERS: PCP Nurse Practitioner; Visit Provider Nurse Practitioner | DX: M25.511 Pain in right shoulder (principal) | CPT/HCPCS: 36415; 82728 ==

== ENCOUNTER 2023-09-28 09:15 | Outpatient (CLI) | payer MEDICARE, OTHER, SELFPAY ==
[2023-10-05 15:49] VITALS: BMI 27.4
--- NOTE | 2023-10-05 15:49 | WPDSLEEPSTUD ---
Sleep Study Date of Study: 09/28/23 Ordering Provider: Shashi Whitaker APRN Interpreting Physician: Ada Medina DO Sleep Study Type: CPAP Titration Height: 1.63 m Weight: 72.575 kg Body Mass Index: 27.4 Neck Circumference (inches): 14 [place]: 15 Reason for Sleep Study The patient had a polysomnogram on 09/06/2023 that showed an overall AHI of 12.3 with desaturation down to 86%. PLMI of 24.8. Sleep History The patient is an 83-year-old female with Graves disease, GERD, hyperlipidemia, overactive bladder, paroxysmal atrial fibrillation, restless legs syndrome and spinal stenosis of lumbar spine that had a sleep study ordered by her primary care for evaluation of sleep apnea. The patient denies awakening from sleep short of breath. She frequently awakens at night with heartburn, belching or cough. She occasionally snores loudly enough that others complain. She denies having trouble sleeping when she has a cold. She denies waking up gasping for air throughout the night. She denies having breathing problems at night observed by herself or others. She denies sweating excessively at night. He denies having heart palpitations or irregular heartbeats during the night. She constantly falls asleep during the day but never while driving. She denies cataplexy. She constantly has trouble at school or work due to sleepiness. She constantly feels unable to move while waking up or falling asleep. She rarely experiences vivid dreamlike scenes upon awakening or falling asleep. She denies feeling afraid of going to sleep. She rarely has nightmares. She rarely remembers her dreams. She constantly has thoughts racing through her mind. She denies feeling sad or depressed. She rarely has anxiety. She denies having muscular tension. She constantly notices parts of her body jerk. She constantly kicks during the night. She constantly has crawling and aching feelings in her legs and constantly has leg pain during the night. She denies grinding her teeth during sleep and denies awakening with morning jaw pain. She denies being bothered by pain during the day and denies being awakened by pain during the night. She constantly wakes up feeling stiff in the morning. She constantly wakes up with sore or achy muscles. She rarely wakes up with pain in the neck, spine and other joints. She goes to bed at 7:00 p.m. on both weekdays and weekends. It takes her 1 hour to fall asleep. She wakes up 2-3 times throughout the night for unknown reasons and is able to fall back asleep within a few minutes. She wakes up at 5:00 a.m. on both weekdays and weekends. She typically gets 10 hours of sleep per night. She will stay in bed for 5 minutes after waking up in the morning. She currently lives with her daughter. She denies consuming any caffeinated beverages within 2 hours of bedtime. She denies engaging in physical exercise before bedtime. She will watch television before falling asleep. She will take naps in the afternoon or the evening and they are refreshing. She consumes 4 cups of caffeinated beverage per day. She denies tobacco, alcohol and recreational drug PMFSH Past Medical History Medical History Arthritis B12 deficiency Chronic anticoagulation COVID-19 GERD without esophagitis Glucose intolerance Graves disease Hyperlipidemia Iron deficiency Memory loss Overactive bladder Paroxysmal atrial fibrillation Restless leg syndrome Small bowel obstruction Spinal stenosis of lumbar region with radiculopathy Vitamin D deficiency Surgical History Surgical History History of colostomy reversal History of colonoscopy complicated by bowel perforation requiring diverting loop ileostomy status post takedown in June 2013. History of hysterectomy History of partial thyroidectomy Family History Family History (Reviewed
== END 2023-09-29 07:06 | disposition home or self-care (01) ==
LOC: ANHCSM 09:17
PROVIDERS: PCP Nurse Practitioner; Visit Provider Nurse Practitioner
DX: G47.33 Obstructive sleep apnea (adult) (pediatric) (principal); I48.0 Paroxysmal atrial fibrillation; G25.81 Restless legs syndrome
CPT/HCPCS: 95811

== ENCOUNTER 2023-10-20 09:56 | Outpatient (CLI) | payer MEDICARE, OTHER, SELFPAY ==
--- NOTE | ~2023-10-20 | US_ITS ---
EXAMINATION: US FNA w image guidance DATE: 10/20/2023 11:12 INDICATION: Nontoxic single thyroid nodule. TECHNIQUE: The procedure and its benefits and risks were discussed with the patient. Risks specifically discusse d included bleeding. The patient verbalized understanding of the risks and agreed to proceed. The nec k was prepped and draped in the usual sterile manner. 1% lidocaine was used for local anesthesia. 6 passes were made with a 25G needle into the lesion under ultrasound guidance. There were no immedia te complications. FINDINGS: Grayscale ultrasound images demonstrate needles advanced into a 2.6 cm nodule in inferior right thyro id lobe for biopsy. IMPRESSION: 1. Ultrasound-guided fine needle aspiration of a right thyroid nodule. Reviewed, dictated and finalized at location A.
== END 2023-10-20 09:57 | disposition home or self-care (01) ==
LOC: ANHIMG 09:57
PROVIDERS: PCP Nurse Practitioner; Visit Provider Nurse Practitioner
DX: E04.1 Nontoxic single thyroid nodule (principal)
CPT/HCPCS: 10005; 88172; 88173; 88305

== ENCOUNTER 2023-11-30 07:20 | Outpatient (CLI) | payer MEDICARE, OTHER, SELFPAY ==
--- NOTE | ~2023-11-30 | MM_ITS ---
EXAMINATION: MM screening [facility] BI w genna HISTORY: Screening TECHNIQUE: Craniocaudal and mediolateral oblique 3-D tomosynthesis images were obtained and synthetic 2-D images were generated. CAD analysis was submitted and interpreted. COMPARISON: Comparison to multiple prior studies sequentially, with oldest reviewed study dated 07/20. BREAST PARENCHYMAL COMPOSITION: Not dense: There are scattered areas of fibroglandular density. FINDINGS: There is no evidence of suspicious mass, calcification, or architectural distortion to sugg est malignancy in either breast. There has been no suspicious interval change. IMPRESSION: 1. No mammographic evidence of malignancy. 2. Recommend routine screening mammography in one year. BI-RADS Category 1: Negative Reviewed, dictated and finalized at location B.
== END 2023-11-30 07:21 | disposition home or self-care (01) ==
PROVIDERS: PCP Nurse Practitioner; Visit Provider Nurse Practitioner
DX: Z12.31 Encounter for screening mammogram for malignant neoplasm of breast (principal)
CPT/HCPCS: 77063; 77067

== ENCOUNTER 2024-09-05 07:45 | Outpatient (CLI) | payer MEDICARE, OTHER, SELFPAY ==
--- NOTE | ~2024-09-05 | DEXA_ITS ---
Bone Density Report Name: AMINATA MONTALVO I Age: 84 Sex: Female Ethnicity: White Date of : 1940 Indication: osteopenia; hysterectomy; secondary osteoporosis; Referring Provider: WAGNER GONZALEZ Study: Bone densitometry was performed. Exam Date: September 05, 2024 Accession number: [id number] Bone Density: Region BMD T-score Z-score Classification AP Spine(L1-L4) 0.966 -0.7 2.1 Normal Femoral Neck (Left) 0.687 -1.5 1.0 Osteopenia Total Hip (Left) 0.858 -0.7 1.6 Normal Femoral Neck (Right) 0.690 -1.4 1.1 Osteopenia Total Hip (Right) 0.853 -0.7 1.6 Normal Total Hip Mean 0.855 -0.7 1.6 Normal World Health Organization criteria for BMD impression classify patients as: Normal (T-score at or above -1.0), Osteopenia (T-score between -1.0 and -2.5), or Osteoporosis (T-score at or below -2.5). 10-year Fracture Risk(1): Major Osteoporotic Fracture 13% Hip Fracture 3.4% Reported Risk Factors: [place] (), Neck BMD=0.687, BMI=28.1, secondary osteoporosis (1) FRAX(R) Version 3.08. Fracture probability calculated for an untreated patient. Fracture probability may be lower if the patient has received treatment. Previous Exams: Region Exam Age BMD T-score BMD Change BMD Change Date g/cm2 vs Baseline vs Previous AP Spine (L1-L4) 09/05/2024 84 0.966 -0.7 0.062 (6.9%)# 0.062 (6.9%)# 07/20/2018 78 0.904 -1.3 Total Hip(Left) 09/05/2024 84 0.858 -0.7 0.076 (9.8%)# 0.076 (9.8%)# 07/20/2018 78 0.781 -1.3 Total Hip(Right) 09/05/2024 84 0.853 -0.7 0.075 (9.6%)# 0.075 (9.6%)# 07/20/2018 78 0.778 -1.3 *Denotes significance at 95% confidence level, LSC for AP Spine = 0.022 g/cm2, LSC for Total Hip = 0.027 g/cm2 # Denotes dissimilar scan types or analysis methods Clinical Information Provided by Patient: Has secondary osteoporosis Has used the following medications: Fosamax (i.e. alendronate), Vitamin D, Calcium Has the following medical conditions: Hysterectomy Patient maximum height was 64 Menopause Age: 40 Drinks caffeinated beverages Onset of menses at age 14 Number of children 3 Impression: The patient has low bone mass, based on the Left Femoral Neck T-score. The patient has an estimated ten-year risk of hip fracture of 3.4% and an estimated ten-year risk of major fracture of 13%, based on the WHO FRAX algorithm. No significant bone loss was observed. Discussion: BONE DENSITY IS LOW AT ONE OR MORE SKELETAL SITES. THE PATIENT'S BMD AND CLINICAL RISK FACTORS CONTRIBUTE TO THIS PATIENT'S INCREASED RISK OF FRACTURE. This patient's lowest T-score is low at one or more skeletal sites. It meets the World Health Organization's (WHO) criteria for ?low bone mass? (T-score between -1.0 and -2.5). The patient's 10-year risk of hip fracture as calculated by FRAX exceeds the threshold where pharmacological therapy is recommended by the National Osteoporosis Foundation (NOF). However, all treatment decisions require clinical judgment and consideration of individual patient factors, including patient preferences, comorbidities, previous drug use, risk factors not captured in the FRAX model (e.g., frailty, falls, vitamin D deficiency, increased bone turnover, interval significant decline in bone density) and possible under or overestimation of fracture risk by FRAX. The patient should follow a healthful lifestyle (good nutrition with adequate calcium and vitamin D, and appropriate weight-bearing exercise). Follow-Up: Consider a repeat BMD and Vertebral Fracture Assessment (VFA) exam in 2 years or sooner if medically necessary, to reassess this patient's status. Reported by: XENIA on 09/05/2024 8:18:00 AM. Reviewed, dictated and finalized at location [facility]
--- OUTSIDE RECORDS SUMMARY | 2024-09-05 07:49 | XMS_ITS ---
Author Organization Unknown Address [address] [place] [phone] Phone Care Team Providers Care Site Leasing Agent Name Role Phone LUISITO BELL Attending Unavailable Social History Type Status Start Date End Date Code Code Syst em Sex Female Hospital Discharge Instructions Should you have any questions prior to discharge, please contact a member of your healthcare team. If you have left the hospital and have any questions, please contact your primary care physician. Reason For Referral No Data Found Plan of Treatment No Data Found Encounters Encounter Diagnosis Start Date Code Code Sys tem Other chest pain 03/12/2023 SNOMED-CT Personal Care Team Section Performer Name Performer Role Active Date Inactive Da te
--- OUTSIDE RECORDS SUMMARY | 2024-09-05 07:49 | XMS_ITS | Data Portability ---
Author Organization [facility], [place] [facility] Address [address] [place] [address] Care Team Providers Care Director Of Music Therapy Name Role Phone KRISTOPHER HAMPTON Primary Care Provider [phone] Assessment No assessment recorded. Plan of Treatment Reminders Order Date Submit Date Provider Last Modified By Organization Details Last Modified Time Details Appointments None record ed. Lab None record ed. Referral None record ed. Procedures None record ed. Surgeries None record ed. Imaging None record ed. Medication Orders None record ed. Patient TargetsNo targets recorded. Patient InstructionsNo instructions recorded. Reason for Referral None Reported. Problems Name Problem SNOMED Code Status Onset Date Resolution Date Notes Provider Name and Address Organization Details Recorded Time Prolapse of female genital organs 14266251 Active 021 Daly Patricia adamson [facility] 11:50:21 Problem Notes None recorded. Procedures Surgical History Date Name Laterality Status Provider Name and Address Organization Details Recorded Time 09/24/19 21 Pessary Insertion completed Seb Maddox MD [address], [place], [address], [facility] 09/23/2020 11:45:16 06/21/19 16 Date of Last Colonoscopy completed Corina Fenton [facility] 11/03/2023 20:13:04 06/21/19 16 Colonoscopy completed Corina Fenton [facility] 11/03/2023 20:13:30 06/21/19 16 Surgical revision intestine completed Corina Fenton [facility] 11/03/2023 20:15:11 06/21/19 16 Surgical revision intestine completed [facility] 11/03/2023 20:15:13 06/21/19 16 Surgical revision intestine completed [facility] 11/03/2023 20:15:16 06/21/18 72 Total Hysterectomy completed [facility] 11/03/2023 20:13:20 06/21/18 62 Thyroid Surgery completed [facility] 11/03/2023 20:16:18 06/21/18 54 Tonsillectomy completed [facility] 11/03/2023 20:15:42 Imaging Results None recorded. Procedure Notes None recorded. Medical Equipment None Reported. Allergies No known drug allergies Medications Name Sig Start Date Stop Date Status Note LastModified by Organization Details LastModified Time pramipexole 1 mg tablet TAKE 1 TABLET BY MOUTH ONCE DAILY 10/18 completed Not Available Not Available Not Available naproxen 375 mg tablet TAKE 1 TABLET TWICE DAILY NEEDED 08/29 completed Not Available Not Available Not Available tolterodine ER 4 mg capsule,ext ended release 24 hr TAKE 1 CAPSULE DAILY active Not Available Not Available No t Available hydrocodone 5 mg-acetamin ophen 325 mg tablet TAKE 1 TABLET BY MOUTH FOUR TIMES DAILY NEEDED FOR PAIN 08/29 completed Not Available Not Available Not Available prednisone 20 mg tablet TAKE 3 TABLETS BY MOUTH ONCE DAILY WITH FOOD FOR 5 DAYS. TO START ON 8 26 20 08/29 completed Not Available Not Available Not Available alendronate 70 mg tablet active Not Available Not Available Not Available ciprofloxac in 500 mg tablet TAKE 1 TABLET BY MOUTH BILLIE 12 HOURS FOR 7 DAYS 08/29 completed Not Available Not Available Not Available tramadol 50 mg tablet TAKE 1 TABLET BY MOUTH EVERY 12 HOURS NEEDED FOR PAIN active Not Available Not Available No t Available pantoprazol e 20 mg tablet,arnoldo yed release TAKE 1 TABLET BY MOUTH DAILY 08/29 completed Not Available Not Available Not Available methimazole 5 mg tablet TAKE 1 TABLET BY MOUTH EVERY DAY active Not Available Not Available No t Available clindamycin 2 % vaginal cream Insert one applicato rful vaginally at bedtime every day for 5 days 08/29 completed Not Available Not Available Not Available hydroxyzine HCl 25 mg tablet TAKE 1 TABLET BY MOUTH EVERY 6 HOURS NEEDED 08/29 completed Not Available Not Available Not Available cefuroxime axetil 500 mg tablet TAKE 1 TABLET BY MOUTH TWICE DAILY 08/29 completed Not Available Not Available Not Available estradiol 0.01% (0.1 mg/gram) vaginal cream INSERT 1 GRAM VAGINALLY EVERY DAY 08/29 completed Not Available Not Available Not Available diltiazem 30 mg tablet TAKE 1 TABLET BY MOUTH TWICE A DAY FOR 30 DAYS active Not Available Not Available No t Available fluticasone propionate 50 mcg/actuati on nasal spray,suspe nsion USE 2 SPRAY(S) IN EACH NOSTRIL ONCE DAILY active Not Available Not Available No t Available pramipexole 1.5 mg tablet TAKE 1 TABLET BY MOUTH EVERY DAY 08/29 completed Not Available Not Available Not Available clindamycin phosphate 1 % topical solution APPLY 2 DROPS TO PROCEDURE SITE DAILY 08/29 completed Not Available Not Available Not Available cyclosporin e 0.05 % eye drops in a dropperette 03/24 completed Not Available Not Available Not Available rosuvastati n 10 mg tablet active Not Available Not Available Not Available alendronate 70 mg-cholecal ciferol (vitamin D3) 2,800 unit tablet 04/16 completed Not Available Not Available Not Available pramipexole 10/18 completed Not Available Not Available Not Available ferrous sulfate 10/18 completed Not Available Not Available Not Available FeroSul 325 mg (65 mg iron) tablet TAKE 1 TABLET BY MOUTH ONCE DAILY 08/29 completed Not Available Not Available Not Available 0.9 % sodium chloride-de cyl glucoside irrigation solution 08/29 completed Not Available Not Available Not Available loteprednol etabonate 0.5 % eye gel drops INSTILL 1 DROP INTO BOTH EYES EVERY DAY 03/24 completed Not Available Not Available Not Available Eliquis 5 mg tablet active Not Available Not Available No t Available Eliquis 2.5 mg tablet TAKE 1 TABLET BY MOUTH EVERY 12 HOURS 08/29 completed Not Available Not Available Not Available Xiidra 5 % eye drops in a dropperette INSTILL 1 DROP INTO BOTH EYES TWICE A DAY active Not Available Not Available No t Available Vitals Date Recorded Body height Body mass index (BMI) Body weight Systolic blood pressure Diastolic blood pressure Provider Name and Address Organization Details Last Updated DateTime 08/30/2023 165.1 cm 27.6 kg/m2 84619.33 g 143 mm[Hg] 75 mm[Hg] Corina Fenton [facility] 4 09:42:39 Date Recorded Body height Body mass index (BMI) Body weight Systolic blood pressure Diastolic blood pressure Provider Name and Address Organization Details Last Updated DateTime 11/29/2023 165.1 cm 27 kg/m2 47468.96 g 149 mm[Hg] 76 mm[Hg] Evelyn Nolasco [facility] 4 09:28:51 Date Recorded Body height Body mass index (BMI) Body weight Systolic blood pressure Diastolic blood pressure Provider Name and Address Organization Details Last Updated DateTime 02/28/2024 165.1 cm 27.1 kg/m2 15625.56 g 144 mm[Hg] 76 mm[Hg] Corina Fenton [facility] 4 09:37:45 Date Recorded Body height Body mass index (BMI) Body weight Systolic blood pressure Diastolic blood pressure Provider Name and Address Organization Details Last Updated DateTime 03/24/2024 165.1 cm 27 kg/m2 33121.4 g 118 mm[Hg] 69 mm[Hg] Christina Omayra [facility] 4 09:38:22 Date Recorded Body height Body mass index (BMI) Body weight Systolic blood pressure Diastolic blood pressure Provider Name and Address Organization Details Last Updated DateTime 04/29/2024 165.1 cm 27.3 kg/m2 30917.15 g 122 mm[Hg] 72 mm[Hg] Jody Walker [facility] 4 09:41:15 Social History Question Answer Notes LastModified by Organizat ion Details LastModified Time Tobacco Smoking Status Unknown If Ever Smoked Corina Fenton [facility] 02/28/2024 09:38:53 Do You Have An Advance Directive? No Information not available 09/23/2020 What Is Your Level Of Alcohol Consumption? None Information not available 09/23/2020 Are You Blind Or Do You Have Difficulty Seeing? No Information not available 09/23/2020 What Is Your Level Of Caffeine Consumption? Occasional [email or web address] Information not available 02/28/2024 In The 14 Days Before Symptom Onset, Have You Had Close Contact With A Laboratory-confir med COVID-19 While That Case Was Ill? No Information not available 09/23/2020 In The 14 Days Before Symptom Onset, Have You Had Close Contact With A Person Who Is Under Investigation For COVID-19 While That Person Was Ill? No Information not available 09/23/2020 Have You Been To An Area Known To Be High Risk For COVID-19? No Information not available 09/23/2020 Are You Deaf Or Do You Have Serious Difficulty Hearing? No Information not available 09/23/2020 What Type Of Diet Are You Following? REGULAR Information not available 09/23/2020 What Is The Highest Grade Or Level Of School You Have Completed Or The Highest Degree You Have Received? [id number] Information not available 09/23/2020 What Is Your Occupation? Retired Information not available 09/23/2020 Are There Any Guns Present In Your Home? No Information not available 09/23/2020 Do You Use Your Seat Belt Or Car Seat Routinely? Yes Information not available 09/23/2020 Do You Have Smoke And Carbon Monoxide Detectors In Your Home? No Information not available 09/23/2020 How Much Tobacco Do You Smoke? No Information not available 09/23/2020 Do You Feel Stressed (tense, Restless, Nervous, Or Anxious, Or Unable To Sleep At Night)? [id number] Information not available 09/23/2020 Do You Use Any Illicit Or Recreational Drugs? No Information not available 09/23/2020 Do You Use Sunscreen Routinely? Yes Information not available 09/23/2020 Have You Used IV Drugs? No Information not available 09/23/2020 Do You Or Have You Ever Used Any Other Forms Of Tobacco Or Nicotine? No Information not available 02/28/2024 Sex: Unknown Functional Status Question Answer Note LastModified by Organizat ion Details LastModified Time Do you have difficulty walking or climbing stairs? No [email or web address] Information not available 11/29/2023 Are you able to walk? YESWOREST Information not available 09/23/2020 Are you able to care for yourself? Yes Information not available 11/29/2023 Do you have difficulty dressing or bathing? No Information not available 11/29/2023 What is your exercise level? Heavy Information not available 09/23/2020 Mental Status None recorded. Family History Nothing Reported. Medical History Condition Response Allergies (Food, seasonal, environmental ) N Other N Breast Cancer N Drug/Latex Allergies/Reactions N Blood Transfusion N Dermatologic Disorders N Lung Disease N Defects or Inherited Disease N Breast Problem N Gestational Diabetes N Hematologic disorders N Anesthesia Complications N History of STI N Deep Vein Thrombosis N Polycystic ovary syndrome N Anxiety Disorder Y Autoimmune disease N Arthritis N Infertility N Polyps N Acid Reflux (GERD) Y History of abnormal pap N Cancer N Stroke N Varicosities N Neurologic/Epilepsy N Endometriosis N High Cholesterol Y Headaches N Fibromyalgia N Kidney Disease N Heart Problems Y Kidney or Bladder Problems Y Thyroid Problems Y GI Problems Y Eating Disorder N Anemia N Art (IVF or FET) N Psychiatric Illness N Ovarian Cancer N Diabetes N Pulmonary (TB, Asthma) N Hepatitis/Liver Disease N No Past Medical History N Eczema N Urinary Tract Infection N Abuse/Domestic Violence N Asthma N Trauma/Violence N Depression/ depression Y Heart Disease N Pre-Eclampsia N Hypertension Y Osteoporosis Y Thrombophilias N Gynecological History Statement/Question Response Date of Last Mammogram Date of Last Colonoscopy 06/21/2015 Date of LMP 06/21/1971 STIs/STDs N Date of DEXA bone scan Date of Last Pap Smear Current Control Method Hysterectom y Obstetrics History GPAL:G 3 P 3 0 0 3 Type Value Full Term 3 Living 3 Total 3 Past Encounters Encounter ID Performer Location Encounter Start Date Encounter Closed Date Diagnosis/Indication Diagnosis SNOMED-CT Code Diagnosis ICD10 Code Diagnosis Note [id number] Seb Maddox MD [facility] [address] [address] 09/23/2020 10:49:05 09/23/2020 11:46:54 Prolapse of female genital organs 38427150 N81.9 This patient is 80-year-ol d female with pelvic organ prolapse. She has urinary symptoms associated with prolapse. She is not appear bladder well. A 2-1/2 inch ring with support was inserted. She tolerated it well. She will follow up in 1 week. [id number] Seb Maddox MD [facility] [address] [address] 10/04/2020 09:50:51 10/04/2020 10:29:22 Prolapse of female genital organs 96649429 N81.9 this patient is an 80-year-ol d female with pelvic organ prolapse and urinary symptoms. We inserted a 2-1/2 inch ring with support. It was examined today. It is pushing against the sides of the vaginal vault. I have concern about erosion or ulcers there. We agreed to try 2-1/4 inch. The 2-1/[address]. She will return in 2 weeks to trial the 2 and a inch ring with support. she states that her urinary symptoms are much improved. That she does not leak. She empties well. She does not have to wear pads. [id number] Seb Maddox MD [facility] [address],[place] [address] 10/18/2020 09:56:13 10/18/2020 10:58:07 Prolapse of female genital organs 43864734 N81.9 Urge incon tinence of urine 41300823 N39.41 this patient is an 80-year-ol d female who presents for follow-up on pessary insertion. She had a 2-1/2 inch ring with support. I felt it was kind of a tight fit and pushed on the sides. She says that it is comfortabl e. She is voiding more easily. She does have some urinary urge. We talked about treatment of urge. We agreed to a trial of Detrol or Ditropan. We removed the 2-1/2 inch pessary. It was pushing tightly against the sides of the vagina. It was replaced with a 2-1/4 inch ring with support. It was a good fit. It can be removed easily. so, hopefully stays in, it is positioned fairly high. We will observe. To start a trial of Detrol. She return in 1 month. [id number] Seb Maddox MD [facility] [address] [address] 12/02/2020 11:35:56 12/02/2020 12:30:06 Urgent desire to urinate [id number] R39.15 Prolapse o f female genital organs 90359879 N81.9 This patient is a 80 y/o female who presents for pessary check. She has no complaints with respect to pessary and its performanc e. The pessary was removed and cleaned. The vagina was examined and found to be normal: no ulceration or erosion. The pessary was replaced. The patient agreed to RTC in 3 months. patient did get some results with the Anticholin ergic bladder medication . She would like to continue the medication . [id number] Seb Maddox MD [facility] [address],[place] [address] 03/06/2021 09:09:04 03/06/2021 10:19:43 Prolapse of female genital organs 15295200 N81.9 this patient is an 80-year-ol d female presents for pessary check. She is also here for medication follow-up. She had a trial of Detrol. She stated the urge has resolved. She is very satisfied with Detrol. She states that the pessary comes to the introitus and bulges out when She states and to use the bathroom. She pushes the pessary back up. She has says it does not fall out. She states that it does not bother her too much and she is willing to proceed in the current fashion. The pessary was removed. She was examined. It was cleaned and replaced. There is an abrasion on the vagina in the right fornix. We agreed to estradiol vaginally for 1 month. She will follow-up in 3 months. [id number] Seb Maddox MD [facility] [address],[place] [address] 06/06/2021 09:18:24 06/06/2021 12:29:41 Prolapse of female genital organs 47442881 N81.9 This patient is a 81 y/o female who presents for pessary check. She has no complaints with respect to pessary and its performanc e. The pessary was removed and cleaned. The vagina was examined and found to be normal: no ulceration or erosion. The pessary was replaced. The patient agreed to RTC in 3 months. [id number] Seb Maddox MD [facility] [address],[place] [address] 09/04/2021 09:45:35 09/04/2021 10:57:40 Prolapse of female genital organs 61712857 N81.9 this patient is an 81 year female who presents for pessary check. She has no complaints with respect to pessary and its performanc e. The pessary was removed and cleaned. The vagina was examined and found to be normal: no ulceration or erosion. The pessary was replaced. The patient agreed to RTC in 3 months. [id number] Seb Maddox MD [facility] [address],[place] [address] 10/30/2021 09:09:14 10/30/2021 09:54:56 Prolapse of female genital organs 75261873 N81.9 this patient is an 81 year female who presents for pessary check. She has no complaints with respect to pessary and its performanc e. The pessary was removed and cleaned. The vagina was examined and found to be normal: no ulceration or erosion. The pessary was replaced. The patient agreed to RTC in 3 months. foul-smell ing dark vaginal discharge. Treat with vaginal antibiotic s for 5 days. [id number] MD Feliberto Fitzpatrick [address],[place] [address] 01/29/2022 09:05:18 01/29/2022 09:51:32 Prolapse of female genital organs 10754305 N81.9 This patient is a 81 y/o female who presents for pessary check. She has no complaints with respect to pessary and its performanc e. The pessary was removed and cleaned. The vagina was examined and found to be normal: no ulceration or erosion. The pessary was replaced. The patient agreed to RTC in 3 months. [id number] Seb Maddox MD [facility] [address],[place] [address] 03/23/2022 11:39:44 03/24/2022 10:25:03 Abnormal vaginal bleeding 264685314 N93.9 this patient is an 82-year-ol d female with some vaginal bleeding. She has pelvic organ prolapse and has a pessary in. Pessary is removed today. The vagina was examined. There is some abraded areas that were erythemato us. No ulcers per se. We agreed to leave the pessary out and treat the vagina with estrogen. We spent over 20 minutes face-to-fa ce. More than 20% was counseling . Vaginal ulcer 47540447 N 76.5 [id number] Seb Maddox MD [facility] [address],[place] [address] 04/23/2022 10:19:50 04/24/2022 14:47:22 Prolapse of female genital organs 07503450 N81.9 82-year-ol d female presents for pessary check. The patient was examined. The pessary was not present. It apparently had fallen out and was a noticed. Patient complained of no symptoms. she has noticed nothing bulging from the of vagina. We agreed to observe. [id number] Seb Maddox MD [facility] [address],[place] [address] 06/03/2022 14:00:19 06/04/2022 12:29:20 Prolapse of female genital organs 42216434 N81.9 this patient is a 82-year-ol d female with pelvic organ prolapse. We had removed her pessary because of some mild trauma to the vaginal mucosa. We will of vaginal mucosa to heal. It appears well healed today. We replaced the pessary. Is a 2-1/4 inch ring with support. She will follow-up in 3 months. She has no other complaints . [id number] Seb Maddox MD [facility] [address],[place] [address] 08/31/2022 11:02:59 08/31/2022 12:12:35 Prolapse of female genital organs 71962314 N81.9 This patient is a 82 y/o female who presents for pessary check. She has no complaints with respect to pessary and its performanc e. The pessary was removed and cleaned. The vagina was examined and found to be normal: no ulceration or erosion. The pessary was replaced. The patient agreed to RTC in 3 months. [id number] Seb Maddox MD [facility] [address] [address] 11/30/2022 10:02:30 11/30/2022 11:06:40 Prolapse of female genital organs 27809446 N81.9 This patient is a 82 y/o female who presents for pessary check. She has no complaints with respect to pessary and its performanc e. The pessary was removed and cleaned. The vagina was examined and found to be normal: no ulceration or erosion. The pessary was replaced. The patient agreed to RTC in 3 months. [id number] Seb Maddox MD [facility] [address] [address] 03/01/2023 10:10:00 03/01/2023 14:44:09 Prolapse of female genital organs 50520684 N81.9 This patient is a 82 y/o female who presents for pessary check. She has no complaints with respect to pessary and its performanc e. The pessary was removed and cleaned. The vagina was examined and found to be normal: no ulceration or erosion. The pessary was replaced. The patient agreed to RTC in 3 months. [id number] Seb Maddox MD [facility] [address],[place] [address] 05/31/2023 10:27:04 05/31/2023 12:14:20 Prolapse of female genital organs 25720243 N81.9 This patient is a 82 y/o female who presents for pessary check. She has no complaints with respect to pessary and its performanc e. The pessary was removed and cleaned. The vagina was examined and found to be normal: no ulceration or erosion. The pessary was replaced. The patient agreed to RTC in 3 months. [id number] Seb Maddox MD [facility] [address],[place] [address] 08/30/2023 09:11:32 08/30/2023 10:59:34 Prolapse of female genital organs 24122864 N81.9 This patient is a 82 y/o female who presents for pessary check. She has no complaints with respect to pessary and its performanc e. The pessary was removed and cleaned. The vagina was examined and found to be normal: no ulceration or erosion. The pessary was replaced. The patient agreed to RTC in 3 months. [id number] Seb Maddox MD [facility] [address] [address] 11/29/2023 09:08:00 11/29/2023 11:26:56 Prolapse of female genital organs 09866958 N81.9 This patient is a 82 y/o female who presents for pessary check. She has no complaints with respect to pessary and its performanc e. The pessary was removed and cleaned. The vagina was examined and found to be normal: no ulceration or erosion. The pessary was replaced. The patient agreed to RTC in 3 months. [id number] Seb Maddox MD [facility] [address] [address] 02/28/2024 09:28:19 02/28/2024 17:53:14 Pessary care [id number] Z46.89 a 3-year-old female with pelvic organ prolapse presents for pessary check. The patient reports bleeding. The pessary was removed. There was some dalia blood, bright red blood in the vaginal vault. The extent of the trauma could not be fully appreciate d. It appears it has eroded to the point of bleeding. We will give it a chance to heal by removing the pessary for 1 month and giving her vaginal estrogen. Spent over 20 minutes On the patient's care in total. [id number] Seb Mdadox MD [facility] [address],[place] [address] 03/24/2024 09:20:02 03/27/2024 16:56:19 Prolapse of female genital organs 16045932 N81.9 84-year-ol d female presents for follow-up on pelvic organ prolapse and pessary care. The pessary be removed for 1 month for observatio n to allow healing of the vaginal sulcus. she was examined. There was still some erythema and inflammati on. We agreed to 1 more month of observatio n. She will return in 1 month. We will consider placing the pessary again. [id number] Seb Maddox MD [facility] [address] [address] 04/29/2024 09:29:12 04/29/2024 11:08:17 Prolapse of female genital organs 50573508 N81.9 84-year-ol d female with pelvic organ prolapse. She has had her pessary out for 2 months to allow the vagina to heal. She has had minimal prolapse symptoms. She occasional ly can feel the prolapse at the introitus when she is sitting to go to the bathroom. We agreed to leave the pessary out. We will observe her symptoms and consider replacemen t of the pessary if her symptoms worsen. Health Concerns Section Related Observation LastModified by Organization Detai ls LastModified Time None Recorded Concern Status LastModified by Organization Details LastModified Time None Recorded Advance Directives Directive N: Payers Encounter Date Sequence Insurance Name Policy Number Policy Pierce Covered Member ID Pierce Member ID Guarantor Name 08/30/2023 1 [place] Venessa I Ruffaner [id number] Venessa Ruffaner 08/30/2023 2 [place] - FOR LIFE (MEDICARE SUPPLEMENT) Venessa Ruffaner [id number] Venessa Ruffaner 11/29/2023 1 [place] Venessa I Ruffaner [id number] Venessa Ruffaner 11/29/2023 2 WPS - FOR LIFE (MEDICARE SUPPLEMENT) Venessa Ruffaner [id number] Venessa Ruffaner 02/28/2024 1 [place] Venessa I Brayananer [id number] Venessa Ruffaner 02/28/2024 2 WPS - FOR LIFE (MEDICARE SUPPLEMENT) Venessa Ruffaner [id number] Venessa Ruffaner 03/24/2024 1 [place] Venessa I Ruffaner [id number] Venessa Ruffaner 03/24/2024 2 [place]PS - FOR LIFE (MEDICARE SUPPLEMENT) Venessa Ruffaner [id number] Venessa Ruffaner 04/29/2024 1 [place] Venessa I Brayananer [id number] Venessa Ruffaner 04/29/2024 2 WPS - FOR LIFE (MEDICARE SUPPLEMENT) Venessa Ruffaner [id number] Venessa Ruffaner Notes Date Note Type Note Provider Name and Address Organization Details Recorded Time 08/30/2023 text/html This patient is a 82 y/o female who presents for pessary check. She has no complaints with respect to pessary and its performance. The pessary was removed and cleaned. The vagina was examined and found to be normal: no ulceration or erosion. The pessary was replaced. The patient agreed to RTC in 3 months. Seb Maddox MD [address], [place], [address], [facility] 08/30/2023 10:47:08 11/29/2023 text/html This patient is a 82 y/o female who presents for pessary check. She has no complaints with respect to pessary and its performance. The pessary was removed and cleaned. The vagina was examined and found to be normal: no ulceration or erosion. The pessary was replaced. The patient agreed to RTC in 3 months. Seb Maddox MD [address], [place], [address], [facility] 11/29/2023 11:25:23 02/28/2024 text/html a 3-year-old female with pelvic organ prolapse presents for pessary check. The patient reports bleeding. The pessary was removed. There was some dalia blood, bright red blood in the vaginal vault. The extent of the trauma could not be fully appreciated. It appears it has eroded to the point of bleeding. We will give it a chance to heal by removing the pessary for 1 month and giving her vaginal estrogen. Spent over 20 minutes On the patient's care in total. Seb Maddox MD [address], [place], [address], [facility] 02/28/2024 17:44:11 03/24/2024 text/html 84-year-old clemencia black presents for follow-up on pelvic organ prolapse and pessary care. The pessary be removed for 1 month for observation to allow healing of the vaginal sulcus. she was examined. There was still some erythema and inflammation. We agreed to 1 more month of observation. She will return in 1 month. We will consider placing the pessary again. Seb Maddox MD [address], [place], [address], [facility] 03/27/2024 15:18:18 04/29/2024 text/html 84-year-old clemencia black with pelvic organ prolapse. She has had her pessary out for 2 months to allow the vagina to heal. She has had minimal prolapse symptoms. She occasionally can feel the prolapse at the introitus when she is sitting to go to the bathroom. We agreed to leave the pessary out. We will observe her symptoms and consider replacement of the pessary if her symptoms worsen. Seb Maddox MD [address], [place], [address], [facility] 04/29/2024 10:54:14 OBGyn Episode Ob Episode Information Episode Created Date Number of Fetuses Patient Bloodtype Patient rh Status Prepregnancy Weight lbs Domestic Partner Domestic Partner Phone Father Name Maintenance Porter Status 09/24/19 21 1 CLOSED Fetus Data First Name Last Name Admitted to NICU Weight (g) Sex Living Outcome Pediatric Complications Fetus ID Race Codes Race Delivery Type 3316.66 4704 F Full Term 8809 Vaginal Delivery Last Calculation Initial Last Date Initial Exam Date Initial Exam Provider Initial Ultrasound Date Last Menstrual Period Date Ultra Sound Weeks Gestation 0 Eighteen To Twenty Week Last Update Ultra Sound Date Fundal Height At Umbil Quickening Date Ultra Sound Latest Weeks Gestation Final Last Confirmed By Final Last Confirmed Date Final Last Date Ultra Sound Latest Days Gestation 0 0 Menstrual History Last Menstrual Date Menses Monthly On Bcp Conception Prior Menses Frequency Hcg Plus Date Menarche Onset Age Delivery Information Delivery Date Delivery Type Labor Anesthesia Weeks Gestation Incision Type Labor Labor Length Hrs Delivered By Post Complications Tubal Sterilization Discharge Date Comments 7 Debra Discharge Information Feeding Method Contraceptive Method Maternal HG B and HCT Levels Ob Episode Information Episode Created Date Number of Fetuses Patient Bloodtype Patient rh Status Prepregnancy Weight lbs Domestic Partner Domestic Partner Phone Father Name Maintenance Porter Status 11/03/19 24 1 CLOSED Fetus Data First Name Last Name Admitted to NICU Weight (g) Sex Living Outcome Pediatric Complications Fetus ID Race Codes Race Delivery Type 2721.55 2 F Full Term [id number] Vaginal Delivery Last Calculation Initial Last Date Initial Exam Date Initial Exam Provider Initial Ultrasound Date Last Menstrual Period Date Ultra Sound Weeks Gestation 0 Eighteen To Twenty Week Last Update Ultra Sound Date Fundal Height At Umbil Quickening Date Ultra Sound Latest Weeks Gestation Final Last Confirmed By Final Last Confirmed Date Final Last Date Ultra Sound Latest Days Gestation 0 0 Menstrual History Last Menstrual Date Menses Monthly On Bcp Conception Prior Menses Frequency Hcg Plus Date Menarche Onset Age Delivery Information Delivery Date Delivery Type Labor Anesthesia Weeks Gestation Incision Type Labor Labor Length Hrs Delivered By Post Complications Tubal Sterilization Discharge Date Comments 9 Discharge Information Feeding Method Contraceptive Method Maternal HG B and HCT Levels Ob Episode Information Episode Created Date Number of Fetuses Patient Bloodtype Patient rh Status Prepregnancy Weight lbs Domestic Partner Domestic Partner Phone Father Name Maintenance Porter Status 11/03/19 24 1 CLOSED Fetus Data First Name Last Name Admitted to NICU Weight (g) Sex Living Outcome Pediatric Complications Fetus ID Race Codes Race Delivery Type 4422.52 2 M Full Term [id number] Vaginal Delivery Last Calculation Initial Last Date Initial Exam Date Initial Exam Provider Initial Ultrasound Date Last Menstrual Period Date Ultra Sound Weeks Gestation 0 Eighteen To Twenty Week Last Update Ultra Sound Date Fundal Height At Umbil Quickening Date Ultra Sound Latest Weeks Gestation Final Last Confirmed By Final Last Confirmed Date Final Last Date Ultra Sound Latest Days Gestation 0 0 Menstrual History Last Menstrual Date Menses Monthly On Bcp Conception Prior Menses Frequency Hcg Plus Date Menarche Onset Age Delivery Information Delivery Date Delivery Type Labor Anesthesia Weeks Gestation Incision Type Labor Labor Length Hrs Delivered By Post Complications Tubal Sterilization Discharge Date Comments 5 Discharge Information Feeding Method Contraceptive Method Maternal HG B and HCT Levels
--- OUTSIDE RECORDS SUMMARY | 2024-09-05 07:49 | XMS_ITS | Referral Summary ---
Author Organization [facility] Address [address] [place] [address] Care Team Providers Care Pattern Puncher Name Role Phone Rolando Spears MD Primary Care Provider [phone] Allergies No known active allergies Medications alendronate (FOSAMAX) 70 mg tablet Take 1 tablet (70 mg total) by mouth every 7 days Take in the morning with a full glass of water, on an empty stomach, and do not take anything else by mouth or lie down for the next 30 min. Active multivitamin capsule Take 1 capsule by mouth daily Active traMADol (ULTRAM) 50 mg tablet 1 05/30/20 18 Active cycloSPORINE (RESTASIS) 0.05 % ophthalmic emulsion 1 drop 2 (two) times a day Active fluticasone propionate (FLONASE) 50 mcg/actuation nasal spray 04/18/20 22 Active methIMAzole (TAPAZOLE) 5 mg tablet Take 1 tablet (5 mg total) by mouth daily 05/18/20 22 Active Detrol LA 4 mg 24 hr capsule 05/09/20 22 Active rosuvastatin (CRESTOR) 10 mg tablet 02/17/20 23 Active vitamin D3-vitamin K2 25 mcg (1,000 unit)-90 mcg tablet,disintegrati ng Take by mouth Active antiox #8/om3/dha/epa/lut/ zeax (PRESERVISION AREDS 2, OMEGA-3, ORAL) Take by mouth Active Xiidra 5 % dropperette 11/04/19 24 Active apixaban (Eliquis) 5 mg tabletIndications:P aroxysmal atrial fibrillation (HCC),Chronic anticoagulation TAKE 1 TABLET TWICE A DAY 180 tablet 2 02/22/20 24 Active dilTIAZem (CARDIZEM) 30 mg tabletIndications:P aroxysmal atrial fibrillation (HCC) TAKE 1 TABLET TWICE A DAY MAY TAKE AN EXTRA 1 TABLET IF NEEDED FOR EPISODES OF ATRIAL FIBRILLATION 180 tablet 3 05/11/20 24 Active Active Problems Problem Noted Date Diagnosed Date 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 Recommend follow up of the Incidental lung nodule in 6 or 12 months with low-dose chest CT. Malignant neoplasm screen 06/07/2018 Overview (06/07/2018): Added automatically from request for surgery [id number] Screen for colon cancer 05/26/2018 Overview (05/26/2018): Added automatically from request for surgery [id number] Abdominal pain, lower 04/26/2018 Social History Tobacco Use Types Packs/Day Years Used Date Smoking Tobacco: Never Smokeless Tobacco: Never Tobacco Cessation:Counseling Given: Not Answered Alcohol Use Standard Drinks/Week Comments No 0 (1 standard drink = 0.6 oz pur e alcohol) Personal Safety Answer Date Recorded Getting School Help Needed Not on file 08/19 Comments No Sex and Gender Information Value Date Recorded Sex Assigned at Not on file Legal Sex Female 10:18 AM CDT Gender Identity Not on file Sexual Orientation Not on file Last Filed Vital Signs Vital Sign Reading Time Taken Comments Blood Pressure 126/62 11/24/2023 8:50 AM CDT Pulse 72 11/24/2023 8:50 AM CDT Temperature 36.3 C (97.4 F) 07/19/2018 3:14 PM METAL ROOFER Respiratory Rate 18 06/30/2018 2:00 PM METAL ROOFER Oxygen Saturation 97% 11/24/2023 8:50 AM CDT Inhaled Oxygen Concentration - - Weight 73.5 kg (162 lb) 11/24/2023 8:50 AM CDT Height 162.6 cm (5' 4 ) 11/24/2023 8:50 AM CDT Body Mass Index 27.81 11/24/2023 8:50 AM CDT Plan of Treatment Not on file Insurance [employer] MEDICARE [employer] MEDICARE [facility] Address: [facility] [address] [place] [address] [facility] Advance Directives For more information, please contact: [phone] * Full Code (Latest Code Status on File) Date Activated Date Inactivated Comments 06/30/2018 12:34 PM 06/30/2018 4:50 PM * Full Code Date Activated Date Inactivated Comments 06/11/2018 9:21 AM 06/14/2018 8:22 PM Care Teams Pattern Puncher Relationship Specialty Start Date End Date Rolando Spears MD PCP - General Family Practice 04/28/23
--- OUTSIDE RECORDS SUMMARY | 2024-09-05 07:49 | XMS_ITS | Clinical Summary ---
Author Organization [facility] Address [address] [place] [address] Care Team Providers Care Professor Of Environmental Science Name Role Phone Rolando Spears MD Primary Care Provider [phone] Allergies No known active allergies Medications alendronate [...] (06/07/2018): Added automatically from request for surgery [id number] Screen for colon cancer 05/26/2018 Overview (05/26/2018): Added automatically from request for surgery [id number] Abdominal pain, lower 04/26/2018 Surgical History Surgery Date Site/Laterality Comments HYSTERECTOMY 06/21/1985 - 06/20/1986 EXPLORATORY LAPAROTOMY 04/21/2012 - 05/20/2012 Bowel resection, diverting ileostomy ILEOSTOMY CLOSURE 06/21/2013 - 07/21/2013 Complicated by stricture, bowel obstructions. COLONOSCOPY 06/21/2011 - 06/20/2012 Complicated by perforation Medical History Medical History Date Comments RLS (restless legs syndrome) Family History Medical History Relation Name Comments Lung cancer Brother Colon cancer Sister Relation Name Status Comments Brother Sister Social History Tobacco Use Types Packs/Day Years [...] on file Sexual Orientation Not on file Obstetrics History Last Filed Vital Signs Vital Sign Reading Time Taken Comments Blood Pressure 126/62 11/24/2023 8:50 AM CDT Pulse 72 11/24/2023 8:50 AM CDT Temperature 36.3 C (97.4 F) 07/19/2018 3:14 PM TRAVEL REGISTERED NURSE NICU Respiratory Rate 18 06/30/2018 2:00 PM TRAVEL REGISTERED NURSE NICU Oxygen Saturation 97% 11/24/2023 8:50 AM CDT Inhaled Oxygen Concentration - - Weight 73.5 kg (162 lb) 11/24/2023 8:50 AM CDT Height 162.6 cm (5' 4 ) 11/24/2023 8:50 AM CDT Body Mass Index 27.81 11/24/2023 8:50 AM CDT Plan of Treatment Health Maintenance Due Date Last Done Comments Depression Screening 1940 Fall Risk Assessment 1940 Osteoporosis Screening-Bone Density Scan 1940 Hepatitis B Screening 1958 Well Visit 65+ 2005 Pneumococcal vaccine 65+ (2 of 2 - PPSV23) 03/12/2021 03/12/2020 Covid-19 Vaccine ( - 2023-2 5 season) 2024 03/04/2022, 04/02/2021, 09/02/2020, Additional history exists Influenza Vaccine (#1) 2024 , 2021, 03/12/2020, Additional history exists DTaP/Tdap/Td Vaccine (2 - Td or Tdap) 03/12/2030 03/12/2020 Zoster Vaccine Completed 06/21/2018, 03/06/2018 [place] [address] [employer] MEDICARE Member Subscriber Plan / Payer ( fective 2005-Present) Name:Venessa Gifford Member ID:[id number] Relation to Subscriber:Self Name:Venessa Gifford Subscriber ID:[id number] Payer ID:[id number] Group ID:Not on file Type:MEDICARE TRADITIONAL Address: [place] [id number] [facility] Member Subscriber Plan / Payer ( fective 2005-Present) Name:Venessa Gifford Member ID:[id number] Relation to Subscriber:Self Name:BrayankleberVenessa Subscriber ID:[id number] Payer ID:[id number] Group ID:Not on file Type:MEDICARE TRADITIONAL Address: [place] [id number] [employer] Advance Directives For more information, please contact: [phone] * Full Code (Latest Code Status on File) Date Activated Date Inactivated Comments 06/30/2018 12:34 PM 06/30/2018 4:50 PM * Full Code Date Activated Date Inactivated Comments 06/11/2018 9:21 AM 06/14/2018 8:22 PM Care Teams Professor Of Environmental Science Relationship Specialty Start Date End Date Rolando Spears MD PCP - General Family Practice 04/28/23
--- OUTSIDE RECORDS SUMMARY | 2024-09-05 07:49 | XMS_ITS ---
Author Organization Unknown Address [address] [place] [phone] Phone Care Team Providers Care Inspector [employer] Wafer Name Role Phone LIUSITO BELL Attending Unavailable [facility] Secondary Unavailable Results TROPONIN T, 2 HOUR, 5TH GEN - Collect Date/Time: 03/12/2023 20:25 [facility] [id number] [address] [place] [address], [phone] LOINC: 6598-7 Test Value Unit Reference Range Code Code System Flag TROPONIN T, 2 HR 9 ng/L L=0 H=10 DELTA 2HR TROPONIN T 1 ng/L L=-3 H=3 URINALYSIS - Collect Date/Ti me: 03/12/2023 19:48 [facility] [id number] [address] [place] [address], [phone] LOINC: 71804-8 Test Value Unit Reference Range Code Code System Flag SPECIMEN TYPE: CLEAN CATCH CC Kit Chg? YES U COLOR YELLOW NORMAL: YELLOW 6824-7 LOINC U CLARITY CLEAR NORMAL: CLEAR 20899-9 LOINC U GLUCOSE NEGATIVE NORMAL: NEGATIVE 46786-3 LOINC U BILIRUBIN NEGATIVE NORMAL: NEGATIVE 28565-5 LOINC U KETONE NEGATIVE NORMAL: NEGATIVE 65163-5 LOINC U SP GRAVITY 1.010 1.015 - 1.025 48227-8 LOINC A U BLOOD NEGATIVE NORMAL: NEGATIVE 09721-1 LOINC U pH 6.5 5.0 - 8.0 29873-0 LOINC U PROTEIN NEGATIVE NORMAL: NEGATIVE 17522-5 LOINC UROBILINOGEN 0.2 0-1 E.U./dL 37097-1 LOINC U NITRITE NEGATIVE NORMAL: NEGATIVE 76471-6 LOINC U LEUKOCYTES NEGATIVE NORMAL: NEGATIVE Microscopic NOT PERFORMED BNP (NT pro-BNP) - Collect D ate/Time: 03/12/2023 18:15 [facility] [id number] [address] [place] [address], [phone] LOINC: 22622-6 Test Value Unit Reference Range Code Code System Flag NT proBNP 228 pg/ml L=0 H=450 18580-9 LOINC TROPONIN T, BASELINE, 5TH GE N w/REFLEX - Collect Date/Time: 03/12/2023 18:15 [facility] ID: [id number] [address] [place] [address], [phone] LOINC: 6598-7 Test Value Unit Reference Range Code Code System Flag TROPONIN T BASELINE 8 ng/L L=0 H=10 PT(INR) / PTT - Collect Date /Time: 03/12/2023 18:15 [facility] ID: [id number] [address] [place] [address], [phone] LOINC: 50746-9 Test Value Unit Reference Range Code Code System Flag INR 0.9 L=0.9 H=1.2 6301-6 LOINC PTT W/O HEP 26 sec L=23 H=35 01833-2 LOINC PTT W HEP L=66 H=102 19199-3 LOINC PT ON IV HEPARIN? NO D-DIMER - Collect Date/Time: 03/12/2023 18:15 [facility] ID: [id number] [address] [place] [address], [phone] LOINC: 92656-9 Test Value Unit Reference Range Code Code System Flag D-Dimer 1.47 ug/mL FEU L=0.00 H=0.50 H CBC w/AUTOMATED DIFF - Colle ct Date/Time: 03/12/2023 18:15 [facility] ID: [id number] [address] [place] [address], [place], [place], [phone] LOINC: 44721-1 Test Value Unit Reference Range Code Code System Flag WBC 7.0 th/ul L=4.0 H=11.0 6690-2 LOINC RBC 4.20 mil/ul L=4.00 H=5.20 789-8 LOINC HGB 13.2 g/dl L=12.4 H=16.0 718-7 LOINC HCT 40.0 % L=37.0 H=47.0 4544-3 LOINC MCV 95 fL L=78 H=100 787-2 LOINC MCH 31.4 pg L=27.0 H=32.0 785-6 LOINC MCHC 33.0 g/dl L=32.0 H=36.0 786-4 LOINC RDW 12.1 % L=11.0 H=14.0 788-0 LOINC PLATELET 183 th/ul L=150 H=450 777-3 LOINC %NEUT 88.8 % L=50.0 H=70.0 770-8 LOINC H %LYMPH 7.4 % L=20.0 H=40.0 736-9 LOINC L %MONO 0.9 % L=0.0 H=10.0 5905-5 LOINC %EOS 0.4 % L=0.0 H=3.0 713-8 LOINC %BASO 0.6 % L=0.0 H=2.0 706-2 LOINC %IG 1.9 % L=0.0 H=2.0 #NEUT 6.2 th/ul 751-8 LOINC #LYMPHS 0.5 th/ul 731-0 LOINC #MONOS 0.1 th/ul 742-7 LOINC #EOS 0.0 th/ul 711-2 LOINC #BASO 0.0 th/ul 704-7 LOINC #IG 0.1 th/uL 81049-3 LOINC NRBC 0 /100 WBC L=0 H=0 MANUAL DIFF NOT INDICATED 49362-2 LOINC C REACTIVE PROTEIN - Collect Date/Time: 03/12/2023 18:15 [facility] ID: [id number] [address] [place] [address], [phone] LOINC: 83232-3 Test Value Unit Reference Range Code Code System Flag C-REACTIVE PROTEIN < 3.0 mg/L L=0.0 H=5.0 1988-5 LOINC MAGNESIUM - Collect Date/Jordon e: 03/12/2023 18:15 [facility] ID: [id number] [address] [place] [address], [phone] LOINC: 57271-5 Test Value Unit Reference Range Code Code System Flag MAGNESIUM 1.9 MG/DL L=1.6 H=2.6 77886-0 LOINC TSH (THYROID STIMULATING HOR JOSÉ MIGUEL) - Collect Date/Time: 03/12/2023 18:15 [facility] ID: [id number] [address] [place] [address], [phone] LOINC: 89359-6 Test Value Unit Reference Range Code Code System Flag TSH 2.50 uIU/ml L=0.27 H=4.20 01606-7 LOINC FREE T4 - Collect Date/Time: 03/12/2023 18:15 [facility] ID: [id number] [address] [place] [address], [phone] LOINC: 3024-7 Test Value Unit Reference Range Code Code System Flag FREE T4 0.98 ng/dl L=0.75 H=1.70 3024-7 LOINC LIPASE - Collect Date/Time: 03/12/2023 18:15 [facility] ID: [id number] [address] [place] [address], [phone] LOINC: 3040-3 Test Value Unit Reference Range Code Code System Flag LIPASE 27 U/L L=13 H=60 3040-3 LOINC COMP METAB PROFILE w/ANION G AP - Collect Date/Time: 03/12/2023 18:15 [facility] ID: [id number] [address] [place] [address], [phone] LOINC: 72993-3 Test Value Unit Reference Range Code Code System Flag SODIUM 137 mmol/L L=136 H=145 2951-2 LOINC POTASSIUM 3.7 mmol/L L=3.5 H=5.0 2823-3 LOINC CHLORIDE 101 mmol/L L=98 H=107 2075-0 LOINC CO2 23.2 mmol/L L=22.0 H=29.0 1962-0 LOINC BUN 13 mg/dl L=6 H=21 3094-0 LOINC CREATININE 0.7 mg/dl L=0.5 H=0.9 2160-0 LOINC GLUCOSE 102 mg/dl L=74 H=109 2345-7 LOINC CALCIUM 8.9 mg/dl L=8.6 H=10.5 99675-6 LOINC SGOT(AST) 17 U/L L=5 H=32 1920-8 LOINC SGPT(ALT) 16 U/L L=5 H=33 1744-2 LOINC ALKALINE PHOS 69 U/L L=35 H=104 6768-6 LOINC BILIRUBIN T 0.49 mg/dl L=0.00 H=1.20 1975-2 LOINC TOTAL PROTEIN 6.5 g/dL L=6.1 H=8.1 2885-2 LOINC ALBUMIN 4.5 g/dl L=3.5 H=5.2 1751-7 LOINC GLOBULIN 2.0 g/dl L=2.3 H=3.5 85653-6 LOINC L A/G RATIO 2.3 % L=1.0 H=1.8 1759-0 LOINC H AGE 83 yrs 03942-3 LOINC GFR-AA 103 L=60 H=999 00819-6 LOINC GFR-NON AA 85 L=60 H=999 22895-5 LOINC ANION GAP 12.8 mmol/L L=8.0 H=16.0 67551-2 LOINC CTA ABDOMEN W - Completed: 0 03/12/2023 19:28 LOINC: [No content] CTA CHEST W - Completed: 19:22 LOINC: 33103-2 [No content] Social History Type Status Start Date End [...] Performer Role Active Date Inactive Da te Imaging Narrative Notes [facility] \TM00\12FI\LM03\RM80\DRAo\BM09\ \MRHo\ [address] [address] ---------NAME--------- NUMBER SEX AGE ADMIT DISC. XRAY# F/C TYPE ZACANER AMINATA [id number] F 83 03/12/23 O/P DATE OF : 1940 M/R# [id number] PH#: RM \MRHx\ LOCATION: TRANSCRIBED: 03/12/23 19:24 CTA ABDOMEN W [id number] COMPLETED:03/12/23 19:28 brian [id number] [facility] PHYSICIAN: LUISITO BEST RADIOLOGY REPORT ORDER DATE and TIME: 03/12/2023 1816 [id number] CTA ABDOMEN W DATE OF SERVICE: 03/12/23 18:16 PATIENT EXAM: CTA ABDOMEN PELVIS HISTORY: Low back pain, hypertension COMPARISON: None. FINDINGS: Contrast helical imaging was obtained through the abdomen pelvis utilizing 0.75-mm collimation. Sagittal and coronal reconstructions were imaged and reviewed.. The heart is enlarged without pericardial effusion. There is bibasilar atelectasis. . Calcification of the right diaphragmatic pleura. There is a hiatal hernia. There is hepatomegaly with diffuse fatty infiltration. There is a 7 mm hypoattenuating lesion in the right hepatic lobe which is too small to characterize. the gallbladder is distended without gallstones. The pancreas spleen and adrenal glands have normal enhanced CT appearance. The kidneys excrete contrast in a normal fashion bilaterally. Mild atherosclerotic changes are seen involving the aorta without aneurysm formation.. The mesenteric and renal arteries are patent.. Partially visualized pessary . Postoperative changes in the rectosigmoid colon . There are also postoperative changes in relation to multiple small bowel loops.. There is mild colonic fecal stasis. . There are several dilated fluid filled small bowel loops within the left pelvis which are nonspecific and may be related to ileus versus gastroenteritis. Bone windows reveals no lytic or blastic lesions. IMPRESSION: ASVD without aneurysm. Hepatomegaly with diffuse fatty infiltration. Postoperative changes in the relation to the distal colon and multiple small bowel loops.. Colonic fecal stasis. Prominent small bowel loops within the left pelvis which may be related to ileus versus Hiatal hernia. All CT scans are performed using dose optimization techniques as appropriate to the performed exam and include at least one of the following: Automated exposure control, adjustment of the mA and/or kV according to size, and the use of iterative reconstruction technique. INTERPRETING RADIOLOGIST: Marino Cohen M.D. ELECTRONICALLY SIGNED BY: Marino Cohen M.D. [employer] Trimmer Initials: TS Cutter And Edge Trimmer Time: 19:24 [employer] And Edge Trimmer Date: 03/12/23 Signed Date/Time: 03/12/23 19:24 UNSIGNED TRANSCRIPTIONS ARE PRELIMINARY REPORTS AND DO NOT REPRESENT MEDICAL OR LEGAL DOCUMENTS. [facility] \TM00\12FI\LM03\RM80\DRAo\BM09\ \MRHo\ [address] [address] ---------NAME--------- NUMBER SEX AGE ADMIT DISC. XRAY# F/C TYPE SELVIN DAMONMA [id number] F 83 03/12/23 O/P DATE OF : 1940 M/R# [id number] PH#: RM \MRHx\ LOCATION: TRANSCRIBED: 03/12/23 19:17 CTA CHEST W [id number] COMPLETED:03/12/23 19:22 brian [id number] [facility] PHYSICIAN: LUISITO MAR RADIOLOGY REPORT ORDER DATE and TIME: 03/12/2023 1816 [id number] CTA CHEST W DATE OF SERVICE: 03/12/23 18:16 PATIENT EXAM: CHEST CT ANGIOGRAM WITH IV CONTRAST (AORTA) HISTORY: Chest pain. TECHNIQUE: CTA acquisition of the chest from the thoracic inlet to the upper abdomen following IV contrast administration timed to filling of the aorta. IV Contrast: administered. 3D/MIP/VR images were utilized. CT Dose Reduction Techniques Employed: Yes. COMPARISON: None. FINDINGS: AORTA: No aortic dissection. Mild calcified atherosclerotic plaque. -Sinuses of Valsalva: 3.2 cm. -Ascendin.8 cm. -Arch: 2.5 cm. Proximal branch vessels are normal in configuration without significant stenosis. -Proximal Descendin.2 cm. -Distal Descendin.2 cm. CHEST: Lines, Tubes, Devices: None. Lung Parenchyma and Airways: Central airways are patent without endobronchial lesion. Minimal linear scarring or atelectasis at the lung bases posteriorly. No other pulmonary airspace or interstitial disease. No suspicious pulmonary nodule. Pleural Space: No pleural effusion or thickening. No pneumothorax. Thoracic Inlet, Mediastinum, and Digna: Enlarged left lobe of thyroid with possible nodule measuring 4.3 x 2.5 cm. No lymphadenopathy. Heart, Vessels, and Pericardium: No pulmonary artery embolism. The heart is mildly enlarged. There is no pericardial effusion or thickening. Bones and Soft Tissues: Old healed right rib fractures. No acute fracture or lytic lesion. Chest wall soft tissues are unremarkable. Upper Abdomen: The visualized portions of the liver, spleen, and adrenals are normal. Small hiatus hernia. IMPRESSION: 1. Normal CT thoracic aorta angiogram with no evidence of aortic dissection. 2. No evidence of pulmonary artery embolism. 3. Minimal linear scarring or atelectasis at the lung bases posteriorly. 4. Possible left lobe thyroid nodule. Correlation with thyroid ultrasound advised. 5. Mild cardiomegaly. 6. Old healed right rib fractures. 7. Small hiatus hernia. 8. Otherwise unremarkable CT scan of the chest. All CT scans are performed using dose optimization techniques as appropriate to the performed exam and include at least one of the following: Automated exposure control, adjustment of the mA and/or kV according to size, and the use of iterative reconstruction technique. INTERPRETING RADIOLOGIST: CHARLENE ZULETA M.D. ELECTRONICALLY SIGNED BY: CHARLENE ZULETA M.D. [employer] Edge Trimmer Initials: CB Cutter And Edge Trimmer Time: 19:17 Cutter And Edge Trimmer Date: 03/12/23 Signed Date/Time: 03/12/23 19:17 UNSIGNED TRANSCRIPTIONS ARE PRELIMINARY REPORTS AND DO NOT REPRESENT MEDICAL OR LEGAL DOCUMENTS. Laboratory Narrative Notes
== END 2024-09-05 07:46 | disposition home or self-care (01) ==
PROVIDERS: PCP Nurse Practitioner; Visit Provider Nurse Practitioner
DX: M81.0 Age-related osteoporosis without current pathological fracture (principal); M85.852 Other specified disorders of bone density and structure, left thigh; M85.851 Other specified disorders of bone density and structure, right thigh
CPT/HCPCS: 77080

== ENCOUNTER 2024-09-11 08:46 | Outpatient (CLI) | payer MEDICARE, OTHER, SELFPAY ==
--- OUTSIDE RECORDS SUMMARY | 2024-09-11 09:22 | XMS_ITS | Referral Summary ---
Author Organization [facility] Address [address] [place] [id number] Care Team Providers Care Obstetrics Gynecology Md Name Role Phone Rolando Spears MD Primary Care Provider [phone] Allergies No known active allergies Medications alendronate [...] (06/07/2018): Added automatically from request for surgery [id number] Screen for colon cancer 05/26/2018 Overview (05/26/2018): Added automatically from request for surgery [id number] Abdominal pain, lower 04/26/2018 Social History Tobacco [...] 36.3 C (97.4 F) 07/19/2018 3:14 PM [employer]IVER Respiratory Rate 18 06/30/2018 2:00 PM [employer]IVER Oxygen Saturation 97% 11/24/2023 8:50 AM CDT Inhaled Oxygen Concentration - - Weight 73.5 kg (162 lb) 11/24/2023 8:50 AM CDT Height 162.6 cm (5' 4 ) 11/24/2023 8:50 AM CDT Body Mass Index 27.81 11/24/2023 8:50 AM CDT Plan of Treatment Not on file Insurance [employer] MED[employer] [facility] Advance Directives For more information, please contact: [phone] * Full Code (Latest Code Status on File) Date Activated Date Inactivated Comments 06/30/2018 12:34 PM 06/30/2018 4:50 PM * Full Code Date Activated Date Inactivated Comments 06/11/2018 9:21 AM 06/14/2018 8:22 PM Care Teams Obstetrics Gynecology Md Relationship Specialty Start Date End Date Rolando Spears MD PCP - General Family Practice 04/28/23
--- OUTSIDE RECORDS SUMMARY | 2024-09-11 09:22 | XMS_ITS ---
Author Organization Unknown Address [address] [place] [phone] Phone Care Team Providers Care End Packer Name Role Phone LUISITO BELL Attending Unavailable [...]
--- OUTSIDE RECORDS SUMMARY | 2024-09-11 09:22 | XMS_ITS ---
Author Organization Unknown Address [address] [place] [phone] Phone Care Team Providers Care Radio Equipment Installer Name Role Phone LUISITO BELL Attending Unavailable NOT ON [facility] Secondary Unavailable Results TROPONIN T, 2 HOUR, 5TH GEN - Collect Date/Time: 03/12/2023 20:25 [facility] ID: [id number] [address] [place] [address], [phone] LOINC: 6598-7 Test Value Unit Reference Range Code Code System Flag TROPONIN T, 2 HR 9 ng/L L=0 H=10 DELTA 2HR TROPONIN T 1 ng/L L=-3 H=3 URINALYSIS - Collect Date/Ti me: 03/12/2023 19:48 [facility] ID: [id number] [address] [place] [address], [phone] LOINC: 52202-1 Test Value Unit Reference Range Code Code System Flag SPECIMEN TYPE: CLEAN CATCH CC Kit Chg? YES U COLOR YELLOW NORMAL: YELLOW 6824-7 LOINC U CLARITY CLEAR NORMAL: CLEAR 24716-2 LOINC U GLUCOSE NEGATIVE NORMAL: NEGATIVE 38484-5 LOINC U BILIRUBIN NEGATIVE NORMAL: NEGATIVE 18097-2 LOINC U KETONE NEGATIVE NORMAL: NEGATIVE 12897-4 LOINC U SP GRAVITY 1.010 1.015 - 1.025 53108-3 LOINC A U BLOOD NEGATIVE NORMAL: NEGATIVE 43582-2 LOINC U pH 6.5 5.0 - 8.0 37046-1 LOINC U PROTEIN NEGATIVE NORMAL: NEGATIVE 28027-2 LOINC UROBILINOGEN 0.2 0-1 E.U./dL 51145-5 LOINC U NITRITE NEGATIVE NORMAL: NEGATIVE 63458-8 LOINC U LEUKOCYTES NEGATIVE NORMAL: NEGATIVE Microscopic NOT PERFORMED BNP (NT pro-BNP) - Collect D ate/Time: 03/12/2023 18:15 [facility] ID: [id number] [address] [place] [address], [phone] LOINC: 59650-0 Test Value Unit Reference Range Code Code System Flag NT proBNP 228 pg/ml L=0 H=450 79907-8 LOINC TROPONIN T, BASELINE, 5TH GE N w/REFLEX - Collect Date/Time: 03/12/2023 18:15 [facility] ID: [id number] [address] [place] [address], [phone] LOINC: 6598-7 Test Value Unit Reference Range Code Code System Flag TROPONIN T BASELINE 8 ng/L L=0 H=10 PT(INR) / PTT - Collect Date /Time: 03/12/2023 18:15 [facility] ID: [id number] [address] [place] [address], [phone] LOINC: 74037-5 Test Value Unit Reference Range Code Code System Flag INR 0.9 L=0.9 H=1.2 6301-6 LOINC PTT W/O HEP 26 sec L=23 H=35 50586-5 LOINC PTT W HEP L=66 H=102 79326-3 LOINC PT ON IV HEPARIN? NO D-DIMER - Collect Date/Time: 03/12/2023 18:15 [facility] ID: [id number] [address] [place] [address], [phone] LOINC: 71496-6 Test Value Unit Reference Range Code Code System Flag D-Dimer 1.47 ug/mL FEU L=0.00 H=0.50 H CBC w/AUTOMATED DIFF - Colle ct Date/Time: 03/12/2023 18:15 [facility] ID: [id number] [address] [place] [address], [phone] LOINC: 43053-3 Test Value Unit Reference Range Code Code [...] 0.0 th/ul 704-7 LOINC #IG 0.1 th/uL 98489-8 LOINC NRBC 0 /100 WBC L=0 H=0 MANUAL DIFF NOT INDICATED 74579-0 LOINC C REACTIVE PROTEIN - Collect Date/Time: 03/12/2023 18:15 [facility] ID: [id number] [address] [place] [address], [phone] LOINC: 58216-4 Test Value Unit Reference Range Code Code System Flag C-REACTIVE PROTEIN < 3.0 mg/L L=0.0 H=5.0 1988-5 LOINC MAGNESIUM - Collect Date/Jordon e: 03/12/2023 18:15 [facility] ID: [id number] [address] [place] [address], [phone] LOINC: 87208-0 Test Value Unit Reference Range Code Code System Flag MAGNESIUM 1.9 MG/DL L=1.6 H=2.6 49600-6 LOINC TSH (THYROID STIMULATING HOR JOSÉ MIGUEL) - Collect Date/Time: 03/12/2023 18:15 [facility] ID: [id number] [address] [place] [address], [phone] LOINC: 51213-5 Test Value Unit Reference Range Code Code System Flag TSH 2.50 uIU/ml L=0.27 H=4.20 92473-1 LOINC FREE T4 - Collect Date/Time: 03/12/2023 18:15 [facility] ID: [id number] [address] [place] [address], [phone] LOINC: 3024-7 Test Value Unit Reference Range Code Code System Flag FREE T4 0.98 ng/dl L=0.75 H=1.70 3024-7 LOINC LIPASE - Collect Date/Time: 03/12/2023 18:15 [facility] ID: [id number] [address] [place] [address], [phone] LOINC: 3040-3 Test Value Unit Reference Range Code Code System Flag LIPASE 27 U/L L=13 H=60 3040-3 LOINC COMP METAB PROFILE w/ANION G AP - Collect Date/Time: 03/12/2023 18:15 [facility] ID: [id number] [address] [place] [address], [phone] LOINC: 22495-9 Test Value Unit Reference Range Code Code System Flag SODIUM 137 mmol/L L=136 H=145 2951-2 LOINC POTASSIUM 3.7 mmol/L L=3.5 H=5.0 2823-3 LOINC CHLORIDE 101 mmol/L L=98 H=107 2075-0 LOINC CO2 23.2 mmol/L L=22.0 H=29.0 1962-0 LOINC BUN 13 mg/dl L=6 H=21 3094-0 LOINC CREATININE 0.7 mg/dl L=0.5 H=0.9 2160-0 LOINC GLUCOSE 102 mg/dl L=74 H=109 2345-7 LOINC CALCIUM 8.9 mg/dl L=8.6 H=10.5 45204-0 LOINC SGOT(AST) 17 U/L L=5 H=32 1920-8 LOINC SGPT(ALT) 16 U/L L=5 H=33 1744-2 LOINC ALKALINE PHOS 69 U/L L=35 H=104 6768-6 LOINC BILIRUBIN T 0.49 mg/dl L=0.00 H=1.20 1975-2 LOINC TOTAL PROTEIN 6.5 g/dL L=6.1 H=8.1 2885-2 LOINC ALBUMIN 4.5 g/dl L=3.5 H=5.2 1751-7 LOINC GLOBULIN 2.0 g/dl L=2.3 H=3.5 02204-4 LOINC L A/G RATIO 2.3 % L=1.0 H=1.8 1759-0 LOINC H AGE 83 yrs 82062-3 LOINC GFR-AA 103 L=60 H=999 93342-0 LOINC GFR-NON AA 85 L=60 H=999 16670-4 LOINC ANION GAP 12.8 mmol/L L=8.0 H=16.0 46039-0 LOINC CTA ABDOMEN W - Completed: 0 03/12/2023 19:28 LOINC: [No content] CTA CHEST W - Completed: 19:22 LOINC: 68723-8 [No content] Social History Type Status Start [...] te Imaging Narrative Notes [facility] \TM00\12FI\LM03\RM80\DRAo\BM09\ \MRHo\ [address] [address] ---------NAME--------- NUMBER SEX AGE ADMIT DISC. XRAY# F/C TYPE ZACANER AMINATA [id number] F 83 03/12/23 O/P DATE OF : 1940 M/R# [id number] PH#: RM \MRHx\ LOCATION: TRANSCRIBED: 03/12/23 19:24 CTA ABDOMEN W [id number] COMPLETED:03/12/23 19:28 brian [id number] [facility] PHYSICIAN: LUISITO BEST RADIOLOGY REPORT ORDER DATE and TIME: 03/12/2023 1816 [id number] CTA ABDOMEN W DATE OF SERVICE: 03/12/23 [...] M.D. ELECTRONICALLY SIGNED BY: Marino Cohen M.D. Needle Loom Setter Initials: TS Needle Loom Setter Time: 19:24 Needle Loom Setter Date: 03/12/23 Signed Date/Time: 03/12/23 19:24 UNSIGNED TRANSCRIPTIONS ARE PRELIMINARY REPORTS AND DO NOT REPRESENT MEDICAL OR LEGAL DOCUMENTS. [facility] \TM00\12FI\LM03\RM80\DRAo\BM09\ \MRHo\ [address] [address] ---------NAME--------- NUMBER SEX AGE ADMIT DISC. XRAY# F/C TYPE SELVIN DAMONMA [id number] F 83 03/12/23 O/P DATE OF : 1940 M/R# [id number] PH#: RM \MRHx\ LOCATION: TRANSCRIBED: 03/12/23 19:17 CTA CHEST W [id number] COMPLETED:03/12/23 19:22 brian [id number] [facility] PHYSICIAN: LUISITO MAR RADIOLOGY REPORT ORDER DATE and TIME: 03/12/2023 1816 [id number] CTA CHEST W DATE OF SERVICE: 03/12/23 [...] M.D. ELECTRONICALLY SIGNED BY: CHARLENE ZULETA M.D. Needle Loom Setter Initials: CB Needle Loom Setter Time: 19:17 Needle Loom Setter Date: 03/12/23 Signed Date/Time: 03/12/23 19:17 UNSIGNED TRANSCRIPTIONS ARE PRELIMINARY REPORTS AND DO NOT REPRESENT MEDICAL OR LEGAL DOCUMENTS. Laboratory Narrative Notes
--- OUTSIDE RECORDS SUMMARY | 2024-09-11 09:23 | XMS_ITS | Clinical Summary ---
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 Respiratory Rate 18 06/30/2018 2:00 PM OIL FURNACE INSTALLER Oxygen Saturation 97% 11/24/2023 8:50 AM CDT [...] Zoster Vaccine Completed 06/21/2018, 03/06/2018 Insurance MEDICARE [employer] MEDICARE Member Subscriber Plan / Payer ( fective 2005-Present) Name:Venessa Gifford Member ID:[id number] Relation to Subscriber:Self Name:Venessa Gifford Subscriber ID:[id number] Payer ID:[id number] Group ID:Not on file Type:MEDICARE TRADITIONAL Address: [place] [phone] [facility] Member Subscriber Plan / Payer ( fective 2005-Present) Name:Venessa Gifford Member ID:[id number] Relation to Subscriber:Self Name:BrayankleberVenessa Subscriber ID:[id number] Payer ID:[id number] Group ID:Not on file Type:MEDICARE TRADITIONAL Address: [place] [phone] [employer] Advance Directives For more information, please contact: [phone] * Full Code (Latest Code Status on File) Date Activated Date Inactivated Comments 06/30/2018 12:34 PM 06/30/2018 4:50 PM * Full Code Date Activated Date Inactivated Comments 06/11/2018 9:21 AM 06/14/2018 8:22 PM Care Teams Panama Hat Blocker Relationship Specialty Start Date End Date Rolando Spears MD PCP - General Family Practice 04/28/23
[2024-09-11 09:25] LABS: Hematocrit 42.8 % (37.0-47.0); Hemoglobin 13.7 g/dL (12.0-15.0); Mean Corpuscular Hemoglobin 30.6 pg (26-34); Mean Corpuscular Volume 95.5 fl (80-100); Mean Platelet Volume 12.2 fl (7.4-10.4); Platelet Count Result 183 k/mm3 (150-375); Red Blood Count 4.48 M/mm3 (4.2-5.4); Red Cell Distribution Width 12.7 % (11.5-14.5); White Blood Count 5.5 K/mm3 (4.5-10.0)
[2024-09-11 09:53] LABS: Alanine Aminotransferase 15 U/L (6-35); Albumin Level 4.4 g/dL (3.5-5.1); Alkaline Phosphatase 75 U/L (38-126); Anion Gap 9 mmol/L (4-12); Aspartate Amino Transferase 20 U/L (14-36); Bilirubin,Total 0.4 mg/dL (0.2-1.3); Blood Urea Nitrogen 13 mg/dL (7-17); Calcium 9.3 mg/dL (8.4-10.2); Carbon Dioxide 27 mmol/L (22-30); Chloride 104 mmol/L (98-107); Cholesterol 153 mg/dL (0-200); Estimated Glomerular Filt Rate > 60; Glucose 95 mg/dL (65-110); HDL Direct 52 mg/dL; Sodium 140 mmol/L (137-145); Triglycerides 166 mg/dL (<150)
[2024-09-11 10:05] LABS: LDL Cholesterol Direct 68 mg/dL
[2024-09-11 10:13] LABS: Free T4 Free Thyroxine 0.78 ng/dL (0.78-2.19); Vitamin D 25 Hydroxy 75.4 ng/mL
[2024-09-11 11:07] LABS: Hemoglobin A1C 5.3 % (<5.7)
== END 2024-09-11 08:47 | disposition home or self-care (01) ==
LOC: ANHLAB 08:48
PROVIDERS: PCP Nurse Practitioner; Visit Provider Nurse Practitioner
DX: E78.49 Other hyperlipidemia (principal); E78.5 Hyperlipidemia, unspecified; E55.9 Vitamin D deficiency, unspecified; R79.89 Other specified abnormal findings of blood chemistry; E05.00 Thyrotoxicosis with diffuse goiter without thyrotoxic crisis or storm
CPT/HCPCS: 36415; 80053; 80061; 82306; 83036; 84439; 84443; 85027

== ENCOUNTER 2024-10-24 12:10 | Emergency (ER) | payer MEDICARE, OTHER, SELFPAY ==
[2024-10-24] VITALS (10 sets, daily range): BP systolic 152–189; BP diastolic 61–89; PULSE 60–78; RESP 15–18; TEMP 36.6; O2SAT 97–100
--- NOTE | ~2024-10-24 | CT_ITS ---
CT brain wo con Ordering provider: Iglesia Devi MD History: 84 years Female with . Head injury . Comparison: None. Technique: CT of the head without contrast. Radiation reduction technique utilized. The dose-length p roduct was 605.33 mGy-cm. FINDINGS: BRAIN PARENCHYMA AND CSF SPACES: Mild leukoaraiosis and diffuse cortical atrophy. Mild atheromatous d isease. No midline shift, mass effect or hemorrhage. The brain parenchyma and CSF spaces are otherwi se normal. VISUALIZED PARANASAL SINUSES: Well aerated. MASTOIDS: Well aerated. BONES: The bones appear intact. SOFT TISSUES: Visualized nasopharynx is normal. Superficial soft tissues are normal. IMPRESSION: No acute intracranial findings. Reviewed, dictated and finalized at location A.
--- NOTE | ~2024-10-24 | CT_ITS ---
EXAMINATION: CT cervical spine wo con DATE: 10/24/2024 13:10 INDICATION: Head injury TECHNIQUE: Computed tomography (CT) of the cervical spine was performed without intravenous contrast. Automated exposure control and iterative reconstruction technique were employed. The dose-length pro duct was 200.09 mGy-cm. COMPARISON: None FINDINGS: Alignment is normal. Severe osteoarthritis at the atlantoaxial articulation. Vertebral body heights a re normal. Cervical disc heights are normal. There is mild disc height loss at T2-T3 and T3-T4. Disc bulges contributing to minimal central canal stenosis at C2-C3 and C3-C4. Multilevel mild bilateral c ervical uncovertebral osteoarthritis. Multilevel bilateral moderate to severe cervical and upper thor acic facet osteoarthritis. There is fusion across the left C2-C3 facet joint. Negligible stenosis at several of the bilateral cervical neural foramina. Multinodular goiter. Cervical soft tissues are oth erwise unremarkable. Mild biapical pleural-parenchymal scarring. IMPRESSION: 1. Mild upper thoracic and minimal cervical spondylosis with multilevel moderate to severe facet oste oarthritis. No acute osseous abnormality. 2. Multinodular goiter. Reviewed, dictated and finalized at location A. IMPRESSION: 1. Mild upper thoracic and minimal cervical spondylosis with multilevel moderat e to severe facet osteoarthritis. No acute osseous abnormality. 2. Multinodular goiter.
--- OUTSIDE RECORDS SUMMARY | 2024-10-24 12:30 | XMS_ITS | Data Portability ---
Author Organization [facility], [place] Address [address] [place] [address] Care Team Providers Care Aluminum Polisher Name Role Phone KRISTOPHER HAMPTON Primary Care Provider [phone] Assessment No assessment recorded. Plan of Treatment [...] Recorded Time Prolapse of female genital organs [id number] Active 021 Daly Patricia adamson [facility] 11:50:21 Problem Notes None recorded. Procedures Surgical History Date Name Laterality Status Provider Name and Address Organization Details Recorded Time 09/24/19 21 Pessary Insertion completed Seb Maddox MD [address], [place], [address], , [facility] 09/23/2020 11:45:16 06/21/19 16 Date of Last Colonoscopy completed Corina Fenton [facility] 11/03/2023 20:13:04 06/21/19 16 Colonoscopy completed Corina Fenton [facility] 11/03/2023 20:13:30 06/21/19 16 Surgical revision intestine completed Corina Fenton [facility] 11/03/2023 20:15:11 06/21/19 16 Surgical revision intestine completed [facility] 11/03/2023 20:15:13 06/21/19 16 Surgical revision intestine completed [facility] 11/03/2023 20:15:16 06/21/18 72 Total Hysterectomy completed [facility] 11/03/2023 20:13:20 06/21/18 62 Thyroid Surgery completed [facility] 11/03/2023 20:16:18 06/21/18 54 Tonsillectomy completed [facility] 11/03/2023 20:15:42 Imaging Results None recorded. [...] Not Available Not Available No t Available hydrocortis one 2.5 % topical cream active Not Available Not Available Not Available clindamycin 2 % vaginal cream Insert [...] Not Available rosuvastati n 10 mg tablet 09/22 completed Not Available Not Available Not Available [...] Updated DateTime 11/29/2023 165.1 cm 27 kg/m2 15873.96 g 149 mm[Hg] 76 mm[Hg] Evelyn Nolasco [facility] 4 09:28:51 Date Recorded Body height Body mass index (BMI) Body weight Systolic blood pressure Diastolic blood pressure Provider Name and Address Organization Details Last Updated DateTime 02/28/2024 165.1 cm 27.1 kg/m2 22299.56 g 144 mm[Hg] 76 mm[Hg] Corina Fenton [facility] 4 09:37:45 Date Recorded Body height Body mass index (BMI) Body weight Systolic blood pressure Diastolic blood pressure Provider Name and Address Organization Details Last Updated DateTime 03/24/2024 165.1 cm 27 kg/m2 16671.4 g 118 mm[Hg] 69 mm[Hg] Christina Cutler [facility] 4 09:38:22 Date Recorded Body height Body mass index (BMI) Body weight Systolic blood pressure Diastolic blood pressure Provider Name and Address Organization Details Last Updated DateTime 04/29/2024 165.1 cm 27.3 kg/m2 39690.15 g 122 mm[Hg] 72 mm[Hg] Jody Walker [facility] 4 09:41:15 Date Recorded Body height Body mass index (BMI) Body weight Systolic blood pressure Diastolic blood pressure Provider Name and Address Organization Details Last Updated DateTime 09/22/2024 165.1 cm 27.1 kg/m2 81909.56 g 126 mm[Hg] 79 mm[Hg] Jody Walker [facility] 5 14:53:29 Social History Question Answer Notes LastModified by Organizat ion Details LastModified Time Tobacco Smoking Status Unknown If Ever Smoked Corina Fenton [facility] 02/28/2024 09:38:53 Do You Have An Advance Directive? No Information not available 09/23/2020 What Is Your Level Of Alcohol Consumption? None Information not available 09/23/2020 Are You Blind Or Do You Have Difficulty Seeing? No Information not available 09/23/2020 What Is Your Level Of Caffeine Consumption? Occasional [email or web address] Information not available 02/28/2024 In The 14 [...] Or The Highest Degree You Have Received? [id number] Information not available 09/23/2020 What Is Your [...] Anxious, Or Unable To Sleep At Night)? [id number] Information not available 09/23/2020 Do You Use Any Illicit Or Recreational Drugs? No Information not available 09/23/2020 Do You Use Sunscreen Routinely? Yes Information not available 09/23/2020 Have You Used IV Drugs? No Information not available 09/23/2020 Do You Or Have You Ever Used Any Other Forms Of Tobacco Or Nicotine? No [email or web address] Information not available 02/28/2024 Sex: Unknown Functional Status Question Answer Note LastModified by Organizat ion Details LastModified Time Do you have difficulty walking or climbing stairs? No [email or web address] Information not available 11/29/2023 Are you able to walk? [email or web address] Information not available 09/23/2020 Are you able to care for yourself? Yes [email or web address] Information not available 11/29/2023 Do you have [...] Gynecological History Statement/Question Response Date of Last Colonoscopy 06/21/2015 Date of Last Mammogram Date of LMP 06/21/1971 STIs/STDs N Was last menstrual period normal Y Date of DEXA bone scan Date of Last Pap Smear Current Control Method Hysterectom y Obstetrics History GPAL:G 3 P 3 0 0 3 Type Value Full Term 3 Living 3 Total 3 Past Encounters Encounter ID Performer Location Encounter Start Date Encounter Closed Date Diagnosis/Indication Diagnosis SNOMED-CT Code Diagnosis ICD10 Code Diagnosis Note [id number] Seb Maddox MD [place] [address],[place] [address] 09/23/2020 10:49:05 09/23/2020 11:46:54 Prolapse of female genital organs 00619293 N81.9 This patient is 80-year-ol d female with pelvic organ prolapse. She has urinary symptoms associated with prolapse. She is not appear bladder well. A 2-1/2 inch ring with support was inserted. She tolerated it well. She will follow up in 1 week. [id number] Seb Maddox MD [place] [address],[place] [address] 10/04/2020 09:50:51 10/04/2020 10:29:22 Prolapse of female genital organs 90683331 N81.9 this patient is an 80-year-ol d [...] She does not have to wear pads. [id number] Seb Maddox MD [place] [address] [address] 10/18/2020 09:56:13 10/18/2020 10:58:07 Prolapse of female genital organs 36065882 N81.9 Urge incon tinence of urine 91855609 N39.41 this patient is an 80-year-ol d [...] of Detrol. She return in 1 month. [id number] Seb Maddox MD [place] [address],[place] [address] 12/02/2020 11:35:56 12/02/2020 12:30:06 Urgent desire to urinate 59219680 R39.15 Prolapse o f female genital organs 87784299 N81.9 This patient is a 80 y/o [...] would like to continue the medication . [id number] Seb Maddox MD [place] [address],[place] [address] 03/06/2021 09:09:04 03/06/2021 10:19:43 Prolapse of female genital organs 88692721 N81.9 this patient is an 80-year-ol d [...] month. She will follow-up in 3 months. [id number] Seb Maddox MD [place] [address],[place] [address] 06/06/2021 09:18:24 06/06/2021 12:29:41 Prolapse of female genital organs 30474490 N81.9 This patient is a 81 y/o female who presents for pessary check. She has no complaints with respect to pessary and its performanc e. The pessary was removed and cleaned. The vagina was examined and found to be normal: no ulceration or erosion. The pessary was replaced. The patient agreed to RTC in 3 months. [id number] Seb Maddox MD [place] [address],[place] [address] 09/04/2021 09:45:35 09/04/2021 10:57:40 Prolapse of female genital organs 07222049 N81.9 this patient is an 81 year female who presents for pessary check. She has no complaints with respect to pessary and its performanc e. The pessary was removed and cleaned. The vagina was examined and found to be normal: no ulceration or erosion. The pessary was replaced. The patient agreed to RTC in 3 months. [id number] Seb Maddox MD [place] [address],[place] [address] 10/30/2021 09:09:14 10/30/2021 09:54:56 Prolapse of female genital organs 14394871 N81.9 this patient is an 81 year [...] with vaginal antibiotic s for 5 days. [id number] Seb Maddox MD [place] [address],[place] [address] 01/29/2022 09:05:18 01/29/2022 09:51:32 Prolapse of female genital organs 29542721 N81.9 This patient is a 81 y/o female who presents for pessary check. She has no complaints with respect to pessary and its performanc e. The pessary was removed and cleaned. The vagina was examined and found to be normal: no ulceration or erosion. The pessary was replaced. The patient agreed to RTC in 3 months. [id number] Seb Maddox MD [place] [address],[place] [address] 03/23/2022 11:39:44 03/24/2022 10:25:03 Abnormal vaginal bleeding 011543873 N93.9 this patient is an 82-year-ol d [...] than 20% was counseling . Vaginal ulcer 50220477 N 76.5 [id number] Seb Maddox MD [place] [address],[place] [address] 04/23/2022 10:19:50 04/24/2022 14:47:22 Prolapse of female genital organs 11328372 N81.9 82-year-ol d female presents for pessary check. The patient was examined. The pessary was not present. It apparently had fallen out and was a noticed. Patient complained of no symptoms. she has noticed nothing bulging from the of vagina. We agreed to observe. [id number] Seb Maddox MD [place] [address],[place] [address] 06/03/2022 14:00:19 06/04/2022 12:29:20 Prolapse of female genital organs 24127211 N81.9 this patient is a 82-year-ol d female with pelvic organ prolapse. We had removed her pessary because of some mild trauma to the vaginal mucosa. We will of vaginal mucosa to heal. It appears well healed today. We replaced the pessary. Is a 2-/4 inch ring with support. She will follow-up in 3 months. She has no other complaints . [id number] Seb Maddox MD [place] [address],[place] [address] 08/31/2022 11:02:59 08/31/2022 12:12:35 Prolapse of female genital organs 70730312 N81.9 This patient is a 82 y/o female who presents for pessary check. She has no complaints with respect to pessary and its performanc e. The pessary was removed and cleaned. The vagina was examined and found to be normal: no ulceration or erosion. The pessary was replaced. The patient agreed to RTC in 3 months. [id number] Seb Maddox MD [place] [address],[place] [address] 11/30/2022 10:02:30 11/30/2022 11:06:40 Prolapse of female genital organs 41937772 N81.9 This patient is a 82 y/o female who presents for pessary check. She has no complaints with respect to pessary and its performanc e. The pessary was removed and cleaned. The vagina was examined and found to be normal: no ulceration or erosion. The pessary was replaced. The patient agreed to RTC in 3 months. [id number] Seb Maddox MD [place] [address],[place] [address] 03/01/2023 10:10:00 03/01/2023 14:44:09 Prolapse of female genital organs 70386511 N81.9 This patient is a 82 y/o female who presents for pessary check. She has no complaints with respect to pessary and its performanc e. The pessary was removed and cleaned. The vagina was examined and found to be normal: no ulceration or erosion. The pessary was replaced. The patient agreed to RTC in 3 months. [id number] Seb Maddox MD [place] [address],[place] [address] 05/31/2023 10:27:04 05/31/2023 12:14:20 Prolapse of female genital organs 78830918 N81.9 This patient is a 82 y/o female who presents for pessary check. She has no complaints with respect to pessary and its performanc e. The pessary was removed and cleaned. The vagina was examined and found to be normal: no ulceration or erosion. The pessary was replaced. The patient agreed to RTC in 3 months. [id number] Seb Maddox MD [place] [address],[place] [address] 08/30/2023 09:11:32 08/30/2023 10:59:34 Prolapse of female genital organs 31839036 N81.9 This patient is a 82 y/o female who presents for pessary check. She has no complaints with respect to pessary and its performanc e. The pessary was removed and cleaned. The vagina was examined and found to be normal: no ulceration or erosion. The pessary was replaced. The patient agreed to RTC in 3 months. [id number] Seb Maddox MD [place] [address] [address] 11/29/2023 09:08:00 11/29/2023 11:26:56 Prolapse of female genital organs 16248395 N81.9 This patient is a 82 y/o female who presents for pessary check. She has no complaints with respect to pessary and its performanc e. The pessary was removed and cleaned. The vagina was examined and found to be normal: no ulceration or erosion. The pessary was replaced. The patient agreed to RTC in 3 months. [id number] Seb Maddox MD [place] [address] [address] 02/28/2024 09:28:19 02/28/2024 17:53:14 Pessary care 628547947 Z46.89 a 3-year-old female with pelvic organ [...] minutes On the patient's care in total. [id number] Seb Maddox MD [place] [address],[facility] [place] [address] 03/24/2024 09:20:02 03/27/2024 16:56:19 Prolapse of female genital organs 36873200 N81.9 84-year-ol d female presents for follow-up [...] We will consider placing the pessary again. [id number] Seb Maddox MD [place] [address],[place] [address] 04/29/2024 09:29:12 04/29/2024 11:08:17 Prolapse of female genital organs 90146025 N81.9 84-year-ol d female with pelvic organ [...] of the pessary if her symptoms worsen. [id number] Seb Maddox MD [place] [address],[facility] [place] [address] 09/22/2024 14:10:48 09/25/2024 08:01:36 Prolapse of female genital organs 58960830 N81.9 an 84-year-ol d female with pelvic organ prolapse. Presents into the the pessary out to allow healing. Patient is here to inquire about other therapies. We discussed surgery and urogynecol ogy consult. She will have a consultati on with Dr. Boss. Health Concerns Section Related Observation LastModified by Organization Detai ls LastModified Time None Recorded Concern Status LastModified by Organization Details LastModified Time None Recorded Advance Directives Directive N: Payers Encounter Date Sequence Insurance Name Policy Number Policy Pierce Covered Member ID Pierce Member ID Guarantor Name 11/29/2023 1 [place] Venessa I Ruffaner [id number] Venessa Ruffaner 11/29/2023 2 [employer] - FOR LIFE (MEDICARE SUPPLEMENT) Venessa Ruffaner [id number] Venessa Ruffaner 02/28/2024 1 [place] Venessa I Ruffaner [id number] Venessa Ruffaner 02/28/2024 2 [employer] - FOR LIFE (MEDICARE SUPPLEMENT) Venessa Ruffaner [id number] Venessa Ruffaner 03/24/2024 1 [place] Venessa I Ruffaner [id number] Venessa Ruffaner 03/24/2024 2 [employer] - FOR LIFE (MEDICARE SUPPLEMENT) Venessa Ruffaner [id number] Venessa Ruffaner 04/29/2024 1 [place] Venessa I Ruffaner [id number] Venessa Ruffaner 04/29/2024 2 [employer] - FOR LIFE (MEDICARE SUPPLEMENT) Venessa Ruffaner [id number] Venessa Ruffaner 09/22/2024 1 [place] Venessa I Ruffaner [id number] Venessa Ruffaner 09/22/2024 2 [employer] - FOR LIFE (MEDICARE SUPPLEMENT) Venessa Ruffaner [id number] Venessa Ruffaner Notes Date Note Type Note Provider Name and Address Organization Details Recorded Time 11/29/2023 text/html This patient is a 82 y/o female who presents for pessary check. She has no complaints with respect to pessary and its performance. The pessary was removed and cleaned. The vagina was examined and found to be normal: no ulceration or erosion. The pessary was replaced. The patient agreed to RTC in 3 months. Seb Maddox MD [address], [place], [address], [facility] 11/29/2023 11:25:23 02/28/2024 text/html a 3-year-old fem rox with pelvic organ prolapse presents for pessary [...] total. Seb Maddox MD [address], [place], [address], [facility] 02/28/2024 17:44:11 03/24/2024 text/html 84-year-old femjonathan black presents for follow-up on pelvic organ [...] again. Seb Maddox MD [address], [place], [address], [facility] 03/27/2024 15:18:18 04/29/2024 text/html 84-year-old fema wayne with pelvic organ prolapse. She has had [...] worsen. Seb Maddox MD [address], [place], [address], [facility] 04/29/2024 10:54:14 09/22/2024 text/html an 84-year-old female with pelvic organ prolapse. Presents into the the pessary out to allow healing. Patient is here to inquire about other therapies. We discussed surgery and urogynecology consult. She will have a consultation with Dr. Boss. Seb Maddox MD [address], [place], [address], [facility] 09/23/2024 13:06:11 OBGyn Episode Ob Episode Information Episode Created Date Number of Fetuses Patient Bloodtype Patient rh Status Prepregnancy Weight lbs Domestic Partner Domestic Partner Phone Father Name Still Runner Status 09/24/19 21 1 CLOSED Fetus Data [...] Domestic Partner Domestic Partner Phone Father Name Still Runner Status 11/03/19 24 1 CLOSED Fetus Data First Name Last Name Admitted to NICU Weight (g) Sex Living Outcome Pediatric Complications Fetus ID Race Codes Race Delivery Type 2721.55 2 F Full Term [id number] Vaginal Delivery Last Calculation Initial Last Date [...] Domestic Partner Domestic Partner Phone Father Name Still Runner Status 11/03/19 24 1 CLOSED Fetus Data First Name Last Name Admitted to NICU Weight (g) Sex Living Outcome Pediatric Complications Fetus ID Race Codes Race Delivery Type 4422.52 2 M Full Term [id number] Vaginal Delivery Last Calculation Initial Last Date [...]
--- OUTSIDE RECORDS SUMMARY | 2024-10-24 12:30 | XMS_ITS | Referral Summary ---
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 Respiratory Rate 18 06/30/2018 2:00 PM NUT GRADER Oxygen Saturation 97% 11/24/2023 8:50 AM CDT Inhaled Oxygen Concentration - - Weight 73.5 kg (162 lb) 11/24/2023 8:50 AM CDT Height 162.6 cm (5' 4 ) 11/24/2023 8:50 AM CDT Body Mass Index 27.81 11/24/2023 8:50 AM CDT Plan of Treatment Not on file Insurance [employer] MEDICARE [employer] MEDICARE [facility] Address: [facility] [address] [place] [address] [facility] Advance Directives For more information, please contact: [phone] * Full Code (Latest Code Status on File) Date Activated Date Inactivated Comments 06/30/2018 12:34 PM 06/30/2018 4:50 PM * Full Code Date Activated Date Inactivated Comments 06/11/2018 9:21 AM 06/14/2018 8:22 PM Care Teams Primer Charger Relationship Specialty Start Date End Date Rolando Spears MD PCP - General Family Practice 04/28/23
--- OUTSIDE RECORDS SUMMARY | 2024-10-24 12:30 | XMS_ITS ---
Author Organization Unknown Address [address] [place] [phone] Phone Care Team Providers Care Plant Superintendent Name Role Phone LUISITO BELL Attending Unavailable [...]
--- OUTSIDE RECORDS SUMMARY | 2024-10-24 12:30 | XMS_ITS ---
Author Organization Unknown Address [address] [place] [address] [phone] Phone Care Team Providers Care Principal Embedded Software Engineer Name Role Phone LUISITO BELL Attending Unavailable NOT ON [facility] Secondary Unavailable Results TROPONIN T, 2 HOUR, 5TH GEN - Collect Date/Time: 03/12/2023 20:25 [facility] ID: [id number] [address] [place] [address], [phone] LOINC: 6598-7 Test Value Unit Reference Range Code Code System Flag TROPONIN T, 2 HR 9 ng/L L=0 H=10 DELTA 2HR TROPONIN T 1 ng/L L=-3 H=3 URINALYSIS - Collect Date/Ti me: 03/12/2023 19:48 [facility] ID: [id number] [address] [place] [address], [id number] LOINC: 29744-3 Test Value Unit Reference Range Code Code System Flag SPECIMEN TYPE: CLEAN CATCH CC Kit Chg? YES U COLOR YELLOW NORMAL: YELLOW 6824-7 LOINC U CLARITY CLEAR NORMAL: CLEAR 45688-7 LOINC U GLUCOSE NEGATIVE NORMAL: NEGATIVE 96811-5 LOINC U BILIRUBIN NEGATIVE NORMAL: NEGATIVE 08952-6 LOINC U KETONE NEGATIVE NORMAL: NEGATIVE 30037-3 LOINC U SP GRAVITY 1.010 1.015 - 1.025 22380-9 LOINC A U BLOOD NEGATIVE NORMAL: NEGATIVE 22949-0 LOINC U pH 6.5 5.0 - 8.0 91875-0 LOINC U PROTEIN NEGATIVE NORMAL: NEGATIVE 65430-4 LOINC UROBILINOGEN 0.2 0-1 E.U./dL 24974-6 LOINC U NITRITE NEGATIVE NORMAL: NEGATIVE 74987-8 LOINC U LEUKOCYTES NEGATIVE NORMAL: NEGATIVE Microscopic NOT PERFORMED BNP (NT pro-BNP) - Collect D ate/Time: 03/12/2023 18:15 [facility] ID: [id number] [address] [place] [address], [id number] LOINC: 68550-1 Test Value Unit Reference Range Code Code System Flag NT proBNP 228 pg/ml L=0 H=450 58327-1 LOINC TROPONIN T, BASELINE, 5TH GE N w/REFLEX - Collect Date/Time: 03/12/2023 18:15 [facility] ID: [id number] [address] [place] [address], [id number] LOINC: 6598-7 Test Value Unit Reference Range Code Code System Flag TROPONIN T BASELINE 8 ng/L L=0 H=10 PT(INR) / PTT - Collect Date /Time: 03/12/2023 18:15 [facility] ID: [id number] [address] [place] [address], [phone] LOINC: 45462-5 Test Value Unit Reference Range Code Code System Flag INR 0.9 L=0.9 H=1.2 6301-6 LOINC PTT W/O HEP 26 sec L=23 H=35 18834-8 LOINC PTT W HEP L=66 H=102 38445-5 LOINC PT ON IV HEPARIN? NO D-DIMER - Collect Date/Time: 03/12/2023 18:15 [facility] ID: [id number] [address] [place] [address], [id number] LOINC: 03956-9 Test Value Unit Reference Range Code Code System Flag D-Dimer 1.47 ug/mL FEU L=0.00 H=0.50 H CBC w/AUTOMATED DIFF - Colle ct Date/Time: 03/12/2023 18:15 [facility] ID: [id number] [address] [place] [address], [id number] LOINC: 88280-0 Test Value Unit Reference Range Code Code [...] 0.0 th/ul 704-7 LOINC #IG 0.1 th/uL 89187-1 LOINC NRBC 0 /100 WBC L=0 H=0 MANUAL DIFF NOT INDICATED 02686-7 LOINC C REACTIVE PROTEIN - Collect Date/Time: 03/12/2023 18:15 [facility] ID: [id number] [address] [place] [address], [id number] LOINC: 07400-8 Test Value Unit Reference Range Code Code System Flag C-REACTIVE PROTEIN < 3.0 mg/L L=0.0 H=5.0 1988- LOINC MAGNESIUM - Collect Date/Jordon e: 03/12/2023 18:15 [facility] ID: [id number] [address] [place] [address], [id number] LOINC: 51487-0 Test Value Unit Reference Range Code Code System Flag MAGNESIUM 1.9 MG/DL L=1.6 H=2.6 55948-8 LOINC TSH (THYROID STIMULATING HOR JOSÉ MIGUEL) - Collect Date/Time: 03/12/2023 18:15 [facility] ID: [id number] [address] [place] [address], [id number] LOINC: 01372-8 Test Value Unit Reference Range Code Code System Flag TSH 2.50 uIU/ml L=0.27 H=4.20 91712-1 LOINC FREE T4 - Collect Date/Time: 03/12/2023 18:15 [facility] ID: [id number] [address] [place] [address], [id number] LOINC: 3024-7 Test Value Unit Reference Range Code Code System Flag FREE T4 0.98 ng/dl L=0.75 H=1.70 3024-7 LOINC LIPASE - Collect Date/Time: 03/12/2023 18:15 [facility] ID: [id number] [address] [place] [address], [id number] LOINC: 3040-3 Test Value Unit Reference Range Code Code System Flag LIPASE 27 U/L L=13 H=60 3040-3 LOINC COMP METAB PROFILE w/ANION G AP - Collect Date/Time: 03/12/2023 18:15 [facility] ID: [id number] [address] [place] [address], [phone] LOINC: 18263-9 Test Value Unit Reference Range Code Code System Flag SODIUM 137 mmol/L L=136 H=145 2951-2 LOINC POTASSIUM 3.7 mmol/L L=3.5 H=5.0 2823-3 LOINC CHLORIDE 101 mmol/L L=98 H=107 2075-0 LOINC CO2 23.2 mmol/L L=22.0 H=29.0 1962-0 LOINC BUN 13 mg/dl L=6 H=21 3094-0 LOINC CREATININE 0.7 mg/dl L=0.5 H=0.9 2160-0 LOINC GLUCOSE 102 mg/dl L=74 H=109 2345-7 LOINC CALCIUM 8.9 mg/dl L=8.6 H=10.5 11457-4 LOINC SGOT(AST) 17 U/L L=5 H=32 1920-8 LOINC SGPT(ALT) 16 U/L L=5 H=33 1744-2 LOINC ALKALINE PHOS 69 U/L L=35 H=104 6768-6 LOINC BILIRUBIN T 0.49 mg/dl L=0.00 H=1.20 1975-2 LOINC TOTAL PROTEIN 6.5 g/dL L=6.1 H=8.1 2885-2 LOINC ALBUMIN 4.5 g/dl L=3.5 H=5.2 1751-7 LOINC GLOBULIN 2.0 g/dl L=2.3 H=3.5 02812-1 LOINC L A/G RATIO 2.3 % L=1.0 H=1.8 1759-0 LOINC H AGE 83 yrs 53690-2 LOINC GFR-AA 103 L=60 H=999 32123-9 LOINC GFR-NON AA 85 L=60 H=999 46166-3 LOINC ANION GAP 12.8 mmol/L L=8.0 H=16.0 21059-4 LOINC CTA ABDOMEN W - Completed: 0 03/12/2023 19:28 LOINC: [No content] CTA CHEST W - Completed: 19:22 LOINC: 30184-0 [No content] Social History Type Status Start [...] Date Inactive Da te Imaging Narrative Notes [facility] \TM00\12FI\LM03\RM80\DRAo\BM09\ \MRHo\ [address] [address] ---------NAME--------- NUMBER SEX AGE ADMIT DISC. XRAY# F/C TYPE SELVIN COATES [id number] F 83 03/12/23 O/P DATE OF : 1940 M/R# [id number] PH#: RM \MRHx\ LOCATION: TRANSCRIBED: 03/12/23 19:24 CTA ABDOMEN W [id number] COMPLETED:03/12/23 19:28 brian [id number] [facility] PHYSICIAN: LUISITO BEST RADIOLOGY REPORT ORDER DATE and TIME: 03/12/2023 1816 [id number] CTA ABDOMEN W DATE OF SERVICE: 03/12/23 [...] M.D. ELECTRONICALLY SIGNED BY: Marino Cohen M.D. Warp Hand Initials: TS Warp Hand Time: 19:24 Warp Hand Date: 03/12/23 Signed Date/Time: 03/12/23 19:24 UNSIGNED TRANSCRIPTIONS ARE PRELIMINARY REPORTS AND DO NOT REPRESENT MEDICAL OR LEGAL DOCUMENTS. [facility] \TM00\12FI\LM03\RM80\DRAo\BM09\ \MRHo\ [address] [address] ---------NAME--------- NUMBER SEX AGE ADMIT DISC. XRAY# F/C TYPE ZACANER AMINATA [id number] F 83 03/12/23 O/P DATE OF : 1940 M/R# [id number] PH#: RM \MRHx\ LOCATION: TRANSCRIBED: 03/12/23 19:17 CTA CHEST W [id number] COMPLETED:03/12/23 19:22 brian [id number] [facility] PHYSICIAN: LUISITO MAR RADIOLOGY REPORT ORDER DATE and TIME: 03/12/2023 1816 [id number] CTA CHEST W DATE OF SERVICE: 03/12/23 [...] M.D. ELECTRONICALLY SIGNED BY: CHARLENE ZULETA M.D. Warp Hand Initials: CB Warp Hand Time: 19:17 Warp Hand Date: 03/12/23 Signed Date/Time: 03/12/23 19:17 UNSIGNED TRANSCRIPTIONS ARE PRELIMINARY REPORTS AND DO NOT REPRESENT MEDICAL OR LEGAL DOCUMENTS. Laboratory Narrative Notes
--- OUTSIDE RECORDS SUMMARY | 2024-10-24 12:31 | XMS_ITS | Clinical Summary ---
Author Organization [facility] Address [address] [place] [phone] Care Team Providers Care Inventory Representative Name Role Phone Rolando Spears MD Primary Care Provider [phone] Allergies No known active allergies Medications alendronate [...] (06/07/2018): Added automatically from request for surgery [id number] Screen for colon cancer 05/26/2018 Overview (05/26/2018): Added automatically from request for surgery [id number] Abdominal pain, lower 04/26/2018 Surgical History Surgery [...] 36.3 C (97.4 F) 07/19/2018 3:14 PM [employer]IC Respiratory Rate 18 06/30/2018 2:00 PM [employer] Oxygen Saturation 97% 11/24/2023 8:50 AM CDT [...] 04/02/2021, 09/02/2020, Additional history exists Influenza Vaccine (Season Ended) 2025 03/04/2022, 2021, 03/12/2020, Additional history exists DTaP/Tdap/Td Vaccine (2 - Td or Tdap) 03/12/2030 03/12/2020 Zoster Vaccine Completed 06/21/2018, 03/06/2018 Insurance MEDICARE [employer] MEDICARE Member Subscriber Plan / Payer ( fective 2005-Present) Name:Venessa Gifford Member ID:[id number] Relation to Subscriber:Self Name:Venessa Gifford Subscriber ID:[id number] Payer ID:[id number] Group ID:Not on file Type:MEDICARE TRADITIONAL Address: [place] [phone] [facility] Member Subscriber Plan / Payer ( fective 2005-Present) Name:Venessa Gifford Member ID:[id number] Relation to Subscriber:Self Name:BrayankleberVenessa Subscriber ID:[id number] Payer ID:[id number] Group ID:Not on file Type:MEDICARE TRADITIONAL Address: [place] [phone] [employer] Advance Directives For more information, please contact: [phone] * Full Code (Latest Code Status on File) Date Activated Date Inactivated Comments 06/30/2018 12:34 PM 06/30/2018 4:50 PM * Full Code Date Activated Date Inactivated Comments 06/11/2018 9:21 AM 06/14/2018 8:22 PM Care Teams Inventory Representative Relationship Specialty Start Date End Date Rolando Spears MD PCP - General Family Practice 04/28/23
--- NOTE | 2024-10-24 13:00 | ED_ITS ---
HPI - Head Injury General Chief complaint: Head Injury Stated complaint: Fell-head laceration, no LOC. On Eliquis Time Seen by Provider: 10/24/24 12:35 Source: patient Mode of arrival: ambulatory Limitations: no limitations History of Present Illness HPI Narrative: This is an 84-year-old female with history of paroxysmal AFib on Eliquis, who presents emergency department complaining a laceration to head head injury. The patient states she tripped over crash can fell forward striking the top of her head on the lip with the can. She denies loss of consciousness focal weakness/numbness. She describes pain as dull in moderate to severe. She has no other complaints at this time. Related Data Home Medications ?Medication ?Instructions ?Recorded ?Confirmed ?Last Taken ?Type fluticasone propionate 50 1 spray intranasal DAILY 04/11/22 09/13/24 03/15/23 08:00 History mcg/actuation nasal spray,suspension vit C 250 mg-vit E 90 mg-zinc 40 1 tablet PO BID 04/11/22 09/13/24 03/15/23 19:00 History mg-copper 1 [id number] capsule (PreserVision AREDS-2) calcium 500 mg-vitamin D3 200 1 tablet PO BID 08/12/22 09/13/24 03/15/23 08:00 History unit-vitamin K 40 mcg chewable tablet cetirizine 10 mg tablet (Zyrtec) 10 mg PO DAILY 03/16/23 09/13/24 03/15/23 08:00 History multivitamin-ferrous 2 tablet PO DAILY 03/16/23 09/13/24 03/15/23 08:00 History fumarate-folic acid 18 mg-400 mcg tablet (Centrum Women) tolterodine 4 mg capsule,extended 4 mg PO DAILY 03/16/23 09/13/24 03/15/23 08:00 History release 24 hr (Detrol LA) apixaban 2.5 mg tablet (Eliquis) 5 mg PO BID 08/24/23 09/13/24 Unknown History lifitegrast 5 % eye drops in a 1 drp EACH EYE BID 03/01/24 09/13/24 Unknown History dropperette (Xiidra) ferrous sulfate 27 mg iron tablet 27 mg PO DAILY 09/13/24 09/13/24 Unknown History Allergies Allergy/AdvReac Type Severity Reaction Status Date / Time No Known Allergies Allergy Verified 10/24/24 12:12 Review of Systems Review of Systems: All systems reviewed & are unremarkable except as noted in HPI and below PMFSH Past Medical History Medical History Osteoporosis ALECIA (obstructive sleep apnea) Graves disease Chronic anticoagulation Paroxysmal atrial fibrillation Small bowel obstruction Vitamin D deficiency Spinal stenosis of lumbar region with radiculopathy GERD without esophagitis Overactive bladder B12 deficiency COVID-19 Memory loss Hyperlipidemia Arthritis Iron deficiency Glucose intolerance Restless leg syndrome Surgical History Surgical History History of hysterectomy History of partial thyroidectomy History of colostomy reversal History of colonoscopy complicated by bowel perforation requiring diverting loop ileostomy status post takedown in June 2013. Family History Family History Mother Family history of cardiovascular disease Sibling Carcinoma of colon Father Cerebrovascular accident 2 strokes, age 94 Sibling Family history of malignant neoplasm Sibling Lung cancer Sibling Lung cancer Other Parents Social History Social History Social History: Surrogate medical decision maker: Graciela Guzman, daughter. Code status: Full code. Smoking status: Never smoker Second hand tobacco smoke exposure: Yes Alcohol intake: never Substance use: never Substance use type: does not use Lack of Transportation: No Lack of Food: Never True Current Housing: I Have Housing Concerned About Future Housing: No Difficulty Paying Gas/Electric Bills: No Difficulty Paying for Meds: No Currently Unemployed: No Education: High School Diploma/GED Difficulty w/ Childcare or Family Care: No Additional living arrangements comments: . Has 3 children. 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 She walks 3-4 miles a day. Spiritual care concerns: No Exam Narrative: GENERAL: Well-developed, well-nourished, and in no acute distress. HEAD: Normocephalic, there is an approximately 20 cm laceration noted the vertex of the scalp bleeding is controlled. EYES: PERRLA and EOMI. ENT: Nares clear, no rhinorrhea or epistaxis. Mucous membranes moist. Oropharynx without tonsillar hypertrophy exudate or other lesions. Bilateral TMs pearly rolle nonbulging no hemotympanum NECK: In a C-collar. No midline spine tenderness to palpation, no step-off or crepitus CHEST: Clear to auscultation. No respiratory distress. No wheezes rales or rhonchi HEART: Regular rate and rhythm. No murmur heard. Normal peripheral pulses. ABDOMEN: Soft, nontender, nondistended, normal active bowel sounds. BACK: No midline spine tenderness to palpation, no step-off or crepitus EXTREMITIES: Normal range of motion. No edema. SKIN: Warm, dry, no rash. NEURO: Alert and oriented x3. No focal deficit. Strength 5/5 in all extremities, sensation intact bilaterally, noted ataxia, cranial nerves 2-12 intact PSYCH: Normal mood and affect. Course Course Emergency Course: 14:53 - CT of the head not concerning for intracranial bleeding or skull fracture. CT cervical spine negative for fracture or dislocation. The patient's laceration was closed by me. C-collar cleared by me. Please see procedure note. I suspect a concussion. Will discharge with recommendation for wound care primary care follow-up. I discussed the findings and recommendations with patient. Discussed return and emergency precautions including signs/symptoms of intracranial hemorrhage and wound infection. The patient voiced understanding and agreement with the plan. All questions answered to her satisfaction. Vital Signs Vital signs: Vital Signs Temperature 97.9 F 10/24/24 12:13 Pulse Rate 72 10/24/24 12:13 Respiratory Rate 16 10/24/24 12:13 Blood Pressure 179/61 H 10/24/24 12:13 Pulse Oximetry 98 10/24/24 12:13 Oxygen Delivery Room Air 10/24/24 12:13 Temperature 97.9 F 10/24/24 12:13 Pulse Rate 67 10/24/24 13:30 Respiratory Rate 17 10/24/24 13:30 Blood Pressure 167/73 H 10/24/24 13:30 Pulse Oximetry 99 10/24/24 13:30 Oxygen Delivery Room Air 10/24/24 12:13 Procedures Laceration Laceration 1: Date: 10/24/24 Time: 14:30 Site: scalp Size (cm): 20 Description: linear Depth: simple, single layer Local Anesthetic: none Pre-repair: wound explored and irrigated ====== Skin Level ====== Skin layer closed with: dev (#12) ====== Subcutaneous Layer ====== ====== Muscle Layer ====== ====== Tendon Layer ====== MDM - Head Injury MDM Narrative Medical decision making narrative: Plan: Imaging, pain control, antiemetics, laceration repair, reassess Differential Diagnosis Differential diagnosis: Likely concussion without loss of consciousness and other (Scalp laceration, intracranial hemorrhage, skull fracture, cervical spine fracture, contusion, other) Discharge Plan Discharge Clinical Impression: Laceration of scalp Qualifiers: Encounter type: initial encounter Qualified Code(s): S01.01XA - Laceration without foreign body of scalp, initial encounter Head pain Qualifiers: Headache type: post-traumatic Headache chronicity pattern: acute headache Intractability: not intractable Qualified Code(s): G44.319 - Acute post- traumatic headache, not intractable Concussion Qualifiers: Encounter type: initial encounter Loss of consciousness presence/duration: without LOC Qualified Code(s): S06.0X0A - Concussion without loss of consciousness, initial encounter Patient Disposition: Home Condition: Stable Instructions: Antibiotic Form, Laceration (ED), Concussion (ED), Staple Care (ED) Additional Instructions: You were seen in the emergency department. A scan of the head was not concerning for bleeding in the brain or skull fracture. A scan of the neck was not concerning for cervical spine fracture or dislocation. Twelve dev were placed in the scalp to close the wound. I recommend following up in approximately 14 days for staple removal.. If you develop fevers with rapidly spreading redness, persistent vomiting, weakness/numbness, change/loss of vision/hearing, or if you have other emergent concerns for life, limb, or eyesight, return to the emergency department. Patient Language: Belarusian Prescriptions: No Action tramadol 50 mg tablet 50 mg PO Q12H PRN (Reason: pain) Qty: 60 1RF Eliquis 2.5 mg tablet 5 mg PO BID ferrous sulfate 27 mg iron tablet 27 mg PO DAILY Xiidra 5 % dropperette 1 drp EACH EYE BID Rx Instructions: administer approximately 12 hours apart cetirizine [Zyrtec] 10 mg Tablet 10 mg PO DAILY tolterodine [Detrol LA] 4 mg Capsule,Extended Release 24hr 4 mg PO DAILY Centrum Women 18-400 mg-mcg Tablet 2 tablet PO DAILY fluticasone propionate 50 mcg/actuation spray,suspension 1 spray INTRANASAL DAILY PreserVision AREDS-2 250-90-40-1 mg Capsule 1 tablet PO BID calcium-vitamin D3-vitamin K 500-200-40 mg-unit-mcg tablet,chewable 1 tablet PO BID diltiazem HCl [Cardizem] 30 mg tablet 30 mg PO BID 30 Days Qty: 60 0RF rosuvastatin 10 mg tablet See Rx Instructions .ROUTE .COMPLEX Qty: 90 2RF Dose Instruction: TAKE 1 TABLET DAILY Rx Instructions: TAKE 1 TABLET DAILY methimazole 5 mg tablet See Rx Instructions .ROUTE .COMPLEX Qty: 90 3RF Dose Instruction: TAKE 1 TABLET DAILY Rx Instructions: TAKE 1 TABLET DAILY alendronate 70 mg tablet See Rx Instructions .ROUTE .COMPLEX Qty: 12 3RF Dose Instruction: TAKE 1 TABLET WEEKLY, TAKE ON SATURDAYS Rx Instructions: TAKE 1 TABLET WEEKLY, TAKE ON SATURDAYS Follow-up/Referrals: UNKNOWN,DOCTOR [Primary Care Provider] - 2 Weeks (for staple removal) Time of Disposition: 14:52
--- OUTSIDE RECORDS SUMMARY | 2024-10-24 13:12 | XMS_ITS ---
Author Organization Unknown Address [address] [place] [address] [phone] Phone Care Team Providers Care Boarding House Manager Name Role Phone LUISITO BELL Attending Unavailable [facility] Secondary Unavailable Results TROPONIN T, 2 HOUR, 5TH GEN - Collect Date/Time: 03/12/2023 20:25 [facility] ID: [id number] [address] [place] [address], [phone] LOINC: 6598-7 Test Value Unit Reference Range Code Code System Flag TROPONIN T, 2 HR 9 ng/L L=0 H=10 DELTA 2HR TROPONIN T 1 ng/L L=-3 H=3 URINALYSIS - Collect Date/Ti me: 03/12/2023 19:48 [facility] ID: [id number] [address] [place] [address], [phone] LOINC: 75094-6 Test Value Unit Reference Range Code Code System Flag SPECIMEN TYPE: CLEAN CATCH CC Kit Chg? YES U COLOR YELLOW NORMAL: YELLOW 6824-7 LOINC U CLARITY CLEAR NORMAL: CLEAR 51842-8 LOINC U GLUCOSE NEGATIVE NORMAL: NEGATIVE 19418-8 LOINC U BILIRUBIN NEGATIVE NORMAL: NEGATIVE 88142-6 LOINC U KETONE NEGATIVE NORMAL: NEGATIVE 32632-1 LOINC U SP GRAVITY 1.010 1.015 - 1.025 20687-3 LOINC A U BLOOD NEGATIVE NORMAL: NEGATIVE 90548-4 LOINC U pH 6.5 5.0 - 8.0 95971-6 LOINC U PROTEIN NEGATIVE NORMAL: NEGATIVE 53247-1 LOINC UROBILINOGEN 0.2 0-1 E.U./dL 96411-9 LOINC U NITRITE NEGATIVE NORMAL: NEGATIVE 23120-6 LOINC U LEUKOCYTES NEGATIVE NORMAL: NEGATIVE Microscopic NOT PERFORMED BNP (NT pro-BNP) - Collect D ate/Time: 03/12/2023 18:15 [facility] ID: [id number] [address] [place] [address], [id number] LOINC: 21187-6 Test Value Unit Reference Range Code Code System Flag NT proBNP 228 pg/ml L=0 H=450 78490-3 LOINC TROPONIN T, BASELINE, 5TH GE N w/REFLEX - Collect Date/Time: 03/12/2023 18:15 [facility] ID: [id number] [address] [place] [address], [phone] LOINC: 6598-7 Test Value Unit Reference Range Code Code System Flag TROPONIN T BASELINE 8 ng/L L=0 H=10 PT(INR) / PTT - Collect Date /Time: 03/12/2023 18:15 [facility] ID: [id number] [address] [place] [address], [phone] LOINC: 29015-4 Test Value Unit Reference Range Code Code System Flag INR 0.9 L=0.9 H=1.2 6301-6 LOINC PTT W/O HEP 26 sec L=23 H=35 56148-5 LOINC PTT W HEP L=66 H=102 67275-5 LOINC PT ON IV HEPARIN? NO D-DIMER - Collect Date/Time: 03/12/2023 18:15 [facility] ID: [id number] [address] [place] [address], [phone] LOINC: 05087-2 Test Value Unit Reference Range Code Code System Flag D-Dimer 1.47 ug/mL FEU L=0.00 H=0.50 H CBC w/AUTOMATED DIFF - Colle ct Date/Time: 03/12/2023 18:15 [facility] ID: [id number] [address] [place] [address], [phone] LOINC: 64204-2 Test Value Unit Reference Range Code Code [...] 0.0 th/ul 704-7 LOINC #IG 0.1 th/uL 87163-3 LOINC NRBC 0 /100 WBC L=0 H=0 MANUAL DIFF NOT INDICATED 49363-3 LOINC C REACTIVE PROTEIN - Collect Date/Time: 03/12/2023 18:15 [facility] ID: [id number] [address] [place] [address], [phone] LOINC: 29448-4 Test Value Unit Reference Range Code Code System Flag C-REACTIVE PROTEIN < 3.0 mg/L L=0.0 H=5.0 1988-5 LOINC MAGNESIUM - Collect Date/Jordon e: 03/12/2023 18:15 [facility] ID: [id number] [address] [place] [address], [phone] LOINC: 83160-5 Test Value Unit Reference Range Code Code System Flag MAGNESIUM 1.9 MG/DL L=1.6 H=2.6 20578-6 LOINC TSH (THYROID STIMULATING HOR JOSÉ MIGUEL) - Collect Date/Time: 03/12/2023 18:15 [facility] ID: [id number] [address] [place] [address], [phone] LOINC: 74611-0 Test Value Unit Reference Range Code Code System Flag TSH 2.50 uIU/ml L=0.27 H=4.20 22882-0 LOINC FREE T4 - Collect Date/Time: 03/12/2023 18:15 [facility] ID: [id number] [address] [place] [address], [phone] LOINC: 3024-7 Test Value Unit Reference Range Code Code System Flag FREE T4 0.98 ng/dl L=0.75 H=1.70 3024-7 LOINC LIPASE - Collect Date/Time: 03/12/2023 18:15 [facility] ID: [id number] [address] [place] [address], [id number] LOINC: 3040-3 Test Value Unit Reference Range Code Code System Flag LIPASE 27 U/L L=13 H=60 3040-3 LOINC COMP METAB PROFILE w/ANION G AP - Collect Date/Time: 03/12/2023 18:15 [facility] ID: [id number] [address] [place] [address], [phone] LOINC: 02009-9 Test Value Unit Reference Range Code Code System Flag SODIUM 137 mmol/L L=136 H=145 2951-2 LOINC POTASSIUM 3.7 mmol/L L=3.5 H=5.0 2823-3 LOINC CHLORIDE 101 mmol/L L=98 H=107 2075-0 LOINC CO2 23.2 mmol/L L=22.0 H=29.0 1962-0 LOINC BUN 13 mg/dl L=6 H=21 3094-0 LOINC CREATININE 0.7 mg/dl L=0.5 H=0.9 2160-0 LOINC GLUCOSE 102 mg/dl L=74 H=109 2345-7 LOINC CALCIUM 8.9 mg/dl L=8.6 H=10.5 23318-1 LOINC SGOT(AST) 17 U/L L=5 H=32 1920-8 LOINC SGPT(ALT) 16 U/L L=5 H=33 1744-2 LOINC ALKALINE PHOS 69 U/L L=35 H=104 6768-6 LOINC BILIRUBIN T 0.49 mg/dl L=0.00 H=1.20 1975-2 LOINC TOTAL PROTEIN 6.5 g/dL L=6.1 H=8.1 2885-2 LOINC ALBUMIN 4.5 g/dl L=3.5 H=5.2 1751-7 LOINC GLOBULIN 2.0 g/dl L=2.3 H=3.5 42465-2 LOINC L A/G RATIO 2.3 % L=1.0 H=1.8 1759-0 LOINC H AGE 83 yrs 09347-5 LOINC GFR-AA 103 L=60 H=999 54677-0 LOINC GFR-NON AA 85 L=60 H=999 39379-1 LOINC ANION GAP 12.8 mmol/L L=8.0 H=16.0 25957-2 LOINC CTA ABDOMEN W - Completed: 0 03/12/2023 19:28 LOINC: [No content] CTA CHEST W - Completed: 19:22 LOINC: 82557-5 [No content] Social History Type Status Start [...] Date Inactive Da te Imaging Narrative Notes [facility] \TM00\12FI\LM03\RM80\DRAo\BM09\ \MRHo\ [address] [address] ---------NAME--------- NUMBER SEX AGE ADMIT DISC. XRAY# F/C TYPE RUFFANER AMINATA [id number] F 83 03/12/23 O/P DATE OF : 1940 M/R# [id number] PH#: RM \MRHx\ LOCATION: TRANSCRIBED: 03/12/23 19:24 CTA ABDOMEN W [id number] COMPLETED:03/12/23 19:28 brian [id number] [facility] PHYSICIAN: LUISITO BEST RADIOLOGY REPORT ORDER DATE and TIME: 03/12/2023 1816 [id number] CTA ABDOMEN W DATE OF SERVICE: 03/12/23 [...] M.D. ELECTRONICALLY SIGNED BY: Marino Cohen M.D. Revenue Analyst Initials: TS Revenue Analyst Time: 19:24 Revenue Analyst Date: 03/12/23 Signed Date/Time: 03/12/23 19:24 UNSIGNED TRANSCRIPTIONS ARE PRELIMINARY REPORTS AND DO NOT REPRESENT MEDICAL OR LEGAL DOCUMENTS. [facility] \TM00\12FI\LM03\RM80\DRAo\BM09\ \MRHo\ [address] [address] ---------NAME--------- NUMBER SEX AGE ADMIT DISC. XRAY# F/C TYPE SELVIN COATES [id number] F 83 03/12/23 O/P DATE OF : 1940 M/R# [id number] PH#: RM \MRHx\ LOCATION: TRANSCRIBED: 03/12/23 19:17 CTA CHEST W 47566 COMPLETED:03/12/23 19:22 brian [id number] [facility] PHYSICIAN: LUISITO BEST RADIOLOGY REPORT ORDER DATE and TIME: 03/12/2023 1816 [id number] CTA CHEST W DATE OF SERVICE: 03/12/23 [...] M.D. ELECTRONICALLY SIGNED BY: CHARLENE ZULETA M.D. Revenue Analyst Initials: CB Revenue Analyst Time: 19:17 Revenue Analyst Date: 03/12/23 Signed Date/Time: 03/12/23 19:17 UNSIGNED TRANSCRIPTIONS ARE PRELIMINARY REPORTS AND DO NOT REPRESENT MEDICAL OR LEGAL DOCUMENTS. Laboratory Narrative Notes
--- OUTSIDE RECORDS SUMMARY | 2024-10-24 13:12 | XMS_ITS ---
Author Organization Unknown Address [address] [place] [phone] Phone Care Team Providers Care Respiratory Therapy Instructor Name Role Phone LUISITO BELL Attending Unavailable [...]
--- OUTSIDE RECORDS SUMMARY | 2024-10-24 13:12 | XMS_ITS | Clinical Summary ---
Author Organization [facility] Address [address] [place] [phone] Care Team Providers Care Key Worker Name Role Phone Rolando Spears MD Primary Care Provider +1 [phone] Allergies No known active allergies Medications alendronate [...] (06/07/2018): Added automatically from request for surgery [id number] Screen for colon cancer 05/26/2018 Overview (05/26/2018): Added automatically from request for surgery [id number] Abdominal pain, lower 04/26/2018 Surgical History Surgery [...] 36.3 C (97.4 F) 07/19/2018 3:14 PM SOLUTION STRATEGIST Respiratory Rate 18 06/30/2018 2:00 PM SOLUTION STRATEGIST Oxygen Saturation 97% 11/24/2023 8:50 AM CDT [...] Zoster Vaccine Completed 06/21/2018, 03/06/2018 Insurance MEDICARE [employer] MEDICARE Member Subscriber Plan / Payer ( fective 2005-Present) Name:Venessa Gifford Member ID:[id number] Relation to Subscriber:Self Name:Venessa Gifford Subscriber ID:[id number] Payer ID:[id number] Group ID:Not on file Type:MEDICARE TRADITIONAL Address: [place] [phone] [facility] Member Subscriber Plan / Payer ( fective 2005-Present) Name:Venessa Gifford Member ID:[id number] Relation to Subscriber:Self Name:BrayankleberVenessa Subscriber ID:[id number] Payer ID:[id number] Group ID:Not on file Type:MEDICARE TRADITIONAL Address: [place] [phone] [employer] Advance Directives For more information, please contact: [phone] * Full Code (Latest Code Status on File) Date Activated Date Inactivated Comments 06/30/2018 12:34 PM 06/30/2018 4:50 PM * Full Code Date Activated Date Inactivated Comments 06/11/2018 9:21 AM 06/14/2018 8:22 PM Care Teams Key Worker Relationship Specialty Start Date End Date Rolando Spears MD PCP - General Family Practice 04/28/23
--- OUTSIDE RECORDS SUMMARY | 2024-10-24 13:12 | XMS_ITS | Referral Summary ---
Author Organization [facility] Address [address] [place] [phone] Care Team Providers Care Product Applications Engineer Name Role Phone Rolando Spears MD Primary Care Provider [phone] [phone] Allergies No known active allergies Medications alendronate [...] (06/07/2018): Added automatically from request for surgery [id number] Screen for colon cancer 05/26/2018 Overview (05/26/2018): Added automatically from request for surgery [id number] Abdominal pain, lower 04/26/2018 Social History Tobacco [...] 36.3 C (97.4 F) 07/19/2018 3:14 PM [employer] Respiratory Rate 18 06/30/2018 2:00 PM [employer] Oxygen Saturation 97% 11/24/2023 8:50 AM CDT Inhaled Oxygen Concentration - - Weight 73.5 kg (162 lb) 11/24/2023 8:50 AM CDT Height 162.6 cm (5' 4 ) 11/24/2023 8:50 AM CDT Body Mass Index 27.81 11/24/2023 8:50 AM CDT Plan of Treatment Not on file Insurance [employer] MEDICARE [employer] MEDICARE [facility] Advance Directives For more information, please contact: [phone] * Full Code (Latest Code Status on File) Date Activated Date Inactivated Comments 06/30/2018 12:34 PM 06/30/2018 4:50 PM * Full Code Date Activated Date Inactivated Comments 06/11/2018 9:21 AM 06/14/2018 8:22 PM Care Teams Product Applications Engineer Relationship Specialty Start Date End Date Rolando Spears MD PCP - General Family Practice 04/28/23
[2024-10-24] MEDS: ONDANSETRON INJ 4 MG/2 ML VIAL IV PUSH (13:15)
[2024-10-24] MEDS: MORPHINE SULFATE (*CRX) 2 MG/ML INJ IV PUSH ×2 (13:17→14:43)
--- NOTE | 2024-10-24 15:00 | PC.NURSE ---
Report given to STEPHEN Cantrell
--- NOTE | 2024-10-24 15:21 | PC.NURSE ---
Dr. Devi at bedside reassessing pt. d/t excess bleeding from staple site. pressure dressing applied. All questions answered by Dr. Devi.
--- NOTE | 2024-10-24 15:50 | PC.NURSE ---
Site has not bleed anymore.
== END 2024-10-24 16:03 | disposition home or self-care (01) ==
PROVIDERS: Emergency Provider Preventive Medicine Aerospace Medicine
DX: S01.01XA Laceration without foreign body of scalp, initial encounter (principal); S06.0X0A Concussion without loss of consciousness, initial encounter; G44.319 Acute post-traumatic headache, not intractable; G47.30 Sleep apnea, unspecified; Z79.01 Long term (current) use of anticoagulants; I48.91 Unspecified atrial fibrillation; K21.9 Gastro-esophageal reflux disease without esophagitis; E78.5 Hyperlipidemia, unspecified; M19.90 Unspecified osteoarthritis, unspecified site; G25.81 Restless legs syndrome; W01.0XXA Fall on same level from slipping, tripping and stumbling without subsequent striking against object, initial encounter
CPT/HCPCS: 12005; 70450; 72125; 96374; 96375; 96376; 99284; J2270; J2405

== ENCOUNTER 2024-12-19 07:24 | Outpatient (CLI) | payer MEDICARE, OTHER, SELFPAY ==
--- NOTE | ~2024-12-19 | MM_ITS ---
EXAMINATION: MM screening usama BI w genna HISTORY: Screening mammogram TECHNIQUE: Craniocaudal and mediolateral oblique 3-D tomosynthesis images were obtained and synthetic 2-D images were generated. CAD analysis was submitted and interpreted. COMPARISON: No prior mammogram is available for comparison at this institution. BREAST PARENCHYMAL COMPOSITION:Not Dense. The breasts are almost entirely fatty FINDINGS: No suspicious mass, calcification, or architectural distortion are identified in either jerome ast to suggest malignancy. There has been no suspicious interval change. IMPRESSION: No mammographic evidence of malignancy. Recommend routine screening mammography in one year. BI-RADS Category 1: Negative Reviewed, dictated and finalized at location .
--- OUTSIDE RECORDS SUMMARY | 2024-12-19 07:27 | XMS_ITS ---
Author Organization Unknown Address [address] [place] [address] [phone] Phone Care Team Providers Care Rod Finisher Name Role Phone LUISITO BELL Attending Unavailable NOT ON [facility] Secondary Unavailable Results TROPONIN T, 2 HOUR, 5TH GEN - Collect Date/Time: 03/12/2023 20:25 [facility] ID: [id number] [address] [place] [address], [phone] LOINC: 6598-7 Test Value Unit Reference Range Code Code System Flag TROPONIN T, 2 HR 9 ng/L L=0 H=10 DELTA 2HR TROPONIN T 1 ng/L L=-3 H=3 URINALYSIS - Collect Date/Ti me: 03/12/2023 19:48 [facility] ID: [id number] [address] [place] [address], [phone] LOINC: 72303-4 Test Value Unit Reference Range Code Code System Flag SPECIMEN TYPE: CLEAN CATCH CC Kit Chg? YES U COLOR YELLOW NORMAL: YELLOW 6824-7 LOINC U CLARITY CLEAR NORMAL: CLEAR 46582-9 LOINC U GLUCOSE NEGATIVE NORMAL: NEGATIVE 31017-6 LOINC U BILIRUBIN NEGATIVE NORMAL: NEGATIVE 64510-2 LOINC U KETONE NEGATIVE NORMAL: NEGATIVE 13307-9 LOINC U SP GRAVITY 1.010 1.015 - 1.025 51576-1 LOINC A U BLOOD NEGATIVE NORMAL: NEGATIVE 37962-9 LOINC U pH 6.5 5.0 - 8.0 37771-3 LOINC U PROTEIN NEGATIVE NORMAL: NEGATIVE 64527-2 LOINC UROBILINOGEN 0.2 0-1 E.U./dL 93163-0 LOINC U NITRITE NEGATIVE NORMAL: NEGATIVE 66202-8 LOINC U LEUKOCYTES NEGATIVE NORMAL: NEGATIVE Microscopic NOT PERFORMED BNP (NT pro-BNP) - Collect D ate/Time: 03/12/2023 18:15 [facility] ID: [id number] [address] [place] [address], [phone] LOINC: 94699-5 Test Value Unit Reference Range Code Code System Flag NT proBNP 228 pg/ml L=0 H=450 48997-0 LOINC TROPONIN T, BASELINE, 5TH GE N w/REFLEX - Collect Date/Time: 03/12/2023 18:15 [facility] ID: [id number] [address] [place] [address], [phone] LOINC: 6598-7 Test Value Unit Reference Range Code Code System Flag TROPONIN T BASELINE 8 ng/L L=0 H=10 PT(INR) / PTT - Collect Date /Time: 03/12/2023 18:15 [facility] ID: [id number] [address] [place] [address], [phone] LOINC: 03103-1 Test Value Unit Reference Range Code Code System Flag INR 0.9 L=0.9 H=1.2 6301-6 LOINC PTT W/O HEP 26 sec L=23 H=35 54661-4 LOINC PTT W HEP L=66 H=102 96129-5 LOINC PT ON IV HEPARIN? NO D-DIMER - Collect Date/Time: 03/12/2023 18:15 [facility] ID: [id number] [address] [place] [address], [phone] LOINC: 14030-7 Test Value Unit Reference Range Code Code System Flag D-Dimer 1.47 ug/mL FEU L=0.00 H=0.50 H CBC w/AUTOMATED DIFF - Colle ct Date/Time: 03/12/2023 18:15 [facility] ID: [id number] [address] [place] [address], [phone] LOINC: 45387-6 Test Value Unit Reference Range Code Code [...] 0.0 th/ul 704-7 LOINC #IG 0.1 th/uL 09661-8 LOINC NRBC 0 /100 WBC L=0 H=0 MANUAL DIFF NOT INDICATED 46203-5 LOINC C REACTIVE PROTEIN - Collect Date/Time: 03/12/2023 18:15 [facility] ID: [id number] [address] [place] [address], [phone] LOINC: 80093-8 Test Value Unit Reference Range Code Code System Flag C-REACTIVE PROTEIN < 3.0 mg/L L=0.0 H=5.0 1988-5 LOINC MAGNESIUM - Collect Date/Jordon e: 03/12/2023 18:15 [facility] ID: [id number] [address] [place] [address], [phone] LOINC: 81007-1 Test Value Unit Reference Range Code Code System Flag MAGNESIUM 1.9 MG/DL L=1.6 H=2.6 68600-7 LOINC TSH (THYROID STIMULATING HOR JOSÉ MIGUEL) - Collect Date/Time: 03/12/2023 18:15 [facility] ID: [id number] [address] [place] [address], [phone] LOINC: 20257-2 Test Value Unit Reference Range Code Code System Flag TSH 2.50 uIU/ml L=0.27 H=4.20 96675-3 LOINC FREE T4 - Collect Date/Time: 03/12/2023 18:15 [facility] ID: [id number] [address] [place] [address], [phone] LOINC: 3024-7 Test Value Unit Reference Range Code Code System Flag FREE T4 0.98 ng/dl L=0.75 H=1.70 3024-7 LOINC LIPASE - Collect Date/Time: 03/12/2023 18:15 [facility] ID: [id number] [address] [place] [address], [phone] LOINC: 3040-3 Test Value Unit Reference Range Code Code System Flag LIPASE 27 U/L L=13 H=60 3040-3 LOINC COMP METAB PROFILE w/ANION G AP - Collect Date/Time: 03/12/2023 18:15 [facility] ID: [id number] [address] [place] [address], [phone] LOINC: 26600-6 Test Value Unit Reference Range Code Code System Flag SODIUM 137 mmol/L L=136 H=145 2951-2 LOINC POTASSIUM 3.7 mmol/L L=3.5 H=5.0 2823-3 LOINC CHLORIDE 101 mmol/L L=98 H=107 2075-0 LOINC CO2 23.2 mmol/L L=22.0 H=29.0 1962-0 LOINC BUN 13 mg/dl L=6 H=21 3094-0 LOINC CREATININE 0.7 mg/dl L=0.5 H=0.9 2160-0 LOINC GLUCOSE 102 mg/dl L=74 H=109 2345-7 LOINC CALCIUM 8.9 mg/dl L=8.6 H=10.5 96705-7 LOINC SGOT(AST) 17 U/L L=5 H=32 1920-8 LOINC SGPT(ALT) 16 U/L L=5 H=33 1744-2 LOINC ALKALINE PHOS 69 U/L L=35 H=104 6768-6 LOINC BILIRUBIN T 0.49 mg/dl L=0.00 H=1.20 1975-2 LOINC TOTAL PROTEIN 6.5 g/dL L=6.1 H=8.1 2885-2 LOINC ALBUMIN 4.5 g/dl L=3.5 H=5.2 1751-7 LOINC GLOBULIN 2.0 g/dl L=2.3 H=3.5 38156-4 LOINC L A/G RATIO 2.3 % L=1.0 H=1.8 1759-0 LOINC H AGE 83 yrs 46786-7 LOINC GFR-AA 103 L=60 H=999 30897-1 LOINC GFR-NON AA 85 L=60 H=999 65378-5 LOINC ANION GAP 12.8 mmol/L L=8.0 H=16.0 14352-5 LOINC CTA ABDOMEN W - Completed: 0 03/12/2023 19:28 LOINC: [No content] CTA CHEST W - Completed: 19:22 LOINC: 52515-3 [No content] Social History Type Status Start [...] pain 03/12/2023 SNOMED-CT Personal Care Team Section Imaging Narrative Notes [facility] \TM00\\12FI\\LM03\\RM80\\DRAo\\BM09\ \MRHo\ [address] [address] ---------NAME--------- NUMBER SEX AGE ADMIT DISC. XRAY# F/C TYPE SELVIN AMINATA [id number] F 83 03/12/23 O/P DATE OF : 1940 M/R# [id number] PH#: RM \MRHx\ LOCATION: TRANSCRIBED: 03/12/23 19:24 CTA ABDOMEN W [id number] COMPLETED:03/12/23 19:28 brian [address] [facility] PHYSICIAN: LUISITO BEST RADIOLOGY REPORT ORDER DATE and TIME: 03/12/2023 1816 [id number] CTA ABDOMEN W DATE OF SERVICE: 03/12/23 [...] M.D. ELECTRONICALLY SIGNED BY: Marino Cohen M.D. Shell Core And Molding Supervisor Initials: TS Shell Core And M[employer] Supervisor Time: 19:24 Shell [employer] And M[employer] Supervisor Date: 03/12/23 Signed Date/Time: 03/12/23 19:24 UNSIGNED TRANSCRIPTIONS ARE PRELIMINARY REPORTS AND DO NOT REPRESENT MEDICAL OR LEGAL DOCUMENTS. [facility] \TM00\\12FI\\LM03\\RM80\\DRAo\\BM09\ \MRHo\ [address] [address] ---------NAME--------- NUMBER SEX AGE ADMIT DISC. XRAY# F/C TYPE ZACJOSE DAMONMA [id number] F 83 03/12/23 O/P DATE OF : 1940 M/R# [id number] PH#: RM \MRHx\ LOCATION: TRANSCRIBED: 03/12/23 19:17 CTA CHEST W 95076 COMPLETED:03/12/23 19:22 brian [address] [facility] PHYSICIAN: LUISITO BEST RADIOLOGY REPORT ORDER DATE and TIME: 03/12/2023 1816 [id number] CTA CHEST W DATE OF SERVICE: 03/12/23 [...] M.D. ELECTRONICALLY SIGNED BY: CHARLENE ZULETA M.D. [employer] M[employer] Supervisor Initials: CB [employer] And M[employer] Supervisor Time: 19:17 Shell [employer] And M[employer] Supervisor Date: 03/12/23 Signed Date/Time: 03/12/23 19:17 UNSIGNED TRANSCRIPTIONS ARE PRELIMINARY REPORTS AND DO NOT REPRESENT MEDICAL OR LEGAL DOCUMENTS. Laboratory Narrative Notes
--- OUTSIDE RECORDS SUMMARY | 2024-12-19 07:27 | XMS_ITS ---
Author Organization Unknown Address [address] [place] [address] [phone] Phone Care Team Providers Care Fur Polisher Name Role Phone LUISITO BELL Attending Unavailable [...]
--- OUTSIDE RECORDS SUMMARY | 2024-12-19 07:27 | XMS_ITS | Referral Summary ---
Author Organization [facility] Address [address] [place] [id number] Care Team Providers Care Cable Systems Installer Name Role Phone Vladimir Thacker DO Primary Care Provider [phone] Encounters Date Type Department Care Team Description 12/04/2024 10:45 AM CDT Office Visit [facility] Cardiology [address] [place] [address] Tj Harding MD Paroxysmal atrial fibrillation (HCC) (Primary Dx) from Last 3 Months Allergies No known active allergies Medications alendronate [...] Xiidra 5 % dropperette 11/04/19 24 Active dilTIAZem (CARDIZEM) 30 mg tabletIndications:P aroxysmal atrial fibrillation (HCC) TAKE 1 TABLET TWICE A DAY MAY TAKE AN EXTRA 1 TABLET IF NEEDED FOR EPISODES OF ATRIAL FIBRILLATION 180 tablet 3 05/11/20 24 Active apixaban (Eliquis) 5 mg tabletIndications:P aroxysmal atrial fibrillation (HCC),Chronic anticoagulation TAKE 1 TABLET TWICE A DAY 180 tablet 11/16/19 25 Active Active Problems Problem Noted Date Diagnosed [...] (06/07/2018): Added automatically from request for surgery [id number] Screen for colon cancer 05/26/2018 Overview (05/26/2018): Added automatically from request for surgery [id number] Abdominal pain, lower 04/26/2018 Social History Tobacco Use Types Packs/Day Years Used Date Smoking Tobacco: Never Smokeless Tobacco: Never Tobacco Cessation:Counseling Given: Not Answered Alcohol Use Standard Drinks/Week Comments No 0 (1 standard drink = 0.6 oz pur e alcohol) Comments No Sex and Gender Information Value Date Recorded Sex Assigned at Not on file Legal Sex Female 10:18 AM CDT Gender Identity Not on file Sexual Orientation Not on file Last Filed Vital Signs Vital Sign Reading Time Taken Comments Blood Pressure 134/68 12/04/2024 10:31 AM CDT Pulse 64 12/04/2024 10:31 AM CDT Temperature 36.3 C (97.4 F) 07/19/2018 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 Respiratory Rate 16 12/04/2024 10:31 AM CDT Oxygen Saturation 97% 12/04/2024 10:31 AM CDT Inhaled Oxygen Concentration - - Weight 73 kg (161 lb) 12/04/2024 10:31 AM CDT Height 162.6 cm (5' 4) 12/04/2024 10:31 AM CDT Body Mass Index 27.64 12/04/2024 10:31 AM CDT Plan of Treatment Not on file Procedures Procedure Name Priority Date/Time Associated Diagnosis Comments ECG 12-LEAD Routine 12/04/2024 10:45 AM CDT Paroxysmal atrial fibrillation (HCC) ELECTROCARDIOGRAM REPORT Routine 12/04/2024 Paroxysmal atrial fibrillation (HCC) from Last 3 Months Results * ECG 12 lead (12/04/2024 10:45 AM CDT) us Tj Harding MD ECG ORDERABLES Final Result * Electrocardiogram Report (12/04/2024) 12/04/2024 us Tj Harding MD ECG ORDERABLES Final Result from Last 3 Months Insurance MEDICARE [employer] MEDICARE FOR LIFE MEDICARE FOR LIFE Advance Directives For more information, please contact: [phone] * Full Code (Latest Code Status on File) Date Activated Date Inactivated Comments 06/30/2018 12:34 PM 06/30/2018 4:50 PM * Full Code Date Activated Date Inactivated Comments 06/11/2018 9:21 AM 06/14/2018 8:22 PM 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
--- OUTSIDE RECORDS SUMMARY | 2024-12-19 07:27 | XMS_ITS | Clinical Summary ---
Author Organization [facility] Address [address] [place] [id number] Care Team Providers Care Private Eye Name Role Phone Vladimir Thacker DO Primary Care Provider [phone] Allergies No known active allergies Medications alendronate [...] (06/07/2018): Added automatically from request for surgery [id number] Screen for colon cancer 05/26/2018 Overview (05/26/2018): Added automatically from request for surgery [id number] Abdominal pain, lower 04/26/2018 Encounters Date Type Department Care Team Description 12/04/2024 10:45 AM CDT Office Visit [facility] Cardiology [address] [place] [address] Tj Harding MD Paroxysmal atrial fibrillation (HCC) (Primary Dx) from Last 3 Months Surgical History Surgery Date Site/Laterality Comments HYSTERECTOMY [...] 36.3 C (97.4 F) 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 Respiratory Rate 16 12/04/2024 10:31 AM CDT Oxygen Saturation 97% 12/04/2024 10:31 AM CDT Inhaled Oxygen Concentration - - Weight 73 kg (161 lb) 12/04/2024 10:31 AM CDT Height 162.6 cm (5' 4) 12/04/2024 10:31 AM CDT Body Mass Index 27.64 12/04/2024 10:31 AM CDT Plan of Treatment Health Maintenance Due Date Last Done Comments Depression Screening 1940 Fall Risk Assessment 1940 Osteoporosis Screening-Bone Density Scan 1940 Hepatitis B Screening 1958 Well Visit 65+ 2005 Pneumococcal vaccine 65+ (2 of 2 - PPSV23) 03/12/2021 03/12/2020 Covid-19 Vaccine (5 - 2023-2 5 season) 2024 03/04/2022, 04/02/2021, 09/02/2020, Additional history exists Influenza Vaccine (Season Ended) 2025 03/04/2022, 2021, 03/12/2020, Additional history exists DTaP/Tdap/Td Vaccine (2 - Td or Tdap) 03/12/2030 03/12/2020 Zoster Vaccine Completed 06/21/2018, 03/06/2018 Procedures Procedure Name Priority Date/Time Associated Diagnosis Comments ECG 12-LEAD Routine 12/04/2024 10:45 AM CDT Paroxysmal atrial fibrillation (HCC) ELECTROCARDIOGRAM REPORT Routine 12/04/2024 Paroxysmal atrial fibrillation (HCC) from Last 3 Months Results * ECG 12 lead (12/04/2024 10:45 AM CDT) us Tj Harding MD ECG ORDERABLES Final Result * Electrocardiogram Report (12/04/2024) 12/04/2024 Tj Harding MD ECG ORDERABLES Final Result from Last 3 Months Insurance MEDICARE [employer] MEDICARE [employer] MEDICARE [facility] FOR LIFE Advance Directives For more information, please contact: [phone] * Full Code (Latest Code Status on File) Date Activated Date Inactivated Comments 06/30/2018 12:34 PM 06/30/2018 4:50 PM * Full Code Date Activated Date Inactivated Comments 06/11/2018 9:21 AM 06/14/2018 8:22 PM Care Teams Private Eye Relationship Specialty Start Date End Date Vladimir Thacker DO [address] [facility] [address] [place] [address] PCP - General Internal Medicine 12/04/24
== END 2024-12-19 07:25 | disposition home or self-care (01) ==
PROVIDERS: PCP Nurse Practitioner; Visit Provider Nurse Practitioner
DX: Z12.31 Encounter for screening mammogram for malignant neoplasm of breast (principal)
CPT/HCPCS: 77063; 77067

== ENCOUNTER 2024-12-24 08:05 | Emergency (ER) | payer MEDICARE, OTHER, SELFPAY ==
[2024-12-24 08:16] VITALS: BP 133/71; PULSE 60; RESP 16; TEMP 35.8; O2SAT 98
--- NOTE | 2024-12-24 08:33 | ED_ITS ---
HPI - Dental/Oral General Chief complaint: Dental/Oral Stated complaint: Tooth Ache Time Seen by Provider: 12/24/24 08:23 Source: patient Mode of arrival: ambulatory History of Present Illness HPI Narrative: 84-year-old female presented for complaint of pain to left lower back teeth and left side of tongue. Onset 12/21, after she had a temporary crown and dental work done. Says she had swelling initially which has resolved. Endorses painful swallow and pain to the left side of the neck with swallowing. Took Tylenol. Denies sob, wheezing, difficulty maintaining secretions or fever. MD Complaint: tooth pain Related Data Home Medications ?Medication ?Instructions ?Recorded ?Confirmed ?Last Taken ?Type fluticasone propionate 50 1 spray intranasal DAILY 04/11/22 11/05/24 03/15/23 08:00 History mcg/actuation nasal spray,suspension vit C 250 mg-vit E 90 mg-zinc 40 1 tablet PO BID 04/11/22 11/05/24 03/15/23 19:00 History mg-copper 1 [id number] capsule (PreserVision AREDS-2) calcium 500 mg-vitamin D3 200 1 tablet PO BID 08/12/22 11/05/24 03/15/23 08:00 History unit-vitamin K 40 mcg chewable tablet cetirizine 10 mg tablet (Zyrtec) 10 mg PO DAILY 03/16/23 11/05/24 03/15/23 08:00 History multivitamin-ferrous 2 tablet PO DAILY 03/16/23 11/05/24 03/15/23 08:00 History fumarate-folic acid 18 mg-400 mcg tablet (Centrum Women) tolterodine 4 mg capsule,extended 4 mg PO DAILY 03/16/23 11/05/24 03/15/23 08:00 History release 24 hr (Detrol LA) apixaban 2.5 mg tablet (Eliquis) 5 mg PO BID 08/24/23 11/05/24 Unknown History lifitegrast 5 % eye drops in a 1 drp EACH EYE BID 03/01/24 11/05/24 Unknown History dropperette (Xiidra) ferrous sulfate 27 mg iron tablet 27 mg PO DAILY 09/13/24 11/05/24 Unknown History apixaban 5 mg tablet (Eliquis) mg 12/24/24 Unknown History hydrocortisone 2.5 % topical cream applic topical 12/24/24 Unknown History Allergies Allergy/AdvReac Type Severity Reaction Status Date / Time No Known Allergies Allergy Verified 12/24/24 08:26 Review of Systems Review of Systems: CONSTITUTIONAL: Denies body aches, fever, chills ENT: Denies rhinorrhea, congestion, sore throat, or otalgia. Reports left dental and gum pain CARDIOVASCULAR: Denies chest pain, palpitations RESPIRATORY: Denies cough or dyspnea. SKIN: Denies rash, itching, or wounds. MUSCULOSKELETAL: Denies myalgia. NEUROLOGIC: Denies headache, numbness, tingling, or weakness. [facility] Past Medical History Medical History Osteoporosis ALECIA (obstructive sleep apnea) Graves disease Chronic anticoagulation Paroxysmal atrial fibrillation Small bowel obstruction Vitamin D deficiency Spinal stenosis of lumbar region with radiculopathy GERD without esophagitis Overactive bladder B12 deficiency COVID-19 Memory loss Hyperlipidemia Arthritis Iron deficiency Glucose intolerance Restless leg syndrome Surgical History Surgical History History of hysterectomy History of partial thyroidectomy History of colostomy reversal History of colonoscopy complicated by bowel perforation requiring diverting loop ileostomy status post takedown in June 2013. Family History Family History Mother Family history of cardiovascular disease Sibling Carcinoma of colon Father Cerebrovascular accident 2 strokes, age 94 Sibling Family history of malignant neoplasm Sibling Lung cancer Sibling Lung cancer Other Parents Social History Social History Social History: Surrogate medical decision maker: Graciela Guzman, daughter. Code status: Full code. Smoking status: Never smoker Second hand tobacco smoke exposure: Yes Alcohol intake: never Substance use: never Substance use type: does not use Lack of Transportation: No Lack of Food: Never True Current Housing: I Have Housing Concerned About Future Housing: No Difficulty Paying Gas/Electric Bills: No Difficulty Paying for Meds: No Currently Unemployed: No Education: High School Diploma/GED Difficulty w/ Childcare or Family Care: No Additional living arrangements comments: . Has 3 children. Likes to stay busy, volunteering at the [employer] and food pantry. She walks 3-4 miles a day. Spiritual care concerns: No Comments At time of signature, I have reviewed and agree with nursing past medical, surgical, social and family history unless otherwise noted. Please see nursing chart for further information. There is no relevant family history pertinent to the presenting complaint Exam Narrative: GENERAL: Appears in mild pain; no acute distress. HEAD: Normocephalic, atraumatic. EYES: EOMI. No redness or drainage. Conjunctivae normal. ENT: Pain reported to area of #17, no tooth noted, gum with erythema and white ulcerated lesions; left tongue with white ulceration <0.5cm diameter, tender with palpation. [place] in place over #18. Mucous membranes pink and moist. TMs normal bilaterally. Throat normal. dysphonia, or dyspnea. No uvular deviation or soft palate edema. NECK: Normal AROM. no induration below the mandible. Left anterior cervical tenderness reported with palpation, no apparent lymphadenopathy. CHEST: No respiratory distress. Clear to auscultation. HEART: Regular rate and rhythm. No murmur appreciated. SKIN: Warm, dry, no rash. Normal skin turgor. NEURO: No focal deficits. Alert and oriented x3. Gait steady. Course Course Emergency Course: Patient is aware of diagnosis, understands and agrees to treatment plan. Anticipatory guidance given. Patient agrees to follow-up as directed and is aware of reasons to seek care at the emergency department. Portions of this record may have been created with voice recognition software Level of Care: Express Care Visit Vital Signs Vital signs: Vital Signs Temperature 96.4 F L 12/24/24 08:16 Pulse Rate 60 12/24/24 08:16 Respiratory Rate 16 12/24/24 08:16 Blood Pressure 133/71 12/24/24 08:16 Pulse Oximetry 98 12/24/24 08:16 Temperature 96.4 F L 12/24/24 08:16 Pulse Rate 60 12/24/24 08:16 Respiratory Rate 16 12/24/24 08:16 Blood Pressure 133/71 12/24/24 08:16 Pulse Oximetry 98 12/24/24 08:16 MDM - Dental/Oral MDM Narrative Medical decision making narrative: Patients pain and complaint coupled with physical findings are consistent with stomatitis. Reviewed RX. Pt will f/u with dentist tomorrow. There are no focal signs of space occupying lesions that are compromising to the airway; Patient is non-toxic appearing. The floor of the mouth is soft with no signs of Wilfredo's Angina Patient is without trismus or drooling and able to swallow secretions. Patient is felt appropriate for discharge home with dental follow up. Discharge Plan Discharge Clinical Impression: Stomatitis Patient Disposition: Home Condition: Stable Instructions: Antibiotic Form, Dental Abscess (ED) Additional Instructions: Take antibiotic as directed May apply heat or ice to the face Gentle brushing and flossing. Rinse mouth with warm salt water at least 2 times a day. Soft foods Alternate Tylenol and ibuprofen as needed for pain Lidocaine to the site of pain, you can apply with a qtip or cotton swab Follow-up with the dentist - call tomorrow to schedule an appointment Go to the ER for worsening symptoms or concerns Patient Language: Macanese Prescriptions: New prednisone 20 mg tablet 40 mg PO DAILY 4 Days Qty: 8 0RF lidocaine HCl [Lidocaine Viscous] 2 % solution 1 applic mucous membrane TID PRN (Reason: pain) Qty: 100 0RF Rx Instructions: apply with cotton swab to site of pain amoxicillin-pot clavulanate 875-125 mg tablet 1 tablet PO Q12H 7 Days Qty: 14 0RF No Action hydrocortisone 2.5 % cream TOPICAL Eliquis 5 mg tablet tramadol 50 mg tablet 50 mg PO Q12H PRN (Reason: pain) Qty: 60 1RF Eliquis 2.5 mg tablet 5 mg PO BID ferrous sulfate 27 mg iron tablet 27 mg PO DAILY Xiidra 5 % dropperette 1 drp EACH EYE BID Rx Instructions: administer approximately 12 hours apart cetirizine [Zyrtec] 10 mg Tablet 10 mg PO DAILY tolterodine [Detrol LA] 4 mg Capsule,Extended Release 24hr 4 mg PO DAILY Centrum Women 18-400 mg-mcg Tablet 2 tablet PO DAILY fluticasone propionate 50 mcg/actuation spray,suspension 1 spray INTRANASAL DAILY PreserVision AREDS-2 250-90-40-1 mg Capsule 1 tablet PO BID calcium-vitamin D3-vitamin K 500-200-40 mg-unit-mcg tablet,chewable 1 tablet PO BID diltiazem HCl [Cardizem] 30 mg tablet 30 mg PO BID 30 Days Qty: 60 0RF methimazole 5 mg tablet See Rx Instructions .ROUTE .COMPLEX Qty: 90 3RF Dose Instruction: TAKE 1 TABLET DAILY Rx Instructions: TAKE 1 TABLET DAILY alendronate 70 mg tablet See Rx Instructions .ROUTE .COMPLEX Qty: 12 3RF Dose Instruction: TAKE 1 TABLET WEEKLY, TAKE ON SATURDAYS Rx Instructions: TAKE 1 TABLET WEEKLY, TAKE ON SATURDAYS rosuvastatin 10 mg tablet See Rx Instructions .ROUTE .COMPLEX Qty: 90 3RF Dose Instruction: TAKE 1 TABLET DAILY Rx Instructions: TAKE 1 TABLET DAILY Follow-up/Referrals: Shashi Whitaker APRN [Primary Care Provider] - Time of Disposition: 08:38
== END 2024-12-24 08:41 | disposition home or self-care (01) ==
PROVIDERS: Emergency Provider Nurse Practitioner Family; PCP Nurse Practitioner
DX: K12.1 Other forms of stomatitis (principal); I48.0 Paroxysmal atrial fibrillation; K21.9 Gastro-esophageal reflux disease without esophagitis; E78.5 Hyperlipidemia, unspecified; M19.90 Unspecified osteoarthritis, unspecified site; G25.81 Restless legs syndrome; E61.1 Iron deficiency; E74.39 Other disorders of intestinal carbohydrate absorption; E05.00 Thyrotoxicosis with diffuse goiter without thyrotoxic crisis or storm; M81.0 Age-related osteoporosis without current pathological fracture; Z90.89 Acquired absence of other organs; Z79.01 Long term (current) use of anticoagulants
CPT/HCPCS: 99213; G0463

== ENCOUNTER 2025-01-14 08:01 | Emergency (ER) | payer MEDICARE, OTHER, SELFPAY ==
--- NOTE | 2025-01-14 08:06 | ED_ITS ---
HPI - Female Genitourinary General Chief complaint: Urogenital-Female Stated complaint: VAGINAL IRRITATION Time Seen by Provider: 01/14/25 08:01 Source: patient Mode of arrival: ambulatory Limitations: no limitations History of Present Illness HPI Narrative: Venessa is a 84 year old female patient presenting to the clinic today with c/o vaginal irritation. She was seen by her PCP 6 days ago and was told to use Gloria tin to the vaginal/perineal area. Had some burning with urination and had 1+ leukocytes in the office-No urine culture was ordered. According to her PCP note, they did not think the patient had a yeast infection. Was recently on antibiotics for a tooth infection and finished it 3 days prior to seeing her PCP. States burning to the outside of the vaginal/genital area. No burning with urination-bosch with urination to the external genital area. Related Data Home Medications ?Medication ?Instructions ?Recorded ?Confirmed ?Last Taken ?Type fluticasone propionate 50 1 spray intranasal DAILY 04/11/22 01/08/25 03/15/23 08:00 History mcg/actuation nasal spray,suspension vit C 250 mg-vit E 90 mg-zinc 40 1 tablet PO BID 04/11/22 01/08/25 03/15/23 19:00 History mg-copper 1 [id number] capsule (PreserVision AREDS-2) calcium 500 mg-vitamin D3 200 1 tablet PO BID 08/12/22 01/08/25 03/15/23 08:00 H istory unit-vitamin K 40 mcg chewable tablet cetirizine 10 mg tablet (Zyrtec) 10 mg PO DAILY 03/16/23 01/08/25 03/15/23 08:00 History multivitamin-ferrous 2 tablet PO DAILY 03/16/23 01/08/25 03/15/23 08:00 History fumarate-folic acid 18 mg-400 mcg tablet (Centrum Women) tolterodine 4 mg capsule,extended 4 mg PO DAILY 03/16/23 01/08/25 03/15/23 08:00 History release 24 hr (Detrol LA) apixaban 2.5 mg tablet (Eliquis) 5 mg PO BID 08/24/23 01/08/25 Unknown History lifitegrast 5 % eye drops in a 1 drp EACH EYE BID 03/01/24 01/08/25 Unknown History dropperette (Xiidra) ferrous sulfate 27 mg iron tablet 27 mg PO DAILY 09/13/24 01/08/25 Unknown History apixaban 5 mg tablet (Eliquis) mg 12/24/24 01/08/25 Unknown History hydrocortisone 2.5 % topical cream applic topical 12/24/24 01/08/25 Unknown History Allergies Allergy/AdvReac Type Severity Reaction Status Date / Time No Known Allergies Allergy Verified 01/14/25 08:15 Review of Systems Review of Systems: Pertinent positives per HPI. Patient denies any fever, chills, rash, headache, visual changes, dizziness, cough, shortness of breath, chest pain, palpitations, nausea, vomiting, diarrhea, constipation, abdominal pain PMFSH Past Medical History Medical History Osteoporosis ALECIA (obstructive sleep apnea) Graves disease Chronic anticoagulation Paroxysmal atrial fibrillation Small bowel obstruction Vitamin D deficiency Spinal stenosis of lumbar region with radiculopathy GERD without esophagitis Overactive bladder B12 deficiency COVID-19 Memory loss Hyperlipidemia Arthritis Iron deficiency Glucose intolerance Restless leg syndrome Surgical History Surgical History History of hysterectomy History of partial thyroidectomy History of colostomy reversal History of colonoscopy complicated by bowel perforation requiring diverting loop ileostomy status post takedown in June 2013. Family History Family History Mother Family history of cardiovascular disease Sibling Carcinoma of colon Father Cerebrovascular accident 2 strokes, age 94 Sibling Family history of malignant neoplasm Sibling Lung cancer Sibling Lung cancer Other Parents Social History Social History Social History: Surrogate medical decision maker: Graciela Guzman, daughter. Code status: Full code. Smoking status: Never smoker Second hand tobacco smoke exposure: Yes Alcohol intake: never Substance use: never Substance use type: does not use Lack of Transportation: No Lack of Food: Never True Current Housing: I Have Housing Concerned About Future Housing: No Difficulty Paying Gas/Electric Bills: No Difficulty Paying for Meds: No Currently Unemployed: No Education: High School Diploma/GED Difficulty w/ Childcare or Family Care: No Additional living arrangements comments: . Has 3 children. Likes to stay busy, volunteering at the [employer]) and food pantry. She walks 3-4 miles a day. Spiritual care concerns: No Comments At the time of my signature, I reviewed and agree with the nursing past medical, surgical, social, and family history. There is no relevant family history pertinent to the patient complaint. Exam Narrative: General: Well-developed, well nourished, in no apparent distress Head: Normocephalic, atraumatic. Cardio: Regular rate and rhythm, s1 and s2 normal, no murmur appreciated. Resp: Clear to auscultation bilaterally, no rhonchi, rales, wheezing or rubs. Abdomen: Soft, pliable, bowel sounds present in all quadrants, non-tender to palpation, no CVAT tenderness. : Pelvic exam performed with (Sherlyn MITCHELL) at bedside. Verbal consent obtained from patient. Normal external female genitalia without lesions or masses, external vaginal area excoriated, red, skin glistening Urinary meatus: patent without discharge, Vagina: No lesions, masses, or discharge Genital culture and BV swabs were obtained Course Course Emergency Course: Portions of this record may have been created with voice recognition software. Level of Care: Express Care Visit Vital Signs Vital signs: Vital signs reviewed MDM - Female Genitourinary MDM Narrative Medical decision making narrative: At the time of visit patient is resting comfortably on the exam table. Patient appears to be nontoxic. C/o vaginal irritation. She was seen by her PCP 6 days ago and was told to use Desitin to the vaginal/perineal area. Had some burning with urination and had 1+ leukocytes in the office-No urine culture was ordered. According to her PCP note, they did not think the patient had a yeast infection. Was recently on antibiotics for a tooth infection and finished it 3 days prior to seeing her PCP. States burning to the outside of the vaginal/genital area. Patient has been using Desitin without relief. Patient denies any concern for sexually transmitted infections. External vaginal exam performed-genital culture and BV swabs were ordered. On exam genital area is excoriated with skin glistening-no obvious vaginal discharge Labs: Genital culture and BV swab sent to the lab. Plan: I suspect patient has a vaginal/genital yeast infection. Prescription for Diflucan and Monistat was sent to the pharmacy. Supportive measures were discussed with the patient and they voiced understanding discharge instructions and agrees to treatment plan. Return precautions reviewed Differential Diagnosis Differential diagnosis: Likely urinary tract infection, bacterial vaginosis, vaginitis, cystitis and other (Vaginal yeast infection) Discharge Plan Discharge Clinical Impression: Vaginal yeast infection Patient Disposition: Home Condition: Stable Instructions: Antibiotic Form, Yeast Infection (ED) Additional Instructions: Swabs for bacterial vaginosis and genital culture was obtained test for yeast. We will send in Diflucan and Monistat-take as directed Keep area clean and dry Follow-up with your PCP in 3-5 days Patient Language: Amharic Prescriptions: New fluconazole 150 mg tablet 150 mg PO ONCE Qty: 2 0RF Rx Instructions: as a single dose. May repeat in 72 hours if needed. miconazole nitrate 2 % ointment 1 applic topical BID 14 Days Qty: 56.7 0RF No Action hydrocortisone 2.5 % cream TOPICAL Eliquis 5 mg tablet lidocaine HCl [Lidocaine Viscous] 2 % solution 1 applic mucous membrane TID PRN (Reason: pain) Qty: 100 0RF Rx Instructions: apply with cotton swab to site of pain tramadol 50 mg tablet 50 mg PO Q12H PRN (Reason: pain) Qty: 60 1RF Eliquis 2.5 mg tablet 5 mg PO BID ferrous sulfate 27 mg iron tablet 27 mg PO DAILY Xiidra 5 % dropperette 1 drp EACH EYE BID Rx Instructions: administer approximately 12 hours apart cetirizine [Zyrtec] 10 mg Tablet 10 mg PO DAILY tolterodine [Detrol LA] 4 mg Capsule,Extended Release 24hr 4 mg PO DAILY Centrum Women 18-400 mg-mcg Tablet 2 tablet PO DAILY fluticasone propionate 50 mcg/actuation spray,suspension 1 spray INTRANASAL DAILY PreserVision AREDS-2 250-90-40-1 mg Capsule 1 tablet PO BID calcium-vitamin D3-vitamin K 500-200-40 mg-unit-mcg tablet,chewable 1 tablet PO BID diltiazem HCl [Cardizem] 30 mg tablet 30 mg PO BID 30 Days Qty: 60 0RF methimazole 5 mg tablet See Rx Instructions .ROUTE .COMPLEX Qty: 90 3RF Dose Instruction: TAKE 1 TABLET DAILY Rx Instructions: TAKE 1 TABLET DAILY alendronate 70 mg tablet See Rx Instructions .ROUTE .COMPLEX Qty: 12 3RF Dose Instruction: TAKE 1 TABLET WEEKLY, TAKE ON SATURDAYS Rx Instructions: TAKE 1 TABLET WEEKLY, TAKE ON SATURDAYS rosuvastatin 10 mg tablet See Rx Instructions .ROUTE .COMPLEX Qty: 90 3RF Dose Instruction: TAKE 1 TABLET DAILY Rx Instructions: TAKE 1 TABLET DAILY Follow-up/Referrals: Shashi Whitaker APRN [Primary Care Provider] - Time of Disposition: 08:31 Quality NIHSS Nursing Documentation ED NIHSS nursing documentation: reviewed/agree
== END 2025-01-14 08:37 | disposition home or self-care (01) ==
PROVIDERS: Emergency Provider Nurse Practitioner Family; PCP Nurse Practitioner
DX: B37.31 Acute candidiasis of vulva and vagina (principal); I48.0 Paroxysmal atrial fibrillation; M81.0 Age-related osteoporosis without current pathological fracture; E05.00 Thyrotoxicosis with diffuse goiter without thyrotoxic crisis or storm; E55.9 Vitamin D deficiency, unspecified; K21.9 Gastro-esophageal reflux disease without esophagitis; N32.81 Overactive bladder; E78.5 Hyperlipidemia, unspecified; M19.90 Unspecified osteoarthritis, unspecified site; G25.81 Restless legs syndrome; Z90.89 Acquired absence of other organs; Z79.01 Long term (current) use of anticoagulants
CPT/HCPCS: 87070; 87798; 99213; G0463

== ENCOUNTER 2025-02-03 10:09 | Emergency (ER) | payer MEDICARE, OTHER, SELFPAY ==
[2025-02-03 10:28] VITALS: BP 117/70; PULSE 76; RESP 16; TEMP 36.2; O2SAT 96
--- NOTE | 2025-02-03 10:52 | ED_ITS ---
HPI - Female Genitourinary General Chief complaint: Urogenital-Female Stated complaint: TROUBLE URINATING Time Seen by Provider: 02/03/25 10:53 Source: patient Mode of arrival: ambulatory Limitations: no limitations History of Present Illness HPI Narrative: 84 yo F presents with c/o urinary urgency, decreased output since last night. Started new medication, Trospium, 3 days ago to treat urinary frequency. Pt has prolopased bladder. denies hx of UTI. afebrile. All systems reviewed and negative except as noted above. Related Data Home Medications ?Medication ?Instructions ?Recorded ?Confirmed ?Last Taken ?Type fluticasone propionate 50 1 spray intranasal DAILY 04/11/22 01/08/25 03/15/23 08:00 History mcg/actuation nasal spray,suspension vit C 250 mg-vit E 90 mg-zinc 40 1 tablet PO BID 04/11/22 01/08/25 03/15/23 19:00 History mg-copper 1 [id number] capsule (PreserVision AREDS-2) calcium 500 mg-vitamin D3 200 1 tablet PO BID 08/12/22 01/08/25 03/15/23 08:00 History unit-vitamin K 40 mcg chewable tablet cetirizine 10 mg tablet (Zyrtec) 10 mg PO DAILY 03/16/23 01/08/25 03/15/23 08:00 History multivitamin-ferrous 2 tablet PO DAILY 03/16/23 01/08/25 03/15/23 08:00 History fumarate-folic acid 18 mg-400 mcg tablet (Centrum Women) tolterodine 4 mg capsule,extended 4 mg PO DAILY 03/16/23 01/08/25 03/15/23 08:00 History release 24 hr (Detrol LA) lifitegrast 5 % eye drops in a 1 drp EACH EYE BID 03/01/24 01/08/25 Unknown History dropperette (Xiidra) ferrous sulfate 27 mg iron tablet 27 mg PO DAILY 09/13/24 01/08/25 Unknown History apixaban 5 mg tablet (Eliquis) mg 12/24/24 01/08/25 Unknown History hydrocortisone 2.5 % topical cream applic topical 12/24/24 01/08/25 Unknown History trospium 20 mg tablet mg 02/03/25 Unknown History Allergies Allergy/AdvReac Type Severity Reaction Status Date / Time No Known Allergies Allergy Verified 02/03/25 10:18 [facility] Past Medical History Medical History Osteoporosis ALECIA (obstructive sleep apnea) Graves disease Chronic anticoagulation Paroxysmal atrial fibrillation Small bowel obstruction Vitamin D deficiency Spinal stenosis of lumbar region with radiculopathy GERD without esophagitis Overactive bladder B12 deficiency COVID-19 Memory loss Hyperlipidemia Arthritis Iron deficiency Glucose intolerance Restless leg syndrome Surgical History Surgical History History of hysterectomy History of partial thyroidectomy History of colostomy reversal History of colonoscopy complicated by bowel perforation requiring diverting loop ileostomy status post takedown in June 2013. Family History Family History Mother Family history of cardiovascular disease Sibling Carcinoma of colon Father Cerebrovascular accident 2 strokes, age 94 Sibling Family history of malignant neoplasm Sibling Lung cancer Sibling Lung cancer Other Parents Social History Social History Social History: Surrogate medical decision maker: Graciela Guzman, daughter. Code status: Full code. Smoking status: Never smoker Second hand tobacco smoke exposure: Yes Alcohol intake: never Substance use: never Substance use type: does not use Lack of Transportation: No Lack of Food: Never True Current Housing: I Have Housing Concerned About Future Housing: No Difficulty Paying Gas/Electric Bills: No Difficulty Paying for Meds: No Currently Unemployed: No Education: High School Diploma/GED Difficulty w/ Childcare or Family Care: No Additional living arrangements comments: . Has 3 children. 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 She walks 3-4 miles a day. Spiritual care concerns: No Comments At time of signature, agree with nursing past medical, surgical, social and family history. There is no relevant family history pertinent to the presenting complaint. Exam Narrative: GENERAL: This is a well-nourished, well-developed patient, in no apparent distress. HEAD: normocephalic, atraumatic. EYES: PERRL. Sclera clear/white. Vision is grossly intact. EARS: External ears normal NOSE: External nose normal NECK: Neck supple, non-tender without lymphadenopathy, masses or thyromegaly. CARDIOVASCULAR: Regular rate and rhythm without murmurs, gallops, or rubs. RESPIRATORY: Clear to auscultation. Breath sounds equal bilaterally. No wheezes, rales, or rhonchi. SKIN: warm, Dry, intact with no suspicious lesions or rash, good texture and turgor. NEURO: awake, alert, and oriented to person, place and time. There were no obvious focal neurologic abnormalities. EXTREMITIES: No joint tenderness, effusion, or edema noted. Course Course Level of Care: Express Care Visit Vital Signs Vital signs: Vital Signs Temperature 36.2 C L 02/03/25 10:28 Pulse Rate 76 02/03/25 10:28 Respiratory Rate 16 02/03/25 10:28 Blood Pressure 117/70 02/03/25 10:28 Pulse Oximetry 96 02/03/25 10:28 Temperature 36.2 C L 02/03/25 10:28 Pulse Rate 76 02/03/25 10:28 Respiratory Rate 16 02/03/25 10:28 Blood Pressure 117/70 02/03/25 10:28 Pulse Oximetry 96 02/03/25 10:28 Reviewed MDM - Female Genitourinary MDM Narrative Medical decision making narrative: Urinalysis positive leukocytes, nitrites and blood. Patient is well-appearing, nontoxic. Will treat urinary tract infection with Augmentin. Recommend patient stop trospium. Will inform her urologist. History of yeast infections when taking antibiotics. Will send fluconazole. Differential Diagnosis Differential diagnosis: Likely urinary tract infection Lab Data Labs: Lab Results 02/03/25 Range/Units 10:57 POC Urine Color Dark POC Urine Clarity Cloudy POC Urine pH 6.5 POC Ur Specif [place] 1.015 POC Urine Protein 3+ (Negative) POC Ur Glucose (UA) Negative (Negative) POC Urine Ketones Negative (Negative) POC Urine Blood 3+ (Negative) POC Urine Nitrite Positive (Negative) POC Urine Bilirubin Negative (Negative) POC Urine Urobilinogen 0.2 POC U Leukocyte Esteras 3+ (Negative) Discharge Plan Discharge Clinical Impression: Urinary tract infection Patient Disposition: Home Condition: Stable Instructions: Antibiotic Form, Urinary Tract Infection in Women (ED) Additional Instructions: Take antibiotic as prescribed. Stop Trospium and inform your urologist. Drink plenty of water and rest. If you have fever, severe pain, vomiting go to the ER. Patient Language: Nepali Prescriptions: New amoxicillin-pot clavulanate [Augmentin] 500-125 mg tablet 1 tablet PO BID 7 Days Qty: 14 0RF fluconazole 150 mg tablet 150 mg PO .q 72 Qty: 2 0RF No Action hydrocortisone 2.5 % cream TOPICAL Eliquis 5 mg tablet lidocaine HCl [Lidocaine Viscous] 2 % solution 1 applic mucous membrane TID PRN (Reason: pain) Qty: 100 0RF Rx Instructions: apply with cotton swab to site of pain fluconazole 150 mg tablet 150 mg PO ONCE Qty: 2 0RF Rx Instructions: as a single dose. May repeat in 72 hours if needed. miconazole nitrate 2 % ointment 1 applic topical BID 14 Days Qty: 56.7 0RF trospium 20 mg tablet tramadol 50 mg tablet 50 mg PO Q12H PRN (Reason: pain) Qty: 60 1RF ferrous sulfate 27 mg iron tablet 27 mg PO DAILY Xiidra 5 % dropperette 1 drp EACH EYE BID Rx Instructions: administer approximately 12 hours apart cetirizine [Zyrtec] 10 mg Tablet 10 mg PO DAILY tolterodine [Detrol LA] 4 mg Capsule,Extended Release 24hr 4 mg PO DAILY Centrum Women 18-400 mg-mcg Tablet 2 tablet PO DAILY fluticasone propionate 50 mcg/actuation spray,suspension 1 spray INTRANASAL DAILY PreserVision AREDS-2 250-90-40-1 mg Capsule 1 tablet PO BID calcium-vitamin D3-vitamin K 500-200-40 mg-unit-mcg tablet,chewable 1 tablet PO BID diltiazem HCl [Cardizem] 30 mg tablet 30 mg PO BID 30 Days Qty: 60 0RF methimazole 5 mg tablet See Rx Instructions .ROUTE .COMPLEX Qty: 90 3RF Dose Instruction: TAKE 1 TABLET DAILY Rx Instructions: TAKE 1 TABLET DAILY alendronate 70 mg tablet See Rx Instructions .ROUTE .COMPLEX Qty: 12 3RF Dose Instruction: TAKE 1 TABLET WEEKLY, TAKE ON SATURDAYS Rx Instructions: TAKE 1 TABLET WEEKLY, TAKE ON SATURDAYS rosuvastatin 10 mg tablet See Rx Instructions .ROUTE .COMPLEX Qty: 90 3RF Dose Instruction: TAKE 1 TABLET DAILY Rx Instructions: TAKE 1 TABLET DAILY Follow-up/Referrals: Shashi Whitaker APRN [Primary Care Provider] - Time of Disposition: 11:05
[2025-02-03 10:59] LABS: EDUAAPPEAR Cloudy; EDUABILI Negative (Negative); EDUABLOOD 3+ (Negative); EDUACOLOR1 Dark; EDUAGLUCOSE Negative (Negative); EDUAKETONE Negative (Negative); EDUALEUKO 3+ (Negative); EDUANITRATE Positive (Negative); EDUAPH 6.5; EDUAPROTEIN 3+ (Negative); EDUASPGRAVITY 1.015; EDUAUROBILI 0.2
== END 2025-02-03 11:08 | disposition home or self-care (01) ==
PROVIDERS: Emergency Provider Nurse Practitioner Family; PCP Nurse Practitioner
DX: N39.0 Urinary tract infection, site not specified (principal); I48.0 Paroxysmal atrial fibrillation; M81.0 Age-related osteoporosis without current pathological fracture; E05.00 Thyrotoxicosis with diffuse goiter without thyrotoxic crisis or storm; E55.9 Vitamin D deficiency, unspecified; K21.9 Gastro-esophageal reflux disease without esophagitis; E78.5 Hyperlipidemia, unspecified; G25.81 Restless legs syndrome; E61.1 Iron deficiency; Z90.89 Acquired absence of other organs; Z86.16 Personal history of COVID-19; Z79.01 Long term (current) use of anticoagulants
CPT/HCPCS: 81003; 87086; 99213; G0463

== ENCOUNTER 2025-03-10 08:01 | Outpatient (CLI) | payer MEDICARE, OTHER, SELFPAY ==
[2025-03-10 08:55] LABS: Alanine Aminotransferase 18 U/L (6-35); Albumin Level 4.2 g/dL (3.5-5.1); Alkaline Phosphatase 76 U/L (38-126); Anion Gap 7 mmol/L (4-12); Aspartate Amino Transferase 26 U/L (14-36); Bilirubin,Total 0.6 mg/dL (0.2-1.3); Blood Urea Nitrogen 14 mg/dL (7-17); Calcium 8.9 mg/dL (8.4-10.2); Carbon Dioxide 28 mmol/L (22-30); Chloride 101 mmol/L (98-107); Cholesterol 144 mg/dL (0-200); Estimated Glomerular Filt Rate > 60; Glucose 90 mg/dL (65-110); HDL Direct 40 mg/dL; Potassium 4.1 mmol/L (3.4-5.0); Sodium 136 mmol/L (137-145); Total Protein 6.5 g/dL (6.3-8.2); Triglycerides 216 mg/dL (<150)
== END 2025-03-10 08:02 | disposition home or self-care (01) ==
LOC: ANHLAB 08:04
PROVIDERS: PCP Nurse Practitioner; Visit Provider Nurse Practitioner
DX: E78.5 Hyperlipidemia, unspecified (principal)
CPT/HCPCS: 36415; 80053; 80061